=== PATIENT | male | born 1965 | race Caucasian/White ===

== ENCOUNTER 2017-03-03 16:32 | Emergency (ER) | payer BC, MEDICARE ==
[2017-03-03 17:10] VITALS: BP 155/93
--- NOTE | 2017-03-03 17:25 | EDM.PDOC ---
ED HPI GENERAL MEDICAL PROBLEM - General Chief Complaint: Upper Extremity Injury/Pain Stated Complaint: R WRIST INFECTION Time Seen by Provider: 03/03/17 17:14 Source of Information: Reports: Patient, RN Notes Reviewed - History of Present Illness INITIAL COMMENTS - FREE TEXT/NARRATIVE: 51-year-old male comes in with cellulitis dorsum of right hand. States he was working under the baeza of a vehicle about 3-4 days ago, suffered some type of puncture wound from a sharp edge of something protruding under the root of the vehicle. He states he immediately juan a his hand back. Unsure type injury. He was not concerned about retained metal or wood although everything was somewhat dirty under the baeza. He states this did not bleed much. The last 2 days this become very red swollen and more uncomfortable. No fever or chills. Right Hand Pain Score (Numeric/FACES): 7 - Related Data Allergies Allergy/AdvReac Type Severity Reaction Status Date / Time Penicillins Allergy Rash Verified 06/28/16 09:26 Sulfa (Sulfonamide Allergy Rash Verified 06/28/16 09:26 Antibiotics) Home Meds: Home Meds Insulin Glarg,Human.Rec.Analog [Lantus] 40 units INJECT BEDTIME 05/18/14 [ History] atorvaSTATin [Lipitor] 60 mg PO DAILY 05/18/14 [History] oxyCODONE HCl/Acetaminophen [Percocet 5-325 mg Tablet] 5 - 325 mg PO ASDIRECTED PRN 05/18/14 [History] Invocana 80 mg PO DAILY 12/03/15 [History] Zolpidem Tartrate [Ambien] 5 mg PO BEDTIME 12/03/15 [History] ALPRAZolam [Alprazolam] 0.5 mg PO TID PRN 06/28/16 [History] Albuterol Sulfate [Proair Hfa] 2 puff INH Q4H PRN 06/28/16 [History] Cyclobenzaprine [Flexeril] 10 mg PO Q8H PRN 06/28/16 [History] DULoxetine [Cymbalta] 60 mg PO DAILY 06/28/16 [History] Lisinopril 2.5 mg PO DAILY 06/28/16 [History] Varenicline Tartrate [Chantix] 1 mg PO BID 06/28/16 [History] Cephalexin 500 mg PO Q6HR #30 capsule 03/03/17 [Rx] Doxycycline [Vibramycin] 100 mg PO BID #20 cap 03/03/17 [Rx] Past Medical History HEENT History: Reports: Impaired Vision Other HEENT History: wears eyeglasses Cardiovascular History: Reports: High Cholesterol, Hypertension Respiratory History: Reports: Asthma, Bronchitis, Recurrent Gastrointestinal History: Reports: None Genitourinary History: Reports: Renal Calculus Musculoskeletal History: Reports: Back Pain, Chronic Other Musculoskeletal History: RBKA 1987, 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 Neurological History: Reports: Migraines Psychiatric History: Reports: Anxiety, Depression Endocrine/Metabolic History: Reports: Diabetes, Type II Oncologic (Cancer) History: Reports: None Dermatologic History: Reports: Psoriasis - Infectious Disease History Infectious Disease History: Reports: Chicken Pox - Past Surgical History GI Surgical History: Reports: Colonoscopy, EGD Social & Family History - Family History Family Medical History: Noncontributory - Tobacco Use Smoking Status *Q: Former Smoker Years of Tobacco use: 40 Packs/Tins Daily: 2 Second Hand Smoke Exposure: Yes - Caffeine Use Caffeine Use: Reports: Coffee - Alcohol Use Days Per Week of Alcohol Use: 3 Number of Drinks Per Day: 3 Total Drinks Per Week: 9 - Recreational Drug Use Recreational Drug Use: No Review of Systems - Review of Systems Review Of Systems: See Below Eyes: Reports: No Symptoms Mouth/Throat: Reports: No Symptoms Respiratory: Denies: Shortness of Breath Cardiovascular: Denies: Chest Pain GI/Abdominal: Denies: Nausea, Vomiting Musculoskeletal: Reports: Other (area of infection dorsum of right hand base of right thumb). Denies: Joint Pain Skin: Reports: Erythema (area of infection right hand) Neurological: Denies: Numbness, Tingling ED EXAM, GENERAL - Physical Exam Exam: See Below General Appearance: Alert, No Apparent Distress Throat/Mouth: Normal Inspection Head: Atraumatic. No: Facial Swelling Neck: Supple Respiratory/Chest: No Respiratory Distress Extremities: Redness (3-4 cm large area of erythema, mild swelling over dorsal base of right thumb, no open skin wound at this time, no fluctuance, no drainage mild soft tissue tenderness, good thumb range of motion, skin otherwise clear) Course - Vital Signs Last Recorded V/S: Last Vital Signs Temp 97.2 F 03/03/17 17:09 Pulse 97 03/03/17 17:09 Resp 20 03/03/17 17:09 BP 155/93 H 03/03/17 17:09 Pulse Ox 95 03/03/17 17:09 Departure - Departure Time of Disposition: 17:22 Disposition: Home, Self-Care 01 Condition: Fair Clinical Impression: Cellulitis Qualifiers: Site of cellulitis: extremity Site of cellulitis of extremity: upper extremity Laterality: right Qualified Code(s): L03.113 - Cellulitis of right upper limb - Discharge Information Prescriptions: Cephalexin 500 mg PO Q6HR #30 capsule Doxycycline [Vibramycin] 100 mg PO BID #20 cap Referrals: Natalya Wiseman NP [Primary Care Provider] - Forms: ED Department Discharge Additional Instructions: cephalexin 500 mg 4 times daily until gone, doxycycline 100 mg twice daily for 10 days or until gone, this needs to gradually start getting better day by day and should be considerably better within 3-5 days, follow-up clinic early next week if not much better, return to ED as needed
== END 2017-03-03 17:40 | disposition home or self-care (01) ==
LOC: JD.ED 16:32
DX: L03.113 Cellulitis of right upper limb (principal); E78.00 Pure hypercholesterolemia, unspecified; E11.9 Type 2 diabetes mellitus without complications; I10 Essential (primary) hypertension; Z88.0 Allergy status to penicillin; Z88.2 Allergy status to sulfonamides; Z79.4 Long term (current) use of insulin; Z79.899 Other long term (current) drug therapy; Z87.442 Personal history of urinary calculi; Z87.891 Personal history of nicotine dependence
CPT/HCPCS: 99283

== ENCOUNTER 2017-08-17 22:36 | Emergency (ER) | payer MEDICARE ==
[2017-08-17 22:55] VITALS: BP 164/84
[2017-08-17] MEDS ORDERED: Ketorolac 30 MG/ML SDV IM ONE (23:16)
[2017-08-17] MEDS ORDERED: Cyclobenzaprine 10 MG Tab PO ONE (23:16)
--- NOTE | 2017-08-17 23:21 | EDM.PDOC ---
ED HPI GENERAL MEDICAL PROBLEM - General Chief Complaint: Lower Extremity Injury/Pain Stated Complaint: CRAMPING DOWN BOTH LEGS Time Seen by Provider: 08/17/17 23:05 Source of Information: Reports: Patient - History of Present Illness INITIAL COMMENTS - FREE TEXT/NARRATIVE: Patient is here today requesting a refill on his chronic pain medications. Patient states that he has chronic lower back pain with bilateral sciatica. He has a previous amputation of his right lower extremity with a tree stump tankage grinder proximally 30 years ago and states that he's been having more phantom pain recently. Patient has had a complete workup of his lower back pain including several MRIs , consults with neurosurgeons and pain injections. Patient states there is nothing new about his pain today, it he is just here because he is out of medication. He states that he fell on the ice sometime ago and had to take more of his pain medication. Denies any loss of bowel or bladder function. Bilateral Leg Pain Score (Numeric/FACES): 9 - Related Data Allergies Allergy/AdvReac Type Severity Reaction Status Date / Time Penicillins Allergy Rash Verified 06/28/16 09:26 Sulfa (Sulfonamide Allergy Rash Verified 06/28/16 09:26 Antibiotics) Home Meds: Home Meds Insulin Glarg,Human.Rec.Analog [Lantus] 40 units INJECT BEDTIME 05/18/14 [ History] atorvaSTATin [Lipitor] 60 mg PO DAILY 05/18/14 [History] oxyCODONE HCl/Acetaminophen [Percocet 5-325 mg Tablet] 5 - 325 mg PO ASDIRECTED PRN 05/18/14 [History] Zolpidem Tartrate [Ambien] 5 mg PO BEDTIME 12/03/15 [History] ALPRAZolam [Alprazolam] 0.5 mg PO TID PRN 06/28/16 [History] Albuterol Sulfate [Proair Hfa] 2 puff INH Q4H PRN 06/28/16 [History] Cyclobenzaprine [Flexeril] 10 mg PO Q8H PRN 06/28/16 [History] Lisinopril 2.5 mg PO DAILY 06/28/16 [History] Diclofenac Sodium [Voltaren] 100 gm TP TID PRN #100 gel..gram. 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 Neurological History: Reports: Migraines Psychiatric History: Reports: Anxiety, Depression Endocrine/Metabolic History: Reports: Diabetes, Type II Oncologic (Cancer) History: Reports: None Dermatologic History: Reports: Psoriasis - Infectious Disease History Infectious Disease History: Reports: Chicken Pox - Past Surgical History GI Surgical History: Reports: Colonoscopy, EGD Social & Family History - Family History Family Medical History: Noncontributory - Tobacco Use Smoking Status *Q: Current Every Day Smoker Years of Tobacco use: 30 Packs/Tins Daily: 1 Second Hand Smoke Exposure: Yes - Caffeine Use Caffeine Use: Reports: Coffee - Alcohol Use Days Per Week of Alcohol Use: 3 Number of Drinks Per Day: 3 Total Drinks Per Week: 9 - Recreational Drug Use Recreational Drug Use: No Review of Systems - Review of Systems Review Of Systems: See Below Constitutional: Reports: No Symptoms Respiratory: Reports: No Symptoms Cardiovascular: Reports: No Symptoms Musculoskeletal: Reports: Back Pain, Muscle Pain, Muscle Stiffness, Other Skin: Reports: No Symptoms (Phantom pain of her lower extremity.) Neurological: Reports: No Symptoms Psychiatric: Reports: No Symptoms ED EXAM, GENERAL - Physical Exam Exam: See Below Exam Limited By: No Limitations General Appearance: Alert, WD/WN, No Apparent Distress Respiratory/Chest: No Respiratory Distress, Lungs Clear, Decreased Breath Sounds (Bilateral bases), Prolonged Expiration Cardiovascular: Normal Peripheral Pulses, Regular Rate, Rhythm, No Murmur Peripheral Pulses: 2+: Posterior Tibial (L) Back Exam: Normal Inspection, Decreased Range of Motion (Limited lumbar range of motion due to pain and lack of flexibility.), Muscle Spasm (Lumbar), Paraspinal Tenderness (Lumbar). No: Vertebral Tenderness Extremities: Normal Inspection, Normal Range of Motion, Other (Below-knee amputation to right lower extremity.) Neurological: Alert, Oriented Psychiatric: Normal Affect, Anxious Skin Exam: Warm, Dry, Intact Course - Vital Signs Last Recorded V/S: Last Vital Signs Temp 98.1 F 03/16/18 22:54 Pulse 84 08/17/17 22:54 Resp 20 08/17/17 22:54 BP 164/84 H 08/17/17 22:54 Pulse Ox 98 08/17/17 22:54 - Re-Assessments/Exams Free Text/Narrative Re-Assessment/Exam: Patient is here requesting refills of his alprazolam, diazepam and oxycodone. Patient has been filling these on a regular basis with his PCP, Natalya Wiseman per [facility]. On 07/24 he received diazepam 5 mg 60 quantity, oxycodone- acetaminophen 10-325 180 quantity and on 07/25/17 he received alprazolam 1 mg 90 quantity. Patient denies any new or different pain. He did discuss with patient at length that we do not refill chronic medications in the emergency room, especially controlled substances. Excellent patient the importance of taking these as prescribed so that he has enough to last through the month. Offered patient a Toradol injection and his scheduled dose of cyclobenzaprine which he accepts. Will also send Voltaren gel to pharmacy. Patient is to follow-up with his primary provider on Sunday or certainly return to the emergency room for any emergent need. 08/17/17 23:24 Departure - Departure Time of Disposition: 23:27 Disposition: Home, Self-Care 01 Condition: Good Clinical Impression: Chronic back pain Qualifiers: Back pain location: low back pain Back pain laterality: bilateral Sciatica presence: with sciatica Sciatica laterality: bilateral sciatica Qualified Code(s ): M54.42 - Lumbago with sciatica, left side; M54.41 - Lumbago with sciatica, right side; M54.41 - Lumbago with sciatica, right side; G89.29 - Other chronic pain; G89.29 - Other chronic pain - Discharge Information Prescriptions: Diclofenac Sodium [Voltaren] 100 gm TP TID PRN #100 gel..gram. PRN Reason: Pain Referrals: Natalya Wiseman, MAINTENANCE OF WAY SUPERINTENDENT [Primary Care Provider] - Additional Instructions: You were given an injection of ketorolac and your scheduled dose of cyclobenzaprine in the ER. You were prescribed a topical gel called diclofenac was also sent to pharmacy for you to supervisor opening and picking in the morning. Consider starting yoga as well. Ice or heat as needed for pain. Follow-up with your primary provider on Sunday to discuss better management of your pain or return to the emergency room as needed.
== END 2017-08-17 23:41 | disposition home or self-care (01) ==
LOC: JD.ED 22:36
DX: G89.29 Other chronic pain (principal); M54.41 Lumbago with sciatica, right side; M54.42 Lumbago with sciatica, left side; I10 Essential (primary) hypertension; E78.00 Pure hypercholesterolemia, unspecified; J45.909 Unspecified asthma, uncomplicated; F32.9 Major depressive disorder, single episode, unspecified; E11.9 Type 2 diabetes mellitus without complications; F17.210 Nicotine dependence, cigarettes, uncomplicated; Z79.899 Other long term (current) drug therapy; Z79.4 Long term (current) use of insulin; Z88.0 Allergy status to penicillin; Z88.2 Allergy status to sulfonamides
CPT/HCPCS: 96372; 99282; A9270; J1885; 99283

== ENCOUNTER 2019-08-22 06:44 | Emergency (ER) | payer MEDICARE, OTHER ==
[2019-08-22 07:01] VITALS: BP 168/122; PULSE 64
[2019-08-22] MEDS ORDERED: Sodium Chloride 0.9% 10 ML Syringe FLUSH PRN (07:09)
[2019-08-22] MEDS ORDERED: Sodium Chloride 0.9% 1,000 ML IV STA (07:09)
[2019-08-22] MEDS ORDERED: HYDROmorphone 1 MG/ML Syringe IVPUSH ONE (07:11)
--- NOTE | 2019-08-22 07:57 | EDM.PDOC ---
ED HPI GENERAL MEDICAL PROBLEM - General Chief Complaint: Abdominal Pain Stated Complaint: BACK AND ABDOMINAL PAIN Time Seen by Provider: 08/22/19 06:58 Source of Information: Reports: Patient History Limitations: Reports: No Limitations - History of Present Illness INITIAL COMMENTS - FREE TEXT/NARRATIVE: The patient presents with lower abdominal pain. This has been going on for about 2 days. He has no nausea or vomiting with it. He did have some loose stools and they were greasy. He had been diagnosed with colitis a few weeks ago and he was on some antibiotics and it got better. He has no fever or chills. He has no chest pain or shortness of breath. He has no dysuria or hematuria. He says the pain starts in his left flank and it radiated to both the left and right lower abdomen. He says he had kidney stones in the past but this feels different. Onset: Gradual Duration: Day(s): Location: Reports: Abdomen, Back Quality: Reports: Sharp Severity: Severe Improves with: Reports: None Worsens with: Reports: None Associated Symptoms: Denies: Chest Pain, Cough, Fever/Chills, Headaches, Nausea/ Vomiting, Shortness of Breath Bilateral Lower Abdomen Pain Score (Numeric/FACES): 7 - Related Data Allergies Allergy/AdvReac Type Severity Reaction Status Date / Time Penicillins Allergy Rash Verified 08/22/19 07:01 Sulfa (Sulfonamide Allergy Rash Verified 08/22/19 07:01 Antibiotics) Home Meds: Home Meds Insulin Glarg,Human.Rec.Analog [Lantus] 40 units INJECT BEDTIME 05/18/14 [ History] atorvaSTATin [Lipitor] 60 mg PO DAILY 05/18/14 [History] oxyCODONE HCl/Acetaminophen [Percocet 5-325 mg Tablet] 5 - 325 mg PO ASDIRECTED PRN 05/18/14 [History] Zolpidem Tartrate [Ambien] 5 mg PO BEDTIME 12/03/15 [History] ALPRAZolam [Alprazolam] 0.5 mg PO TID PRN 06/28/16 [History] Albuterol Sulfate [Proair Hfa] 2 puff INH Q4H PRN 06/28/16 [History] Cyclobenzaprine [Flexeril] 10 mg PO Q8H PRN 06/28/16 [History] Lisinopril 2.5 mg PO DAILY 06/28/16 [History] Diclofenac Sodium [Voltaren] 100 gm TP TID PRN #100 gel..gram. 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 Neurological History: Reports: Migraines Psychiatric History: Reports: Anxiety, Depression Endocrine/Metabolic History: Reports: Diabetes, Type II Oncologic (Cancer) History: Reports: None Dermatologic History: Reports: Psoriasis - Infectious Disease History Infectious Disease History: Reports: Chicken Pox - Past Surgical History GI Surgical History: Reports: Colonoscopy, EGD Social & Family History - Family History Family Medical History: Noncontributory - Caffeine Use Caffeine Use: Reports: Coffee ED ROS GENERAL - Review of Systems Review Of Systems: See Below Constitutional: Reports: No Symptoms HEENT: Reports: No Symptoms Respiratory: Reports: No Symptoms Cardiovascular: Reports: No Symptoms Endocrine: Reports: No Symptoms GI/Abdominal: Reports: Abdominal Pain. Denies: Diarrhea, Nausea, Vomiting : Reports: Flank Pain (Left) ED EXAM, GI/ABD - Physical Exam Exam: See Below Exam Limited By: No Limitations General Appearance: Alert, No Apparent Distress Ears: Normal External Exam Nose: Normal Inspection Head: Atraumatic, Normocephalic Neck: Normal Inspection Respiratory/Chest: No Respiratory Distress, Lungs Clear, Normal Breath Sounds Cardiovascular: Regular Rate, Rhythm, No Edema, No Murmur GI/Abdominal Exam: Soft, No Organomegaly, No Mass, Tender (Moderate tenderness to the left and right lower abdomen) Back Exam: CVA Tenderness (L) Course - Vital Signs Last Recorded V/S: Last Vital Signs Temp 96.1 F L 08/22/19 06:56 Pulse 64 08/22/19 06:56 Resp 18 08/22/19 06:56 BP 168/122 H 08/22/19 06:56 Pulse Ox 100 08/22/19 06:56 - Orders/Labs/Meds Orders: Active Orders 24 hr Category Date Time Status Peripheral IV Care [RC] . DIRECTED Care 08/22/19 07:09 Active UA W/MICROSCOPIC [URIN] Stat Lab 08/22/19 07:09 Ordered Sodium Chloride 0.9% [Saline Flush] Med 08/22/19 07:09 Active 10 ml FLUSH ASDIRECTED PRN Peripheral IV Insertion Adult [OM.PC] Stat Oth 08/22/19 07:09 Ordered Medication Orders Sodium Chloride (Saline Flush) 10 ml FLUSH ASDIRECTED PRN PRN Reason: Keep Vein Open Last Admin: 08/22/19 07:49 Dose: 10 ml Labs: Laboratory Tests 08/22/19 08/22/19 Range/Units 07:45 07:45 WBC 5.86 (4.23-9.07) K/mm3 RBC 4.97 (4.63-6.08) M/mm3 Hgb 14.9 (13.7-17.5) gm/dl Hct 42.4 (40.1-51.0) % MCV 85.3 (79.0-92.2) fl MCH 30.0 (25.7-32.2) pg MCHC 35.1 (32.2-35.5) g/dl RDW Std Deviation 40.6 (35.1-43.9) fL Plt Count 247 (163-337) K/mm3 MPV 10.8 (9.4-12.3) fl Neut % (Auto) 62.0 (34.0-67.9) % Lymph % (Auto) 26.1 (21.8-53.1) % Nolan % (Auto) 10.1 (5.3-12.2) % Eos % (Auto) 1.4 (0.8-7.0) Baso % (Auto) 0.2 (0.1-1.2) % Neut # (Auto) 3.64 (1.78-5.38) K/mm3 Lymph # (Auto) 1.53 (1.32-3.57) K/mm3 Nolan # (Auto) 0.59 (0.30-0.82) K/mm3 Eos # (Auto) 0.08 (0.04-0.54) K/mm3 Baso # (Auto) 0.01 (0.01-0.08) K/mm3 Sodium 145 D (136-145) mEq/L Potassium 3.7 (3.5-5.1) mEq/L Chloride 106 (98-107) mEq/L Carbon Dioxide 27 (21-32) mEq/L Anion Gap 15.7 H (5-15) BUN 7 (7-18) mg/dL Creatinine 0.8 (0.7-1.3) mg/dL Est Cr Clr Drug Dosing 107.73 mL/min Estimated GFR (MDRD) > 60 (>60) mL/min BUN/Creatinine Ratio 8.8 L (14-18) Glucose 237 H (74-106) mg/dL Calcium 8.9 (8.5-10.1) mg/dL Total Bilirubin 0.3 (0.2-1.0) mg/dL AST 14 L (15-37) U/L ALT 28 (16-63) U/L Alkaline Phosphatase 62 (46-116) U/L Total Protein 7.3 (6.4-8.2) g/dl Albumin 3.7 (3.4-5.0) g/dl Globulin 3.6 gm/dL Albumin/Globulin Ratio 1.0 (1-2) Lipase 123 (73-393) U/L Meds: Medications Generic Name Dose Route Start Last Admin Trade Name Anastasiia PRN Reason Stop Dose Admin Sodium Chloride 10 ml 08/22/19 07:09 08/22/19 07:49 Saline Flush FLUSH 10 ml ASDIRECTED PRN Administration Keep Vein Open Discontinued Medications Generic Name Dose Route Start Last Admin Trade Name Freq PRN Reason Stop Dose Admin Hydromorphone HCl 1 mg 08/22/19 07:11 08/22/19 07:49 Dilaudid IVPUSH 08/22/19 07:12 1 mg ONETIME ONE Administration Sodium Chloride 1,000 mls @ 1,000 mls/hr 08/22/19 07:09 08/22/19 07:47 Normal Saline IV 08/22/19 08:08 1,000 mls/hr .BOLUS STA Administration - Re-Assessments/Exams Free Text/Narrative Re-Assessment/Exam: 08/22/19 07:56 I ordered an IV NS 1L bolus, dilaudid 1mg IV, labs, UA and a CT of his abdomen and pelvis without IV or oral contrast. 08/22/19 07:57 08/22/19 09:22 His CBC looks good. His glucose was elevated at 237. His CT shows no renal calculi, ureteral dilatation or ureteral stone is seen. Mild increased stool throughout the colon. Small fat-containing left inguinal hernia. I am not sure what is causing his pain at this time. It could be some constipation. I will get him something for the pain. Departure - Departure Time of Disposition: :25 Disposition: Home, Self-Care 01 Condition: Good Clinical Impression: Abdominal pain Qualifiers: Abdominal location: lower abdomen, unspecified Qualified Code(s): R10.30 - Lower abdominal pain, unspecified - Discharge Information *PRESCRIPTION DRUG MONITORING PROGRAM REVIEWED*: Not Applicable *COPY OF PRESCRIPTION DRUG MONITORING REPORT IN PATIENT SLICK: Not Applicable Prescriptions: oxyCODONE HCl/Acetaminophen [Percocet 10-325 mg Tablet] 1 each PO Q6H PRN #20 tablet PRN Reason: Pain Referrals: Natalya Wiseman INSTRUMENTATION INSTRUCTOR [Primary Care Provider] - Forms: ED Department Discharge Additional Instructions: Drink plenty of fluids. Take a stool softener and try some magnesium citrate to help have a bowel movement. Take the percocet as needed for pain. Please return if you are worse. Sepsis Event Note - Evaluation Sepsis Screening Result: No Definite Risk - Focused Exam Vital Signs: Vital Signs Temp Pulse Resp BP Pulse Ox 08/22/19 06:56 96.1 F L 64 18 168/122 H 100 Date Exam was Performed: 08/22/19 Time Exam was Performed: 09:22 - My Orders Last 24 Hours: My Active Orders 08/22/19 07:09 Peripheral IV Care [RC] . DIRECTED UA W/MICROSCOPIC [URIN] Stat Sodium Chloride 0.9% [Saline Flush] 10 ml FLUSH ASDIRECTED PRN Peripheral IV Insertion Adult [OM.PC] Stat - Assessment/Plan Last 24 Hours: My Active Orders 08/22/19 07:09 Peripheral IV Care [RC] . DIRECTED UA W/MICROSCOPIC [URIN] Stat Sodium Chloride 0.9% [Saline Flush] 10 ml FLUSH ASDIRECTED PRN Peripheral IV Insertion Adult [OM.PC] Stat
--- NOTE | 2019-08-22 08:12 | CT ---
CT abdomen and pelvis Technique: Multiple axial sections were obtained from below the dome of the diaphragm inferiorly to the pubic symphysis. Intravenous and oral contrast not utilized. Study has been performed as a ureteral stone protocol. Comparison: No previous CT abdomen or pelvis exam is available. Findings: Kidneys show no abnormal calcifications. No ureteral dilatation or ureteral stone is seen. Visualized lung bases show nothing acute. Visualized liver and spleen shows no focal abnormality. Adrenal glands show no nodule. Pancreas is within normal limits. Gallbladder contains no calcified gallstones. Aorta shows atherosclerotic calcification without aneurysm. No retroperitoneal adenopathy or mesenteric abnormalities are seen. No pelvic mass or adenopathy is seen. Appendix is seen which appears normal in size. Fat-containing left inguinal hernia is noted. Mild increased stool is noted throughout the colon. Bone window settings were reviewed which show scattered degenerative change within the spine as well as joint space narrowing within the superior right hip. Impression: 1. No renal calculi, ureteral dilatation or ureteral stone is seen. 2. Mild increased stool throughout the colon. 3. Small fat-containing left inguinal hernia. Diagnostic code #2 Study was dictated in MDT
== END 2019-08-22 09:50 | disposition home or self-care (01) ==
LOC: JD.ED 06:44
DX: R10.31 Right lower quadrant pain (principal); R10.32 Left lower quadrant pain; I10 Essential (primary) hypertension; E11.9 Type 2 diabetes mellitus without complications; E78.00 Pure hypercholesterolemia, unspecified; J45.909 Unspecified asthma, uncomplicated; F41.9 Anxiety disorder, unspecified; F32.9 Major depressive disorder, single episode, unspecified; Z88.0 Allergy status to penicillin; Z88.2 Allergy status to sulfonamides; Z79.899 Other long term (current) drug therapy; Z79.4 Long term (current) use of insulin
CPT/HCPCS: 36415; 74176; 80053; 83690; 85025; 96361; 96374; 99284; J1170; J7030; 99283

== ENCOUNTER 2019-09-20 15:23 | Observation (INO) | payer MEDICARE, OTHER ==
[2019-09-20] MEDS ORDERED: Sodium Chloride 0.9% 10 ML Syringe FLUSH PRN (15:47)
--- NOTE | 2019-09-20 16:11 | EDM.PDOC ---
ED HPI GENERAL MEDICAL PROBLEM - General Chief Complaint: Diabetic Complaint Stated Complaint: BLOOD SUGAR OVER 400 FOR SEVERAL HOURS Time Seen by Provider: 09/20/19 15:26 Source of Information: Reports: Patient History Limitations: Reports: No Limitations - History of Present Illness INITIAL COMMENTS - FREE TEXT/NARRATIVE: Patient is a 54-year-old male who presents to the ER with complaints of elevated blood sugars over the last few days. Patient is type 2 insulin- dependent diabetic. States that he started having elevated blood sugars on . States his home blood sugars have been in the 200s to 300s. He takes Lantus 40 units at bedtime, however states he has been taking it much more frequently. Today he took 80 units of Lantus at about 8 AM and then another 40 units at 1:00. States his blood sugar at home was 3 50-400. He does not use a short acting insulin. He is also on metformin 1000 mg twice daily. Patient denies any respiratory illness, fever, chills, nausea, vomiting , or diarrhea. He has been having an increase in his restless legs and states that his vision has been "off ". Describes intermittent blurry vision and occasionally seeing off colors. States at one point his hand appeared purple but that resolved. He has had no chest pain or shortness of breath. He does complain of intermittent spasms in his bilateral shoulders. He denies any drug or alcohol abuse. 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 He has a prosthetic that he states does not fit well but denies any open wounds to the area. Patient's primary care provider is Mirna Wiseman NP. States he saw her approximately 1 month ago and that his A1c was "good ". He thinks it was less than 7 but is unsure. He has never been on a short acting insulin. States he has lost 80 pounds over the last couple years and has never had a problem with elevated blood sugars. Generalized Pain Score (Numeric/FACES): 9 - Related Data Allergies Allergy/AdvReac Type Severity Reaction Status Date / Time Penicillins Allergy Rash Verified 09/20/19 19:07 Sqmzbnv-Oeh-Mgn Reductase Allergy Other Verified 09/20/19 19:07 Inhibitor Sulfa (Sulfonamide Allergy Rash Verified 09/20/19 19:07 Antibiotics) Home Meds: Home Meds Insulin Glarg,Human.Rec.Analog [Lantus] 25 units INJECT DAILY 05/18/14 [History] RX: Cyclobenzaprine [Flexeril] 5 mg PO Q8H PRN 06/28/16 [History] HYDROmorphone [Dilaudid] 4 mg PO Q8HR PRN 09/20/19 [History] Meloxicam [Mobic] 15 mg PO DAILY 09/20/19 [History] RX: tiZANidine [Zanaflex] 4 mg PO BID PRN 09/20/19 [History] diazePAM [Valium] 5 mg PO Q6HR PRN 09/20/19 [History] metFORMIN HCl [Metformin HCl ER] 1,000 mg PO DAILY 09/20/19 [History] oxyCODONE HCl/Acetaminophen [Percocet 10-325 mg Tablet] 1 each PO Q6HR PRN 09/19 [History] Past Medical History HEENT History: Reports: Impaired Vision Other HEENT History: wears eyeglasses Cardiovascular History: Reports: High Cholesterol, Hypertension Respiratory History: Reports: Asthma, Bronchitis, Recurrent Gastrointestinal History: Reports: None Genitourinary History: Reports: Renal Calculus Musculoskeletal History: Reports: Back Pain, Chronic Other Musculoskeletal History: RBKA 1987, 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 Neurological History: Reports: Migraines Psychiatric History: Reports: Anxiety, Depression Endocrine/Metabolic History: Reports: Diabetes, Type II Oncologic (Cancer) History: Reports: None Dermatologic History: Reports: Psoriasis - Infectious Disease History Infectious Disease History: Reports: Chicken Pox - Past Surgical History GI Surgical History: Reports: Colonoscopy, EGD Social & Family History - Family History Family Medical History: Noncontributory - Tobacco Use Smoking Status *Q: Current Every Day Smoker Years of Tobacco use: 15 Packs/Tins Daily: 0.5 - Caffeine Use Caffeine Use: Reports: Coffee - Recreational Drug Use Recreational Drug Use: No ED ROS GENERAL - Review of Systems Review Of Systems: See Below Constitutional: Reports: No Symptoms. Denies: Fever, Chills, Weakness, Fatigue HEENT: Reports: Vision Change Respiratory: Reports: No Symptoms. Denies: Shortness of Breath, Wheezing, Cough Cardiovascular: Reports: No Symptoms. Denies: Chest Pain, Lightheadedness, Palpitations, Syncope Endocrine: Reports: High Glucose, Polydypsia. Denies: Polyuria GI/Abdominal: Reports: No Symptoms. Denies: Abdominal Pain, Diarrhea, Nausea, Vomiting : Reports: No Symptoms Musculoskeletal: Reports: Other (Intermittent bilateral shoulder spasms and restless legs.) Skin: Reports: No Symptoms Neurological: Reports: No Symptoms. Denies: Confusion, Dizziness, Headache Psychiatric: Reports: No Symptoms Hematologic/Lymphatic: Reports: No Symptoms Immunologic: Reports: No Symptoms ED EXAM GENERAL NO PERIP PULSE - Physical Exam Exam: See Below Exam Limited By: No Limitations General Appearance: Alert, WD/WN, Anxious Eye Exam: Bilateral Eye: Normal Inspection, PERRL Respiratory/Chest: No Respiratory Distress, Lungs Clear, Normal Breath Sounds, No Accessory Muscle Use, Chest Non-Tender Cardiovascular: Normal Peripheral Pulses, Regular Rate, Rhythm, No Edema, No Gallop, No JVD, No Murmur, No Rub GI/Abdominal: Normal Bowel Sounds, Soft, Non-Tender, No Organomegaly, No Distention, No Abnormal Bruit, No Mass Extremities: Normal Inspection, Normal Range of Motion, Non-Tender, No Pedal Edema, Normal Capillary Refill, Other (Slight scattered areas of mild redness to his below the knee amputation stump. No open areas, no swelling or drainage. No signs of infection.) Neurological: Alert, Oriented, CN II-XII Intact, Normal Cognition, Normal Reflexes, No Motor/Sensory Deficits, Other (tremor) Psychiatric: Normal Affect, Anxious Skin Exam: Warm, Dry, Intact, Normal Color, No Rash Course - Vital Signs Last Recorded V/S: Last Vital Signs Temp 97.7 F 09/20/19 18:48 Pulse 70 09/20/19 18:54 Resp 20 09/20/19 18:48 BP 140/70 09/20/19 18:54 Pulse Ox 99 09/20/19 18:48 - Orders/Labs/Meds Orders: Active Orders 24 hr Category Date Time Status Sodium Chloride 0.9% [Saline Flush] Med 09/20/19 15:47 Active 10 ml FLUSH ASDIRECTED PRN Peripheral IV Insertion Adult [OM.PC] Stat Oth 09/20/19 15:47 Ordered Medication Orders Acetaminophen (Tylenol) 650 mg PO Q4H PRN PRN Reason: Pain (Mild 1-3)/fever Albuterol/Ipratropium (Duoneb 3.0-0.5 Mg/3 Ml) 3 ml NEB Q4H PRN PRN Reason: Shortness Of Breath/wheezing Dextrose/Water (Dextrose 50% In Water) 50 ml IVPUSH ASDIRECTED PRN PRN Reason: Blood sugar <60 Docusate Sodium (Colace) 100 mg PO BID PRN PRN Reason: Constipation Enoxaparin Sodium (Lovenox) 40 mg SUBCUT DAILY [facility] Lactated Ringer's (Ringers, Lactated) 1,000 mls @ 75 mls/hr IV ASDIRECTED [facility] Last Admin: 09/20/19 20:00 Dose: 75 mls/hr Magnesium Sulfate 2 gm/ Premix 50 mls @ 25 mls/hr IV ONETIME ONE Stop: 09/20/19 21:59 Insulin Glargine (Lantus) 30 unit SUBCUT DAILY@2200 [facility] Miscellaneous Information (Remove Patch) 1 ea TRDERM DAILY [facility] Morphine Sulfate (Morphine) 1 mg IVPUSH Q4H PRN PRN Reason: Pain (severe 7-10) Last Admin: 09/20/19 20:02 Dose: 1 mg Nicotine (Habitrol) 14 mg TRDERM DAILY [facility] Last Admin: 09/20/19 19:26 Dose: Not Given Ondansetron HCl (Zofran) 4 mg IV Q4H PRN PRN Reason: Nausea/Vomiting Oxycodone/Acetaminophen (Percocet 325-5 Mg) 1 tab PO Q8H PRN PRN Reason: Pain (moderate 4-6) Sodium Chloride (Saline Flush) 10 ml FLUSH ASDIRECTED PRN PRN Reason: Keep Vein Open Last Admin: 09/20/19 15:55 Dose: 10 ml Temazepam (Restoril) 15 mg PO BEDTIME PRN PRN Reason: Sleep Labs: Laboratory Tests 09/20/19 09/20/19 09/20/19 Range/Units 15:33 15:53 15:53 WBC 5.53 (4.23-9.07) K/mm3 RBC 4.92 (4.63-6.08) M/mm3 Hgb 14.7 (13.7-17.5) gm/dl Hct 41.9 (40.1-51.0) % MCV 85.2 (79.0-92.2) fl MCH 29.9 (25.7-32.2) pg MCHC 35.1 (32.2-35.5) g/dl RDW Std Deviation 39.7 (35.1-43.9) fL Plt Count 233 (163-337) K/mm3 MPV 10.6 (9.4-12.3) fl Neut % (Auto) 50.8 (34.0-67.9) % Lymph % (Auto) 34.7 (21.8-53.1) % Pi[place] % (Auto) 12.3 H (5.3-12.2) % Eos % (Auto) 1.6 (0.8-7.0) Baso % (Auto) 0.4 (0.1-1.2) % Neut # (Auto) 2.81 (1.78-5.38) K/mm3 Lymph # (Auto) 1.92 (1.32-3.57) K/mm3 [place] # (Auto) 0.68 (0.30-0.82) K/mm3 Eos # (Auto) 0.09 (0.04-0.54) K/mm3 Baso # (Auto) 0.02 (0.01-0.08) K/mm3 Puncture Site ABG pH (7.35-7.45) ABG pCO2 (35.0-45.0) mmHg ABG pO2 (80.0-100.0) mmHg ABG HCO3 (22.0-26.0) meq/L ABG O2 Saturation (96.0-97.0) % ABG Base Excess (-2-2.0) Raymond Test A-a Gradient mmHg O2 Delivery Device FiO2 (21.00-100.00) % Sodium 133 L D (136-145) mEq/L Potassium 3.5 (3.5-5.1) mEq/L Chloride 98 (98-107) mEq/L Carbon Dioxide 25 (21-32) mEq/L Anion Gap 13.5 (5-15) BUN 9 (7-18) mg/dL Creatinine 0.9 (0.7-1.3) mg/dL Est Cr Clr Drug Dosing 95.76 mL/min Estimated GFR (MDRD) > 60 (>60) mL/min BUN/Creatinine Ratio 10.0 L (14-18) Glucose 413 H (74-106) mg/dL POC Glucose 376 H (70-105) mg/dL Hemoglobin A1c (4.50-6.20) % Lactic Acid (0.4-2.0) mmol/L Calcium 8.5 (8.5-10.1) mg/dL Magnesium 1.5 L (1.8-2.4) mg/dl Total Bilirubin 0.3 (0.2-1.0) mg/dL AST 18 (15-37) U/L ALT 39 (16-63) U/L Alkaline Phosphatase 68 (46-116) U/L Creatine Kinase (39-308) U/L Troponin I (0.00-0.056) ng/mL Total Protein 6.8 (6.4-8.2) g/dl Albumin 3.3 L (3.4-5.0) g/dl Globulin 3.5 gm/dL Albumin/Globulin Ratio 0.9 L (1-2) Urine Color (Yellow) Urine Appearance (Clear) Urine pH (5.0-8.0) Ur Specific Beulah (1.005-1.030) Urine Protein (Negative) Urine Glucose (UA) (Negative) Urine Ketones (Negative) Urine Occult Blood (Negative) Urine Nitrite (Negative) Urine Bilirubin (Negative) Urine Urobilinogen (0.2-1.0) Ur Leukocyte Esterase (Negative) Urine RBC (0-5) /hpf Urine WBC (0-5) /hpf Ur Squamous Epith Cells (0-5) /hpf Urine Bacteria (FEW) /hpf Urine Mucus (FEW) /hpf Urine Opiates Screen (TBYJQZ=238) Ur Buprenorphine Scrn (CUTOFF=10) Ur Oxycodone Screen (MDJ9LY=735) Urine Methadone Screen (BRU2RY=458) Ur Propoxyphene Screen (CSWCNJ=761) Ur Barbiturates Screen (CYJEXK=960) Ur Tricyclics Screen (OFFBRK=198) Ur Phencyclidine Scrn (CUTOFF=25) Ur Amphetamine Screen (VADSIP=286) U Methamphetamines Scrn (YSWGGU=080) U Benzodiazepines Scrn (TIHHKA=655) U Cocaine Metab Screen (TBLVBP=187) U Marijuana (THC) Screen (CUTOFF=50) Ketones (0.0-0.3) mM 09/20/19 09/20/19 09/20/19 Range/Units 15:53 15:53 15:53 WBC (4.23-9.07) K/mm3 RBC (4.63-6.08) M/mm3 Hgb (13.7-17.5) gm/dl Hct (40.1-51.0) % MCV (79.0-92.2) fl MCH (25.7-32.2) pg MCHC (32.2-35.5) g/dl RDW Std Deviation (35.1-43.9) fL Plt Count (163-337) K/mm3 MPV (9.4-12.3) fl Neut % (Auto) (34.0-67.9) % Lymph % (Auto) (21.8-53.1) % Piute % (Auto) (5.3-12.2) % Eos % (Auto) (0.8-7.0) Baso % (Auto) (0.1-1.2) % Neut # (Auto) (1.78-5.38) K/mm3 Lymph # (Auto) (1.32-3.57) K/mm3 [place] # (Auto) (0.30-0.82) K/mm3 Eos # (Auto) (0.04-0.54) K/mm3 Baso # (Auto) (0.01-0.08) K/mm3 Puncture Site ABG pH (7.35-7.45) ABG pCO2 (35.0-45.0) mmHg ABG pO2 (80.0-100.0) mmHg ABG HCO3 (22.0-26.0) meq/L ABG O2 Saturation (96.0-97.0) % ABG Base Excess (-2-2.0) Raymond Test A-a Gradient mmHg O2 Delivery Device FiO2 (21.00-100.00) % Sodium (136-145) mEq/L Potassium (3.5-5.1) mEq/L Chloride (98-107) mEq/L Carbon Dioxide (21-32) mEq/L Anion Gap (5-15) BUN (7-18) mg/dL Creatinine (0.7-1.3) mg/dL Est Cr Clr Drug Dosing mL/min Estimated GFR (MDRD) (>60) mL/min BUN/Creatinine Ratio (14-18) Glucose (74-106) mg/dL POC Glucose (70-105) mg/dL Hemoglobin A1c 8.40 H (4.50-6.20) % Lactic Acid (0.4-2.0) mmol/L Calcium (8.5-10.1) mg/dL Magnesium (1.8-2.4) mg/dl Total Bilirubin (0.2-1.0) mg/dL AST (15-37) U/L ALT (16-63) U/L Alkaline Phosphatase (46-116) U/L Creatine Kinase (39-308) U/L Troponin I < 0.017 (0.00-0.056) ng/mL Total Protein (6.4-8.2) g/dl Albumin (3.4-5.0) g/dl Globulin gm/dL Albumin/Globulin Ratio (1-2) Urine Color (Yellow) Urine Appearance (Clear) Urine pH (5.0-8.0) Ur Specific [place] (1.005-1.030) Urine Protein (Negative) Urine Glucose (UA) (Negative) Urine Ketones (Negative) Urine Occult Blood (Negative) Urine Nitrite (Negative) Urine Bilirubin (Negative) Urine Urobilinogen (0.2-1.0) Ur Leukocyte Esterase (Negative) Urine RBC (0-5) /hpf Urine WBC (0-5) /hpf Ur Squamous Epith Cells (0-5) /hpf Urine Bacteria (FEW) /hpf Urine Mucus (FEW) /hpf Urine Opiates Screen (RWREHM=766) Ur Buprenorphine Scrn (CUTOFF=10) Ur Oxycodone Screen (ZXE7RX=269) Urine Methadone Screen (LGM7VZ=280) Ur Propoxyphene Screen (WBWPXE=488) Ur Barbiturates Screen (TIMRLV=732) Ur Tricyclics Screen (JQJCHI=001) Ur Phencyclidine Scrn (CUTOFF=25) Ur Amphetamine Screen (QITPKD=666) U Methamphetamines Scrn (LEWJOP=526) U Benzodiazepines Scrn (CZNLUM=422) U Cocaine Metab Screen (ZFMEXS=614) U Marijuana (THC) Screen (CUTOFF=50) Ketones 0.14 (0.0-0.3) mM 09/20/19 09/20/19 09/20/19 Range/Units 15:53 16:03 16:29 WBC (4.23-9.07) K/mm3 RBC (4.63-6.08) M/mm3 Hgb (13.7-17.5) gm/dl Hct (40.1-51.0) % MCV (79.0-92.2) fl MCH (25.7-32.2) pg MCHC (32.2-35.5) g/dl RDW Std Deviation (35.1-43.9) fL Plt Count (163-337) K/mm3 MPV (9.4-12.3) fl Neut % (Auto) (34.0-67.9) % Lymph % (Auto) (21.8-53.1) % Pi[place] % (Auto) (5.3-12.2) % Eos % (Auto) (0.8-7.0) Baso % (Auto) (0.1-1.2) % Neut # (Auto) (1.78-5.38) K/mm3 Lymph # (Auto) (1.32-3.57) K/mm3 [place] # (Auto) (0.30-0.82) K/mm3 Eos # (Auto) (0.04-0.54) K/mm3 Baso # (Auto) (0.01-0.08) K/mm3 Puncture Site ABG pH (7.35-7.45) ABG pCO2 (35.0-45.0) mmHg ABG pO2 (80.0-100.0) mmHg ABG HCO3 (22.0-26.0) meq/L ABG O2 Saturation (96.0-97.0) % ABG Base Excess (-2-2.0) Raymond Test A-a Gradient mmHg O2 Delivery Device FiO2 (21.00-100.00) % Sodium (136-145) mEq/L Potassium (3.5-5.1) mEq/L Chloride (98-107) mEq/L Carbon Dioxide (21-32) mEq/L Anion Gap (5-15) BUN (7-18) mg/dL Creatinine (0.7-1.3) mg/dL Est Cr Clr Drug Dosing mL/min Estimated GFR (MDRD) (>60) mL/min BUN/Creatinine Ratio (14-18) Glucose (74-106) mg/dL POC Glucose (70-105) mg/dL Hemoglobin A1c (4.50-6.20) % Lactic Acid 3.5 H* (0.4-2.0) mmol/L Calcium (8.5-10.1) mg/dL Magnesium (1.8-2.4) mg/dl Total Bilirubin (0.2-1.0) mg/dL AST (15-37) U/L ALT (16-63) U/L Alkaline Phosphatase (46-116) U/L Creatine Kinase 54 (39-308) U/L Troponin I (0.00-0.056) ng/mL Total Protein (6.4-8.2) g/dl Albumin (3.4-5.0) g/dl Globulin gm/dL Albumin/Globulin Ratio (1-2) Urine Color Yellow (Yellow) Urine Appearance Clear (Clear) Urine pH 6.5 (5.0-8.0) Ur Specific [place] 1.015 (1.005-1.030) Urine Protein Negative (Negative) Urine Glucose (UA) 2+ H (Negative) Urine Ketones Negative (Negative) Urine Occult Blood Negative (Negative) Urine Nitrite Negative (Negative) Urine Bilirubin Negative (Negative) Urine Urobilinogen 0.2 (0.2-1.0) Ur Leukocyte Esterase Negative (Negative) Urine RBC 0-5 (0-5) /hpf Urine WBC 0-5 (0-5) /hpf Ur Squamous Epith Cells 0-5 (0-5) /hpf Urine Bacteria Occasional (FEW) /hpf Urine Mucus Not seen (FEW) /hpf Urine Opiates Screen (ACQMUD=405) Ur Buprenorphine Scrn (CUTOFF=10) Ur Oxycodone Screen (GXY0PR=927) Urine Methadone Screen (WYX4IS=382) Ur Propoxyphene Screen (OEDNWM=116) Ur Barbiturates Screen (DXWKKN=213) Ur Tricyclics Screen (IVQHXD=675) Ur Phencyclidine Scrn (CUTOFF=25) Ur Amphetamine Screen (DECFUL=413) U Methamphetamines Scrn (XFENOG=073) U Benzodiazepines Scrn (KXNYQL=608) U Cocaine Metab Screen (JHMQUU=711) U Marijuana (THC) Screen (CUTOFF=50) Ketones (0.0-0.3) mM 09/20/19 09/20/19 Range/Units 16:45 17:52 WBC (4.23-9.07) K/mm3 RBC (4.63-6.08) M/mm3 Hgb (13.7-17.5) gm/dl Hct (40.1-51.0) % MCV (79.0-92.2) fl MCH (25.7-32.2) pg MCHC (32.2-35.5) g/dl RDW Std Deviation (35.1-43.9) fL Plt Count (163-337) K/mm3 MPV (9.4-12.3) fl Neut % (Auto) (34.0-67.9) % Lymph % (Auto) (21.8-53.1) % [place] % (Auto) (5.3-12.2) % Eos % (Auto) (0.8-7.0) Baso % (Auto) (0.1-1.2) % Neut # (Auto) (1.78-5.38) K/mm3 Lymph # (Auto) (1.32-3.57) K/mm3 [place] # (Auto) (0.30-0.82) K/mm3 Eos # (Auto) (0.04-0.54) K/mm3 Baso # (Auto) (0.01-0.08) K/mm3 Puncture Site Lt radial ABG pH 7.36 (7.35-7.45) ABG pCO2 40.0 (35.0-45.0) mmHg ABG pO2 82.0 (80.0-100.0) mmHg ABG HCO3 22.0 (22.0-26.0) meq/L ABG O2 Saturation 97.0 (96.0-97.0) % ABG Base Excess -2.6 L (-2-2.0) Raymond Test Positive A-a Gradient 18 mmHg O2 Delivery Device Room air FiO2 21.00 (21.00-100.00) % Sodium (136-145) mEq/L Potassium (3.5-5.1) mEq/L Chloride (98-107) mEq/L Carbon Dioxide (21-32) mEq/L Anion Gap (5-15) BUN (7-18) mg/dL Creatinine (0.7-1.3) mg/dL Est Cr Clr Drug Dosing mL/min Estimated GFR (MDRD) (>60) mL/min BUN/Creatinine Ratio (14-18) Glucose (74-106) mg/dL POC Glucose (70-105) mg/dL Hemoglobin A1c (4.50-6.20) % Lactic Acid (0.4-2.0) mmol/L Calcium (8.5-10.1) mg/dL Magnesium (1.8-2.4) mg/dl Total Bilirubin (0.2-1.0) mg/dL AST (15-37) U/L ALT (16-63) U/L Alkaline Phosphatase (46-116) U/L Creatine Kinase (39-308) U/L Troponin I (0.00-0.056) ng/mL Total Protein (6.4-8.2) g/dl Albumin (3.4-5.0) g/dl Globulin gm/dL Albumin/Globulin Ratio (1-2) Urine Color (Yellow) Urine Appearance (Clear) Urine pH (5.0-8.0) Ur Specific [place] (1.005-1.030) Urine Protein (Negative) Urine Glucose (UA) (Negative) Urine Ketones (Negative) Urine Occult Blood (Negative) Urine Nitrite (Negative) Urine Bilirubin (Negative) Urine Urobilinogen (0.2-1.0) Ur Leukocyte Esterase (Negative) Urine RBC (0-5) /hpf Urine WBC (0-5) /hpf Ur Squamous Epith Cells (0-5) /hpf Urine Bacteria (FEW) /hpf Urine Mucus (FEW) /hpf Urine Opiates Screen Negative (BXOWFO=573) Ur Buprenorphine Scrn Negative (CUTOFF=10) Ur Oxycodone Screen Presumptive positive H (PLC6WH=641) Urine Methadone Screen Negative (WUY9NC=965) Ur Propoxyphene Screen Negative (MGMYGB=437) Ur Barbiturates Screen Negative (SRVERF=579) Ur Tricyclics Screen Negative (ILPQUD=687) Ur Phencyclidine Scrn Negative (CUTOFF=25) Ur Amphetamine Screen Negative (UNGXAX=558) U Methamphetamines Scrn Negative (PEIAJS=449) U Benzodiazepines Scrn Presumptive positive H (IEUWBV=201) U Cocaine Metab Screen Negative (VQWVFN=928) U Marijuana (THC) Screen Negative (CUTOFF=50) Ketones (0.0-0.3) mM Meds: Medications Generic Name Dose Route Start Last Admin Trade Name Freq PRN Reason Stop Dose Admin Acetaminophen 650 mg 09/20/19 18:34 Tylenol PO Q4H PRN Pain (Mild 1-3)/fever Albuterol/Ipratropium 3 ml 09/20/19 18:34 Duoneb 3.0-0.5 Mg/3 Ml NEB Q4H PRN Shortness Of Breath/wheezing Dextrose/Water 50 ml 09/20/19 18:34 Dextrose 50% In Water IVPUSH ASDIRECTED PRN Blood sugar <60 Docusate Sodium 100 mg 09/20/19 18:34 Colace PO BID PRN Constipation Enoxaparin Sodium 40 mg 09/21/19 09:00 Lovenox SUBCUT DAILY [facility] Lactated Ringer's 1,000 mls @ 75 mls/hr 09/20/19 19:45 09/20/19 20:00 Ringers, Lactated IV 75 mls/hr ASDIRECTED [facility] Administration Magnesium Sulfate 2 gm/ Premix 50 mls @ 25 mls/hr 09/20/19 20:00 IV 09/20/19 21:59 ONETIME ONE Insulin Glargine 30 unit 09/20/19 22:00 Lantus SUBCUT DAILY@2200 [facility] Miscellaneous Information 1 ea 09/21/19 09:00 Remove Patch TRDERM DAILY [facility] Morphine Sulfate 1 mg 09/20/19 19:35 09/20/19 20:02 Morphine IVPUSH 1 mg Q4H PRN Administration Pain (severe 7-10) Nicotine 14 mg 09/20/19 18:45 09/20/19 19:26 Habitrol TRDERM Not Given DAILY [facility] Ondansetron HCl 4 mg 09/20/19 18:34 Zofran IV Q4H PRN Nausea/Vomiting Oxycodone/Acetaminophen 1 tab 09/20/19 19:34 Percocet 325-5 Mg PO Q8H PRN Pain (moderate 4-6) Sodium Chloride 10 ml 09/20/19 15:47 09/20/19 15:55 Saline Flush FLUSH 10 ml ASDIRECTED PRN Administration Keep Vein Open Temazepam 15 mg 09/20/19 18:34 Restoril PO BEDTIME PRN Sleep Discontinued Medications Generic Name Dose Route Start Last Admin Trade Name Freq PRN Reason Stop Dose Admin Cyclobenzaprine HCl 10 mg 09/20/19 17:08 09/20/19 17:32 Flexeril PO 09/20/19 17:09 10 mg ONETIME ONE Administration Diazepam 2 mg 09/20/19 16:57 09/20/19 19:11 Valium IVPUSH 09/20/19 16:58 Not Given ONETIME ONE Hydromorphone HCl 0.5 mg 09/20/19 16:43 09/20/19 16:50 Dilaudid IVPUSH 09/20/19 16:44 0.5 mg ONETIME ONE Administration Sodium Chloride 1,000 mls @ 999 mls/hr 09/20/19 16:15 09/20/19 16:26 Normal Saline IV 999 mls/hr ASDIRECTED [facility] Administration Potassium Chloride/Sodium Chloride 1,000 mls @ 75 mls/hr 09/20/19 18:45 09/19 19:24 1/2 Ns With 20 Meq Kcl IV 75 mls/hr ASDIRECTED [facility] Administration Insulin Glargine 24 unit 09/21/19 09:00 Lantus SUBCUT DAILY [facility] Insulin Human Lispro 0 unit 09/20/19 22:00 Humalog SUBCUT QIDACANDBED [facility] Protocol Morphine Sulfate 1 mg 09/20/19 18:34 Morphine IVPUSH 09/21/19 18:41 Q2H PRN Pain (severe 7-10) Oxycodone/Acetaminophen 1 tab 09/20/19 18:34 Percocet 325-5 Mg PO Q4H PRN Pain (moderate 4-6) Potassium Chloride 40 meq 09/20/19 19:41 09/20/19 20:03 Klor-Con M20 PO 09/20/19 19:42 40 meq ONETIME ONE Administration - Re-Assessments/Exams Free Text/Narrative Re-Assessment/Exam: I have ordered a CBC, CMP, Mg, UA, urine drug screen, serum ketones, ekg and a 1L bolus of NS. Will assess further treatment need once lab results are available. 09/20/19 17:20 Patient was heard moaning loudly in the room. I went to visit with the patient again. He states that he is having muscle spasms throughout his body and pain throughout his back. Medical records work obtained from [place]. Patient has a quite extensive medication list of controlled substances including Valium, Xanax, Percocet, Dilaudid, Zanaflex, and Flexeril. Discussed this with the patient. He states he has chronic back pain in addition to muscle spasms which he did not mention on previous exam. When asked about the numerous medications he is prescribed for muscle spasms, he does state that he has frequent muscle spasms as well. Patient states he has not taken any of these medications because he ran out of Percocet on . He states that he gets 200 tablets a month and he ran out on and is not due for a refill until this coming week. He denies using any of his benzodiazepines to treat his muscle spasms. He states he does not take his Lyrica because it "does not help ". Of his medications that he is currently prescribed he states the only thing that he is taking is his metformin 1000 mg twice daily as well as his Lantus. Based on his demeanor and restlessness in the bed, my suspicion is that he may be going through opiate withdrawal which is contributing to his hyperglycemia. I have ordered Dilaudid 0.5 mg for pain as well as Flexeril 10 mg for muscle spasms. Spoke with Dr. Jimenez and she requested that we have an ABG and a CPK completed as patient's lactic acid is elevated at 3.5. I am going to hold off on insulin at this time since he is currently taken a total of 120 units of Lantus thus far today. 09/20/191814 Patient's muscle spasms, restless leg, tremor and overall restlessness improved significantly after the Dilaudid was given which further supports my suspicion of opioid withdrawal. Patient was calm in the bed. Discussed with him my suspicions. He states he does have a prescription of Percocet to be picked up at [facility] on Sunday. With the large amount of Lantus he took, continued hyperglycemia, as well as his elevated lactic acid, I do feel that it would be beneficial for him to be observed overnight. SCOTT Thomas was here to see the patient. He will be admitted for observation. Patient is in agreement with this plan. Departure - Departure Time of Disposition: 18:15 Disposition: Refer to Observation Condition: Fair Clinical Impression: Hyperglycemia Opioid dependence Qualifiers: Substance use status: in withdrawal Qualified Code(s): F11.23 - Opioid dependence with withdrawal - Discharge Information Sepsis Event Note - Evaluation Sepsis Screening Result: No Definite Risk - Focused Exam Vital Signs: Vital Signs Temp Pulse Resp BP Pulse Ox 09/20/19 15:34 98.4 F 81 13 150/99 H 96 Date Exam was Performed: 09/20/19 Time Exam was Performed: 20:30 - My Orders Last 24 Hours: My Active Orders 09/20/19 15:47 Sodium Chloride 0.9% [Saline Flush] 10 ml FLUSH ASDIRECTED PRN Peripheral IV Insertion Adult [OM.PC] Stat - Assessment/Plan Last 24 Hours: My Active Orders 09/20/19 15:47 Sodium Chloride 0.9% [Saline Flush] 10 ml FLUSH ASDIRECTED PRN Peripheral IV Insertion Adult [OM.PC] Stat
[2019-09-20] MEDS ORDERED: Sodium Chloride 0.9% 1,000 ML IV SCH (16:15)
[2019-09-20 16:24] LABS: HEMOGLOBIN A1C 8.4 % (4.50-6.20)
[2019-09-20] MEDS ORDERED: HYDROmorphone 0.5 MG/0.5 ML Syringe IVPUSH ONE (16:43)
[2019-09-20] MEDS ORDERED: Cyclobenzaprine 10 MG Tab PO ONE (17:08)
[2019-09-20] MEDS ORDERED: Morphine 2 MG/ML SYRINGE IVPUSH PRN (18:34)
[2019-09-20] MEDS ORDERED: Albuterol/Ipratropium 3.0-0.5 MG/3 ML Neb Soln NEB PRN (18:34)
[2019-09-20] MEDS ORDERED: Acetaminophen/oxyCODONE 325-5 MG Tab PO PRN (18:34)
[2019-09-20] MEDS ORDERED: Docusate Sodium 100 MG Cap PO PRN (18:34)
[2019-09-20] MEDS ORDERED: Ondansetron 4 MG/2 ML SDV IV PRN (18:34)
[2019-09-20] MEDS ORDERED: Temazepam 15 MG Cap PO PRN (18:34)
[2019-09-20] MEDS ORDERED: 50% Dextrose in Water 50 ML Syringe IVPUSH PRN (18:34)
[2019-09-20] MEDS ORDERED: Acetaminophen 325 MG Tab PO PRN (18:34)
[2019-09-20] MEDS ORDERED: Sodium Chloride 0.45% with KCl 1,000 ML IV SCH (18:45)
--- NOTE | 2019-09-20 19:01 | PCM.HP.2 ---
H&P History of Present Illness - General Date of Service: 09/20/19 Admit Problem/Dx: Admission Diagnosis/Problem Admission Diagnosis/Problem Hyperglycemia, opioid withdrawal Source of Information: Patient History Limitations: Reports: No Limitations - History of Present Illness Initial Comments - Free Text/Narative: The patient is a 54 year old male, PCP Natalya Wiseman APRN, with a past medical history of diabetes mellitus type II, chronic back pain with chronic opioid use , peripheral neuropathy, and PTSD. The patient presented to the emergency room after experiencing body shakes, muscle spasms, and head pounding for past 2 days. Since , the patient states body shaking has been constant. He has fine tremors of hands but just at rest, whole arm with start shaking. He does not lose consciousness. He has not fallen. His blood sugars have been in the 300s for past 2 days as well and this morning, his blood sugar was 400 so he took 80 units of Lantus. Blood sugar was still elevated at noon so he took another 40 units of Lantus. He usually takes Lantus 24 units daily and blood sugars are 120-200. The patient states he takes Percocet 10mg every 4 hours but has been out of medications since Sunday night. His PCP and he have been reportedly working to decrease opioid use and patient has prescription written for Percocet 5mg to be filled on Sunday. 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 The patient denies changes in vision, shortness of breath, chest pain, palpitations. He denies nausea. He does have dizziness on and off. In the ED, patient given cyclobenzaprine 10mg po x1, diazepam 2mg IV x1, and hydromorphone 0.5mg IV x1. On examination, after medication administration, patient does continue to have tremors of upper extremities though per nursing muscle spasms and body shakes have lessened. The patient is admitted on observation under the care of the hospitalist team for further workup and management of hyperglycemia , uncontrolled diabetes mellitus type II and opioid withdrawal. Generalized Pain Score (Numeric/FACES): 9 - Related Data Allergies/Adverse Reactions: Allergies Allergy/AdvReac Type Severity Reaction Status Date / Time Penicillins Allergy Rash Verified 09/20/19 19:07 Idijvaz-Qvv-[id number] Reductase Allergy Other Verified 09/20/19 19:07 Inhibitor Sulfa (Sulfonamide Allergy Rash Verified 09/20/19 19:07 Antibiotics) Home Medications: Home Meds Insulin Glarg,Human.Rec.Analog [Lantus] 1 units INJECT ASDIRECTED 05/18/14 [ History] ALPRAZolam [Alprazolam] 1 mg PO TID PRN 06/28/16 [History] Albuterol Sulfate [Proair Hfa] 2 puff INH Q4H PRN 06/28/16 [History] Cyclobenzaprine [Flexeril] 5 mg PO Q8H PRN 06/28/16 [History] HYDROmorphone [Dilaudid] 4 mg PO Q8HR PRN 09/20/19 [History] Meloxicam [Mobic] 15 mg PO DAILY 09/20/19 [History] diazePAM [Valium] 5 mg PO Q6HR PRN 09/20/19 [History] metFORMIN HCl [Metformin HCl ER] 1,000 mg PO DAILY 09/20/19 [History] oxyCODONE HCl/Acetaminophen [Percocet 10-325 mg Tablet] 1 each PO Q4HR PRN 09/19 [History] tiZANidine [Zanaflex] 4 mg PO BID 09/20/19 [History] Past Medical History HEENT History: Reports: Impaired Vision Other HEENT History: wears eyeglasses Cardiovascular History: Reports: High Cholesterol Respiratory History: Reports: COPD Gastrointestinal History: Reports: None Genitourinary History: Reports: Renal Calculus Musculoskeletal History: Reports: Amputation (R BKA), Back Pain, Chronic Other Musculoskeletal History: RBKA 1987, 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 Neurological History: Reports: Migraines Psychiatric History: Reports: Anxiety, Depression Endocrine/Metabolic History: Reports: Diabetes, Type II Oncologic (Cancer) History: Reports: None Dermatologic History: Reports: Psoriasis - Infectious Disease History Infectious Disease History: Reports: Chicken Pox - Past Surgical History GI Surgical History: Reports: Colonoscopy, EGD Social & Family History - Family History Family Medical History: Noncontributory Neurological: Reports: Alzheimers Disease (Father), CVA (Father) - Tobacco Use Smoking Status *Q: Current Every Day Smoker Years of Tobacco use: 15 Packs/Tins Daily: 0.5 - Caffeine Use Caffeine Use: Reports: Coffee - Recreational Drug Use Recreational Drug Use: No H&P Review of Systems - Review of Systems: Review Of Systems: See Below General: Reports: Weakness. Denies: Fever, Chills HEENT: Denies: Eye Pain, Sore Throat Pulmonary: Denies: Shortness of Breath Cardiovascular: Denies: Chest Pain, Palpitations Gastrointestinal: Denies: Abdominal Pain, Nausea, Vomiting Musculoskeletal: Reports: Back Pain, Joint Pain Psychiatric: Reports: Anxiety, Other (PTSD) Neurological: Reports: Dizziness, Headache (throbbing frontal), Other ( peripheral neuropathy, shaking of hands, arms, muscle spasms/convulsions) Exam - Exam Exam: See Below - Vital Signs Vital Signs: Last Vital Signs Temp 98.4 F 09/20/19 15:34 Pulse 81 09/20/19 15:34 Resp 13 09/20/19 15:34 BP 150/99 H 09/20/19 15:34 Pulse Ox 96 09/20/19 15:34 Weight: 198 lb - Exam General: Alert, Oriented, Other (Anxious appearing, does make eye contact) HEENT: EOMI, Pupils Equal, Pupils Reactive Lungs: Clear to Auscultation. No: Crackles, Rales, Wheezing Cardiovascular: Regular Rate, Regular Rhythm, Normal S1, Normal S2, Other ( distant heart sounds) GI/Abdominal Exam: Soft, Non-Tender, No Distention Extremities: No Pedal Edema, Normal Capillary Refill, Other (hands with tremors) Peripheral Pulses: 2+: Posterior Tibial (L), Posterior Tibial (R) Skin: Warm, Dry, Intact Neurological: Strength Equal Bilateral, Normal Speech. No: Focal Deficit Neuro Extensive - Mental Status: Alert, Oriented x3, Normal Mood/Affect Psychiatric: Alert, Normal Affect, Anxious - Patient Data Lab Results Last 24 hrs: Laboratory Results - last 24 hr 09/20/19 09/20/19 09/20/19 Range/Units 15:33 15:53 15:53 WBC 5.53 (4.23-9.07) K/mm3 RBC 4.92 (4.63-6.08) M/mm3 Hgb 14.7 (13.7-17.5) gm/dl Hct 41.9 (40.1-51.0) % MCV 85.2 (79.0-92.2) fl MCH 29.9 (25.7-32.2) pg MCHC 35.1 (32.2-35.5) g/dl RDW Std Deviation 39.7 (35.1-43.9) fL Plt Count 233 (163-337) K/mm3 MPV 10.6 (9.4-12.3) fl Neut % (Auto) 50.8 (34.0-67.9) % Lymph % (Auto) 34.7 (21.8-53.1) % [place] % (Auto) 12.3 H (5.3-12.2) % Eos % (Auto) 1.6 (0.8-7.0) Baso % (Auto) 0.4 (0.1-1.2) % Neut # (Auto) 2.81 (1.78-5.38) K/mm3 Lymph # (Auto) 1.92 (1.32-3.57) K/mm3 [place] # (Auto) 0.68 (0.30-0.82) K/mm3 Eos # (Auto) 0.09 (0.04-0.54) K/mm3 Baso # (Auto) 0.02 (0.01-0.08) K/mm3 Puncture Site ABG pH (7.35-7.45) ABG pCO2 (35.0-45.0) mmHg ABG pO2 (80.0-100.0) mmHg ABG HCO3 (22.0-26.0) meq/L ABG O2 Saturation (96.0-97.0) % ABG Base Excess (-2-2.0) Raymond Test A-a Gradient mmHg O2 Delivery Device FiO2 (21.00-100.00) % Sodium 133 L D (136-145) mEq/L Potassium 3.5 (3.5-5.1) mEq/L Chloride 98 (98-107) mEq/L Carbon Dioxide 25 (21-32) mEq/L Anion Gap 13.5 (5-15) BUN 9 (7-18) mg/dL Creatinine 0.9 (0.7-1.3) mg/dL Est Cr Clr Drug Dosing 95.76 mL/min Estimated GFR (MDRD) > 60 (>60) mL/min BUN/Creatinine Ratio 10.0 L (14-18) Glucose 413 H (74-106) mg/dL POC Glucose 376 H (70-105) mg/dL Hemoglobin A1c (4.50-6.20) % Lactic Acid (0.4-2.0) mmol/L Calcium 8.5 (8.5-10.1) mg/dL Magnesium 1.5 L (1.8-2.4) mg/dl Total Bilirubin 0.3 (0.2-1.0) mg/dL AST 18 (15-37) U/L ALT 39 (16-63) U/L Alkaline Phosphatase 68 (46-116) U/L Creatine Kinase (39-308) U/L Troponin I (0.00-0.056) ng/mL Total Protein 6.8 (6.4-8.2) g/dl Albumin 3.3 L (3.4-5.0) g/dl Globulin 3.5 gm/dL Albumin/Globulin Ratio 0.9 L (1-2) Urine Color (Yellow) Urine Appearance (Clear) Urine pH (5.0-8.0) Ur Specific [place] (1.005-1.030) Urine Protein (Negative) Urine Glucose (UA) (Negative) Urine Ketones (Negative) Urine Occult Blood (Negative) Urine Nitrite (Negative) Urine Bilirubin (Negative) Urine Urobilinogen (0.2-1.0) Ur Leukocyte Esterase (Negative) Urine RBC (0-5) /hpf Urine WBC (0-5) /hpf Ur Squamous Epith Cells (0-5) /hpf Urine Bacteria (FEW) /hpf Urine Mucus (FEW) /hpf Urine Opiates Screen (MZEPQF=409) Ur Buprenorphine Scrn (CUTOFF=10) Ur Oxycodone Screen (QML0OX=136) Urine Methadone Screen (PQR3RJ=334) Ur Propoxyphene Screen (GVBBUB=619) Ur Barbiturates Screen (ABAFZF=848) Ur Tricyclics Screen (CABMVF=438) Ur Phencyclidine Scrn (CUTOFF=25) Ur Amphetamine Screen (ADNQNS=847) U Methamphetamines Scrn (JDHRDG=616) U Benzodiazepines Scrn (SPVGFC=294) U Cocaine Metab Screen (QQFLYA=160) U Marijuana (THC) Screen (CUTOFF=50) Ketones (0.0-0.3) mM 09/20/19 09/20/19 09/20/19 Range/Units 15:53 15:53 15:53 WBC (4.23-9.07) K/mm3 RBC (4.63-6.08) M/mm3 Hgb (13.7-17.5) gm/dl Hct (40.1-51.0) % MCV (79.0-92.2) fl MCH (25.7-32.2) pg MCHC (32.2-35.5) g/dl RDW Std Deviation (35.1-43.9) fL Plt Count (163-337) K/mm3 MPV (9.4-12.3) fl Neut % (Auto) (34.0-67.9) % Lymph % (Auto) (21.8-53.1) % [place] % (Auto) (5.3-12.2) % Eos % (Auto) (0.8-7.0) Baso % (Auto) (0.1-1.2) % Neut # (Auto) (1.78-5.38) K/mm3 Lymph # (Auto) (1.32-3.57) K/mm3 [place] # (Auto) (0.30-0.82) K/mm3 Eos # (Auto) (0.04-0.54) K/mm3 Baso # (Auto) (0.01-0.08) K/mm3 Puncture Site ABG pH (7.35-7.45) ABG pCO2 (35.0-45.0) mmHg ABG pO2 (80.0-100.0) mmHg ABG HCO3 (22.0-26.0) meq/L ABG O2 Saturation (96.0-97.0) % ABG Base Excess (-2-2.0) Raymond Test A-a Gradient mmHg O2 Delivery Device FiO2 (21.00-100.00) % Sodium (136-145) mEq/L Potassium (3.5-5.1) mEq/L Chloride (98-107) mEq/L Carbon Dioxide (21-32) mEq/L Anion Gap (5-15) BUN (7-18) mg/dL Creatinine (0.7-1.3) mg/dL Est Cr Clr Drug Dosing mL/min Estimated GFR (MDRD) (>60) mL/min BUN/Creatinine Ratio (14-18) Glucose (74-106) mg/dL POC Glucose (70-105) mg/dL Hemoglobin A1c 8.40 H (4.50-6.20) % Lactic Acid (0.4-2.0) mmol/L Calcium (8.5-10.1) mg/dL Magnesium (1.8-2.4) mg/dl Total Bilirubin (0.2-1.0) mg/dL AST (15-37) U/L ALT (16-63) U/L Alkaline Phosphatase (46-116) U/L Creatine Kinase (39-308) U/L Troponin I < 0.017 (0.00-0.056) ng/mL Total Protein (6.4-8.2) g/dl Albumin (3.4-5.0) g/dl Globulin gm/dL Albumin/Globulin Ratio (1-2) Urine Color (Yellow) Urine Appearance (Clear) Urine pH (5.0-8.0) Ur Specific [place] (1.005-1.030) Urine Protein (Negative) Urine Glucose (UA) (Negative) Urine Ketones (Negative) Urine Occult Blood (Negative) Urine Nitrite (Negative) Urine Bilirubin (Negative) Urine Urobilinogen (0.2-1.0) Ur Leukocyte Esterase (Negative) Urine RBC (0-5) /hpf Urine WBC (0-5) /hpf Ur Squamous Epith Cells (0-5) /hpf Urine Bacteria (FEW) /hpf Urine Mucus (FEW) /hpf Urine Opiates Screen (TQPOOM=853) Ur Buprenorphine Scrn (CUTOFF=10) Ur Oxycodone Screen (TVQ2SD=022) Urine Methadone Screen (MTS1EW=202) Ur Propoxyphene Screen (RSFOCX=764) Ur Barbiturates Screen (FJCWOY=108) Ur Tricyclics Screen (JOQTCK=084) Ur Phencyclidine Scrn (CUTOFF=25) Ur Amphetamine Screen (TWRBBT=577) U Methamphetamines Scrn (DEQBSD=907) U Benzodiazepines Scrn (XGOLTG=144) U Cocaine Metab Screen (HWDXDI=047) U Marijuana (THC) Screen (CUTOFF=50) Ketones 0.14 (0.0-0.3) mM 09/20/19 09/20/19 09/20/19 Range/Units 15:53 16:03 16:29 WBC (4.23-9.07) K/mm3 RBC (4.63-6.08) M/mm3 Hgb (13.7-17.5) gm/dl Hct (40.1-51.0) % MCV (79.0-92.2) fl MCH (25.7-32.2) pg MCHC (32.2-35.5) g/dl RDW Std Deviation (35.1-43.9) fL Plt Count (163-337) K/mm3 MPV (9.4-12.3) fl Neut % (Auto) (34.0-67.9) % Lymph % (Auto) (21.8-53.1) % [place] % (Auto) (5.3-12.2) % Eos % (Auto) (0.8-7.0) Baso % (Auto) (0.1-1.2) % Neut # (Auto) (1.78-5.38) K/mm3 Lymph # (Auto) (1.32-3.57) K/mm3 [place] # (Auto) (0.30-0.82) K/mm3 Eos # (Auto) (0.04-0.54) K/mm3 Baso # (Auto) (0.01-0.08) K/mm3 Puncture Site ABG pH (7.35-7.45) ABG pCO2 (35.0-45.0) mmHg ABG pO2 (80.0-100.0) mmHg ABG HCO3 (22.0-26.0) meq/L ABG O2 Saturation (96.0-97.0) % ABG Base Excess (-2-2.0) Raymond Test A-a Gradient mmHg O2 Delivery Device FiO2 (21.00-100.00) % Sodium (136-145) mEq/L Potassium (3.5-5.1) mEq/L Chloride (98-107) mEq/L Carbon Dioxide (21-32) mEq/L Anion Gap (5-15) BUN (7-18) mg/dL Creatinine (0.7-1.3) mg/dL Est Cr Clr Drug Dosing mL/min Estimated GFR (MDRD) (>60) mL/min BUN/Creatinine Ratio (14-18) Glucose (74-106) mg/dL POC Glucose (70-105) mg/dL Hemoglobin A1c (4.50-6.20) % Lactic Acid 3.5 H* (0.4-2.0) mmol/L Calcium (8.5-10.1) mg/dL Magnesium (1.8-2.4) mg/dl Total Bilirubin (0.2-1.0) mg/dL AST (15-37) U/L ALT (16-63) U/L Alkaline Phosphatase (46-116) U/L Creatine Kinase 54 (39-308) U/L Troponin I (0.00-0.056) ng/mL Total Protein (6.4-8.2) g/dl Albumin (3.4-5.0) g/dl Globulin gm/dL Albumin/Globulin Ratio (1-2) Urine Color Yellow (Yellow) Urine Appearance Clear (Clear) Urine pH 6.5 (5.0-8.0) Ur Specific [place] 1.015 (1.005-1.030) Urine Protein Negative (Negative) Urine Glucose (UA) 2+ H (Negative) Urine Ketones Negative (Negative) Urine Occult Blood Negative (Negative) Urine Nitrite Negative (Negative) Urine Bilirubin Negative (Negative) Urine Urobilinogen 0.2 (0.2-1.0) Ur Leukocyte Esterase Negative (Negative) Urine RBC 0-5 (0-5) /hpf Urine WBC 0-5 (0-5) /hpf Ur Squamous Epith Cells 0-5 (0-5) /hpf Urine Bacteria Occasional (FEW) /hpf Urine Mucus Not seen (FEW) /hpf Urine Opiates Screen (BOSLAR=592) Ur Buprenorphine Scrn (CUTOFF=10) Ur Oxycodone Screen (EMA0QH=791) Urine Methadone Screen (IUC3LO=987) Ur Propoxyphene Screen (TFPBRL=961) Ur Barbiturates Screen (HLVHSK=041) Ur Tricyclics Screen (OBKEST=319) Ur Phencyclidine Scrn (CUTOFF=25) Ur Amphetamine Screen (PGGZWN=124) U Methamphetamines Scrn (XVCZYZ=850) U Benzodiazepines Scrn (LNXAJE=677) U Cocaine Metab Screen (SMKEPC=068) U Marijuana (THC) Screen (CUTOFF=50) Ketones (0.0-0.3) mM 09/20/19 09/20/19 Range/Units 16:45 17:52 WBC (4.23-9.07) K/mm3 RBC (4.63-6.08) M/mm3 Hgb (13.7-17.5) gm/dl Hct (40.1-51.0) % MCV (79.0-92.2) fl MCH (25.7-32.2) pg MCHC (32.2-35.5) g/dl RDW Std Deviation (35.1-43.9) fL Plt Count (163-337) K/mm3 MPV (9.4-12.3) fl Neut % (Auto) (34.0-67.9) % Lymph % (Auto) (21.8-53.1) % [place] % (Auto) (5.3-12.2) % Eos % (Auto) (0.8-7.0) Baso % (Auto) (0.1-1.2) % Neut # (Auto) (1.78-5.38) K/mm3 Lymph # (Auto) (1.32-3.57) K/mm3 [place] # (Auto) (0.30-0.82) K/mm3 Eos # (Auto) (0.04-0.54) K/mm3 Baso # (Auto) (0.01-0.08) K/mm3 Puncture Site Lt radial ABG pH 7.36 (7.35-7.45) ABG pCO2 40.0 (35.0-45.0) mmHg ABG pO2 82.0 (80.0-100.0) mmHg ABG HCO3 22.0 (22.0-26.0) meq/L ABG O2 Saturation 97.0 (96.0-97.0) % ABG Base Excess -2.6 L (-2-2.0) Raymond Test Positive A-a Gradient 18 mmHg O2 Delivery Device Room air FiO2 21.00 (21.00-100.00) % Sodium (136-145) mEq/L Potassium (3.5-5.1) mEq/L Chloride (98-107) mEq/L Carbon Dioxide (21-32) mEq/L Anion Gap (5-15) BUN (7-18) mg/dL Creatinine (0.7-1.3) mg/dL Est Cr Clr Drug Dosing mL/min Estimated GFR (MDRD) (>60) mL/min BUN/Creatinine Ratio (14-18) Glucose (74-106) mg/dL POC Glucose (70-105) mg/dL Hemoglobin A1c (4.50-6.20) % Lactic Acid (0.4-2.0) mmol/L Calcium (8.5-10.1) mg/dL Magnesium (1.8-2.4) mg/dl Total Bilirubin (0.2-1.0) mg/dL AST (15-37) U/L ALT (16-63) U/L Alkaline Phosphatase (46-116) U/L Creatine Kinase (39-308) U/L Troponin I (0.00-0.056) ng/mL Total Protein (6.4-8.2) g/dl Albumin (3.4-5.0) g/dl Globulin gm/dL Albumin/Globulin Ratio (1-2) Urine Color (Yellow) Urine Appearance (Clear) Urine pH (5.0-8.0) Ur Specific [place] (1.005-1.030) Urine Protein (Negative) Urine Glucose (UA) (Negative) Urine Ketones (Negative) Urine Occult Blood (Negative) Urine Nitrite (Negative) Urine Bilirubin (Negative) Urine Urobilinogen (0.2-1.0) Ur Leukocyte Esterase (Negative) Urine RBC (0-5) /hpf Urine WBC (0-5) /hpf Ur Squamous Epith Cells (0-5) /hpf Urine Bacteria (FEW) /hpf Urine Mucus (FEW) /hpf Urine Opiates Screen Negative (JOKTHP=216) Ur Buprenorphine Scrn Negative (CUTOFF=10) Ur Oxycodone Screen Presumptive positive H (JGN2NG=940) Urine Methadone Screen Negative (QMB2YA=752) Ur Propoxyphene Screen Negative (AFZAPW=600) Ur Barbiturates Screen Negative (VYKLUG=072) Ur Tricyclics Screen Negative (ZWAPAQ=325) Ur Phencyclidine Scrn Negative (CUTOFF=25) Ur Amphetamine Screen Negative (XOKIZI=397) U Methamphetamines Scrn Negative (EHGCAG=198) U Benzodiazepines Scrn Presumptive positive H (QNPZID=676) U Cocaine Metab Screen Negative (KTZRAS=558) U Marijuana (THC) Screen Negative (CUTOFF=50) Ketones (0.0-0.3) mM Result Diagrams: 09/20/19 15:53 09/20/19 15:53 Sepsis Event Note - Evaluation Sepsis Screening Result: No Definite Risk - Focused Exam Vital Signs: Vital Signs Temp Pulse Resp BP Pulse Ox 09/20/19 15:34 98.4 F 81 13 150/99 H 96 Capillary Refill, Detail: Less than/Equal to (</=) 2 Seconds Pulse Description: 2+ Normal Skin Exam (Focused Sepsis): Normal Turgor, [place] Date Exam was Performed: 09/20/19 Time Exam was Performed: 20:00 *Q Meaningful Use (ADM) - VTE Risk Assess *Q Each Risk Factor Represents 1 Point: Age 41 - 59 years, Abnormal Pulmonary Function (COPD), Other Risk Factor (Right BKA) Total Score 1 Point Risk Factors: 3 - Problem List (1) Insomnia SNOMED Code(s): 752218308 ICD Code: G47.00 - INSOMNIA, UNSPECIFIED Status: Acute Current Visit: Yes (2) Diabetes mellitus type 2, insulin dependent SNOMED Code(s): 559517092 ICD Code: E11.9 - TYPE 2 DIABETES MELLITUS WITHOUT COMPLICATIONS; Z79.4 - MANAGER CODE (CURRENT) USE OF INSULIN Status: Chronic Current Visit: Yes (3) Hypomagnesemia SNOMED Code(s): 607863656 ICD Code: E83.42 - HYPOMAGNESEMIA Status: Acute Current Visit: Yes (4) Nicotine dependence SNOMED Code(s): 54630628 ICD Code: F17.200 - NICOTINE DEPENDENCE, UNSPECIFIED, UNCOMPLICATED Status : Chronic Current Visit: Yes (5) Hyperglycemia SNOMED Code(s): 69363185 ICD Code: R73.9 - HYPERGLYCEMIA, UNSPECIFIED Status: Acute Priority: High Current Visit: Yes (6) Opioid dependence SNOMED Code(s): 65624890 ICD Code: F11.20 - OPIOID DEPENDENCE, UNCOMPLICATED Status: Acute Priority: High Current Visit: Yes Qualifiers: Substance use status: in withdrawal Qualified Code(s): F11.23 - Opioid dependence with withdrawal (7) Chronic back pain SNOMED Code(s): 877487030 ICD Code: M54.9 - DORSALGIA, UNSPECIFIED; G89.29 - OTHER CHRONIC PAIN Status: Chronic Priority: Medium Current Visit: No Qualifiers: Back pain location: low back pain Back pain laterality: bilateral Sciatica presence: with sciatica Sciatica laterality: bilateral sciatica Qualified Code(s): M54.42 - Lumbago with sciatica, left side; M54.41 - Lumbago with sciatica, right side; G89.29 - Other chronic pain (8) Polypharmacy SNOMED Code(s): 888993422 ICD Code: Z79.899 - OTHER MANAGER CODE (CURRENT) DRUG THERAPY Status: Chronic Priority: Medium Current Visit: Yes Problem List Initiated/Reviewed/Updated: Yes Orders Last 24hrs: Active Orders 24 hr Category Date Time Status Patient Status [ADT] Routine ADT 09/20/19 18:10 Active Blood Glucose Check, Bedside [RC] QIDACANDBED Care 09/20/19 18:34 Active EKG Documentation Completion [RC] STAT Care 09/20/19 16:06 Active Oxygen Therapy [RC] PRN Care 09/20/19 18:34 Active Peripheral IV Care [RC] Q2H Care 09/20/19 15:47 Active Pulse Oximetry [RC] CONTINUOUS Care 09/20/19 18:35 Active RT Aerosol Therapy [RC] ASDIRECTED Care 09/20/19 18:45 Active Up With Assistance [RC] BID Care 09/20/19 18:34 Active VTE/DVT Education [RC] BID Care 09/20/19 18:34 Active Vital Signs [RC] Q4H Care 09/20/19 18:34 Active [employer] Diet [DIET] Diet 09/21/19 Breakfast Active BASIC METABOLIC PANEL,BMP [CHEM] AM Lab 09/21/19 05:11 Ordered MAGNESIUM [CHEM] AM Lab 09/21/19 05:11 Ordered PHOSPHORUS [CHEM] AM Lab 09/21/19 05:11 Ordered Acetaminophen [Tylenol] Med 09/20/19 18:34 Active 650 mg PO Q4H PRN Acetaminophen/oxyCODONE [Percocet 325-5 MG] Med 09/20/19 18:34 Active 1 tab PO Q4H PRN Albuterol/Ipratropium [DuoNeb 3.0-0.5 MG/3 ML] Med 09/20/19 18:34 Active 3 ml NEB Q4H PRN Dextrose 50% in Water Med 09/20/19 18:34 Active 50 ml IVPUSH ASDIRECTED PRN Docusate Sodium [Colace] Med 09/20/19 18:34 Active 100 mg PO BID PRN Enoxaparin [Lovenox] Med 09/21/19 09:00 Active 40 mg SUBCUT DAILY Insulin Glarg,Human.Rec.Analog [LantUS] Med 09/21/19 09:00 Active 24 unit SUBCUT DAILY Insulin Lispro [HumaLOG] Med 09/20/19 22:00 Ordered See Protocol SUBCUT QIDACANDBED Morphine Med 09/20/19 18:34 Active 1 mg IVPUSH Q2H PRN Nicotine [Habitrol] Med 09/20/19 18:45 Active 14 mg TRDERM DAILY Ondansetron [Zofran] Med 09/20/19 18:34 Active 4 mg IV Q4H PRN Sodium Chloride 0.45% with KCl [1/2 NS with 20 mEq KCl] Med 09/20/19 18:45 Active 1,000 ml IV ASDIRECTED Sodium Chloride 0.9% [Normal Saline] 1,000 ml Med 09/20/19 16:15 Active IV ASDIRECTED Sodium Chloride 0.9% [Saline Flush] Med 09/20/19 15:47 Active 10 ml FLUSH ASDIRECTED PRN Temazepam [Restoril] Med 09/20/19 18:34 Active 15 mg PO BEDTIME PRN Peripheral IV Insertion Adult [OM.PC] Stat Oth 09/20/19 15:47 Ordered Resuscitation Status Routine Resus Stat 09/20/19 18:34 Ordered Medication Orders Acetaminophen (Tylenol) 650 mg PO Q4H PRN PRN Reason: Pain (Mild 1-3)/fever Albuterol/Ipratropium (Duoneb 3.0-0.5 Mg/3 Ml) 3 ml NEB Q4H PRN PRN Reason: Shortness Of Breath/wheezing Dextrose/Water (Dextrose 50% In Water) 50 ml IVPUSH ASDIRECTED PRN PRN Reason: Blood sugar <60 Docusate Sodium (Colace) 100 mg PO BID PRN PRN Reason: Constipation Enoxaparin Sodium (Lovenox) 40 mg SUBCUT DAILY [facility] Sodium Chloride (Normal Saline) 1,000 mls @ 999 mls/hr IV ASDIRECTED [facility] Last Admin: 09/20/19 16:26 Dose: 999 mls/hr Potassium Chloride/Sodium Chloride (1/2 Ns With 20 Meq Kcl) 1,000 mls @ 75 mls/ hr IV ASDIRECTED [facility] Insulin Glargine (Lantus) 24 unit SUBCUT DAILY [facility] Insulin Human Lispro (Humalog) 0 unit SUBCUT QIDACANDBED [facility]; Protocol Morphine Sulfate (Morphine) 1 mg IVPUSH Q2H PRN PRN Reason: Pain (severe 7-10) Stop: 09/21/19 18:41 Nicotine (Habitrol) 14 mg TRDERM DAILY [facility] Ondansetron HCl (Zofran) 4 mg IV Q4H PRN PRN Reason: Nausea/Vomiting Oxycodone/Acetaminophen (Percocet 325-5 Mg) 1 tab PO Q4H PRN PRN Reason: Pain (moderate 4-6) Sodium Chloride (Saline Flush) 10 ml FLUSH ASDIRECTED PRN PRN Reason: Keep Vein Open Last Admin: 09/20/19 15:55 Dose: 10 ml Temazepam (Restoril) 15 mg PO BEDTIME PRN PRN Reason: Sleep Assessment/Plan Comment:: Hyperglycemia, uncontrolled DM type II. Blood sugar is 413. CO2 normal. No ketones in urine. IV fluid resuscitation with LR running at 75ml/hr. Started on glargine 30 units subcu qhs. FSBG at meals and at night. ADA diet while in house. Reason for hyperglycemia is unknown but could be due to opioid withdrawal. Patient is without signs of infection. BMP w/ potassium and phosphorous repeated in AM. Opioid withdrawal. Pt does continue to have tremors of hands, arms. For now alert, oriented to person, place, time. No focal neural deficits. Pt will remain on continuous respiratory monitoring until sure patient O2 saturation stable. Fall precautions , seizure precautions. Acetaminophen 650mg po q6h as needed mild pain, Percocet 5/325mg po q8h as needed pain 4-6, morphine 1mg IV q4h as needed for pain 7-10/ 10. Patient has prescription for Percocet 5/325mg q4h to be filled on Sunday prescribed by PCP. This is step down from current Percocet 10/325mg. COPD. Patient is without acute exacerbation. Will receive duoneb nebulizer treatments 3mL q6h as needed for wheezing. Smoking cessation education. Hypomagnesemia. Mg level is 1.5. Will give Mag sulfate 2g IV x1. Will recheck in AM. Chronic back pain. Percocet 5/325mg po q8h as needed pain 4-6, morphine 1mg IV q4h as needed for pain 7-10/10. Patient has prescription for Percocet 5/325mg q4h to be filled on Sunday prescribed by PCP. This is step down from current Percocet 10/325mg. See note below on polypharmacy. Insomnia. Patient is on multiple benzodiazepines at home. We will give patient temazepam 15mg oral qhs as needed for insomnia but otherwise no benzos. Polypharmacy. Home medications include flexeril 5mg q8h as needed, dilaudid 4mg po q8hr as needed, Percocet 10-325mg po q4h as needed, Zanaflex 4mg po BID, diazepam 5mg po q6h as needed for anxiety, and alprazolam 1mg po TID as needed for anxiety. We will overhaul home medications. For now, patient will remain on pain control as stated above and temazepam 15mg oral qhs for insomnia, No other narcotic or benzos. Nicotine dependence. Smokes a half pack a day. Nicotine cessation discussed. Nicotine patch 14mg transdermal daily. Prophylaxis. GI prophylaxis not indicated. DVT prophylaxis with lovenox 40mg subcu q24h. COVID assessment. Patient has not traveled out of state. No fevers, chills or shortness of breath. No cough. No loss of taste. He has not been near anyone with diagnosed covid. No need for further COVID testing or precautions. Code status: Full Code Disposition: Blood sugars controlled, fluid resuscitation, monitoring opioid withdrawal. Probable discharge in 24 hours if no acute events overnight. - Mortality Measure Prognosis:: Good
[2019-09-20] MEDS: Nicotine 14 MG/24 Hr Patch TRDERM SCH (19:26)
[2019-09-20] MEDS ORDERED: Potassium Chloride 20 MEQ Tab.ER PO ONE (19:41)
[2019-09-20] MEDS ORDERED: Magnesium Sulfate/Water 2 GM in Premix Bag 1 BAG IV ONE (20:00)
[2019-09-20] MEDS: Lactated Ringers 1,000 ML IV SCH (20:00)
[2019-09-20] MEDS: Morphine 2 MG/ML SYRINGE IVPUSH PRN (20:02)
[2019-09-20] MEDS: Insulin Glarg,Human.Rec.Analog 100 Unit/ML SUBCUT SCH (21:20)
[2019-09-20] MEDS ORDERED: Insulin Lispro 100 Units/ML 3 ML Vial SUBCUT SCH (22:00)
[2019-09-21] MEDS: Morphine 2 MG/ML SYRINGE IVPUSH PRN ×3 (01:06→22:59)
[2019-09-21] MEDS: Acetaminophen/oxyCODONE 325-5 MG Tab PO PRN ×2 (04:15→16:07)
[2019-09-21] MEDS ORDERED: Insulin Glarg,Human.Rec.Analog 100 Unit/ML SUBCUT SCH (09:00)
[2019-09-21] MEDS: Enoxaparin 40 MG/0.4 ML Syringe SUBCUT SCH (09:01)
[2019-09-21] MEDS: Lactated Ringers 1,000 ML IV SCH (09:05)
[2019-09-21] MEDS: Nicotine 14 MG/24 Hr Patch TRDERM SCH (09:34)
--- NOTE | 2019-09-21 11:26 | PCM.PN ---
- General Info Date of Service: 09/21/19 Admission Dx/Problem (Free Text): Admission Diagnosis/Problem Admission Diagnosis/Problem Hyperglycemia, opioid withdrawal Subjective Update: The patient was seen by me, case discussed with Dr. Jimenez. The patient has less shaking of extremities this morning, though tremors are still present and has not had "convulsions" of muscles. He no longer has muscle spasms. He does continue to have some tingling in hands and foot which are chronic. He is now without headache. No chest pain, nausea, or diarrhea. He denies fevers, chills. He is able to eat and drink well. On discussion with nurses and evaluation with patient, it is made apparent, diabetes is not being managed well at home. When discussing w/ nurses, patient notes he will eat ice cream and then give himself 100 units of insulin. Patient watched educational video and does not have questions but continues to say his body works differently so he takes medications differently than prescribed. He also states he will take 3 valium in the morning and then none during the day even though valium is prescribed for 4x a day as needed. Functional Status: Reports: Pain Controlled, Tolerating Diet - Review of Systems General: Reports: No Symptoms Pulmonary: Denies: Shortness of Breath, Pleuritic Chest Pain, Cough, Wheezing Cardiovascular: Denies: Chest Pain, Palpitations, Lightheadedness Gastrointestinal: Denies: Abdominal Pain, Constipation, Diarrhea, Nausea Neurological: Reports: Tingling (of fingers and left foot, states it's chronic) . Denies: Dizziness, Headache Psychiatric: Reports: Anxiety. Denies: Confusion, Depression, Mood Lability - Patient Data Vitals - Most Recent: Last Vital Signs Temp 98.1 F 09/21/19 08:23 Pulse 72 09/21/19 08:23 Resp 15 09/21/19 08:23 BP 152/82 H 09/21/19 08:23 Pulse Ox 96 09/21/19 08:23 Weight - Most Recent: 209 lb 12.8 oz I&O - Last 24 Hours: Intake & Output 09/20/19 09/21/19 09/21/19 22:59 06:59 14:59 Intake Total 1130 Output Total 975 Balance 155 Lab Results Last 24 Hours: Laboratory Results - last 24 hr 09/20/19 09/20/19 09/20/19 Range/Units 15:33 15:53 15:53 WBC 5.53 (4.23-9.07) K/mm3 RBC 4.92 (4.63-6.08) M/mm3 Hgb 14.7 (13.7-17.5) gm/dl Hct 41.9 (40.1-51.0) % MCV 85.2 (79.0-92.2) fl MCH 29.9 (25.7-32.2) pg MCHC 35.1 (32.2-35.5) g/dl RDW Std Deviation 39.7 (35.1-43.9) fL Plt Count 233 (163-337) K/mm3 MPV 10.6 (9.4-12.3) fl Neut % (Auto) 50.8 (34.0-67.9) % Lymph % (Auto) 34.7 (21.8-53.1) % Rankin % (Auto) 12.3 H (5.3-12.2) % Eos % (Auto) 1.6 (0.8-7.0) Baso % (Auto) 0.4 (0.1-1.2) % Neut # (Auto) 2.81 (1.78-5.38) K/mm3 Lymph # (Auto) 1.92 (1.32-3.57) K/mm3 Rankin # (Auto) 0.68 (0.30-0.82) K/mm3 Eos # (Auto) 0.09 (0.04-0.54) K/mm3 Baso # (Auto) 0.02 (0.01-0.08) K/mm3 Puncture Site ABG pH (7.35-7.45) ABG pCO2 (35.0-45.0) mmHg ABG pO2 (80.0-100.0) mmHg ABG HCO3 (22.0-26.0) meq/L ABG O2 Saturation (96.0-97.0) % ABG Base Excess (-2-2.0) Raymond Test A-a Gradient mmHg O2 Delivery Device FiO2 (21.00-100.00) % Sodium 133 L D (136-145) mEq/L Potassium 3.5 (3.5-5.1) mEq/L Chloride 98 (98-107) mEq/L Carbon Dioxide 25 (21-32) mEq/L Anion Gap 13.5 (5-15) BUN 9 (7-18) mg/dL Creatinine 0.9 (0.7-1.3) mg/dL Est Cr Clr Drug Dosing 95.76 mL/min Estimated GFR (MDRD) > 60 (>60) mL/min BUN/Creatinine Ratio 10.0 L (14-18) Glucose 413 H (74-106) mg/dL POC Glucose 376 H (70-105) mg/dL Hemoglobin A1c (4.50-6.20) % Lactic Acid (0.4-2.0) mmol/L Calcium 8.5 (8.5-10.1) mg/dL Phosphorus (2.6-4.7) mg/dL Magnesium 1.5 L (1.8-2.4) mg/dl Total Bilirubin 0.3 (0.2-1.0) mg/dL AST 18 (15-37) U/L ALT 39 (16-63) U/L Alkaline Phosphatase 68 (46-116) U/L Creatine Kinase (39-308) U/L Troponin I (0.00-0.056) ng/mL Total Protein 6.8 (6.4-8.2) g/dl Albumin 3.3 L (3.4-5.0) g/dl Globulin 3.5 gm/dL Albumin/Globulin Ratio 0.9 L (1-2) Urine Color (Yellow) Urine Appearance (Clear) Urine pH (5.0-8.0) Ur Specific [place] (1.005-1.030) Urine Protein (Negative) Urine Glucose (UA) (Negative) Urine Ketones (Negative) Urine Occult Blood (Negative) Urine Nitrite (Negative) Urine Bilirubin (Negative) Urine Urobilinogen (0.2-1.0) Ur Leukocyte Esterase (Negative) Urine RBC (0-5) /hpf Urine WBC (0-5) /hpf Ur Squamous Epith Cells (0-5) /hpf Urine Bacteria (FEW) /hpf Urine Mucus (FEW) /hpf Urine Opiates Screen (REWFSD=801) Ur Buprenorphine Scrn (CUTOFF=10) Ur Oxycodone Screen (ZCX8RU=479) Urine Methadone Screen (JJT7IO=448) Ur Propoxyphene Screen (JRXUDD=220) Ur Barbiturates Screen (IXRBYN=341) Ur Tricyclics Screen (RTQGTB=026) Ur Phencyclidine Scrn (CUTOFF=25) Ur Amphetamine Screen (DYTWZF=757) U Methamphetamines Scrn (WZVSUA=850) U Benzodiazepines Scrn (WEYHFT=934) U Cocaine Metab Screen (UJRHVY=747) U Marijuana (THC) Screen (CUTOFF=50) Ketones (0.0-0.3) mM 09/20/19 09/20/19 09/20/19 Range/Units 15:53 15:53 15:53 WBC (4.23-9.07) K/mm3 RBC (4.63-6.08) M/mm3 Hgb (13.7-17.5) gm/dl Hct (40.1-51.0) % MCV (79.0-92.2) fl MCH (25.7-32.2) pg MCHC (32.2-35.5) g/dl RDW Std Deviation (35.1-43.9) fL Plt Count (163-337) K/mm3 MPV (9.4-12.3) fl Neut % (Auto) (34.0-67.9) % Lymph % (Auto) (21.8-53.1) % Rankin % (Auto) (5.3-12.2) % Eos % (Auto) (0.8-7.0) Baso % (Auto) (0.1-1.2) % Neut # (Auto) (1.78-5.38) K/mm3 Lymph # (Auto) (1.32-3.57) K/mm3 Rankin # (Auto) (0.30-0.82) K/mm3 Eos # (Auto) (0.04-0.54) K/mm3 Baso # (Auto) (0.01-0.08) K/mm3 Puncture Site ABG pH (7.35-7.45) ABG pCO2 (35.0-45.0) mmHg ABG pO2 (80.0-100.0) mmHg ABG HCO3 (22.0-26.0) meq/L ABG O2 Saturation (96.0-97.0) % ABG Base Excess (-2-2.0) Raymond Test A-a Gradient mmHg O2 Delivery Device FiO2 (21.00-100.00) % Sodium (136-145) mEq/L Potassium (3.5-5.1) mEq/L Chloride (98-107) mEq/L Carbon Dioxide (21-32) mEq/L Anion Gap (5-15) BUN (7-18) mg/dL Creatinine (0.7-1.3) mg/dL Est Cr Clr Drug Dosing mL/min Estimated GFR (MDRD) (>60) mL/min BUN/Creatinine Ratio (14-18) Glucose (74-106) mg/dL POC Glucose (70-105) mg/dL Hemoglobin A1c 8.40 H (4.50-6.20) % Lactic Acid (0.4-2.0) mmol/L Calcium (8.5-10.1) mg/dL Phosphorus (2.6-4.7) mg/dL Magnesium (1.8-2.4) mg/dl Total Bilirubin (0.2-1.0) mg/dL AST (15-37) U/L ALT (16-63) U/L Alkaline Phosphatase (46-116) U/L Creatine Kinase (39-308) U/L Troponin I < 0.017 (0.00-0.056) ng/mL Total Protein (6.4-8.2) g/dl Albumin (3.4-5.0) g/dl Globulin gm/dL Albumin/Globulin Ratio (1-2) Urine Color (Yellow) Urine Appearance (Clear) Urine pH (5.0-8.0) Ur Specific [place] (1.005-1.030) Urine Protein (Negative) Urine Glucose (UA) (Negative) Urine Ketones (Negative) Urine Occult Blood (Negative) Urine Nitrite (Negative) Urine Bilirubin (Negative) Urine Urobilinogen (0.2-1.0) Ur Leukocyte Esterase (Negative) Urine RBC (0-5) /hpf Urine WBC (0-5) /hpf Ur Squamous Epith Cells (0-5) /hpf Urine Bacteria (FEW) /hpf Urine Mucus (FEW) /hpf Urine Opiates Screen (NZWSHZ=679) Ur Buprenorphine Scrn (CUTOFF=10) Ur Oxycodone Screen (RAI5DT=420) Urine Methadone Screen (HLH7NU=294) Ur Propoxyphene Screen (EUJTMZ=394) Ur Barbiturates Screen (FKAOLJ=529) Ur Tricyclics Screen (GEEGZQ=156) Ur Phencyclidine Scrn (CUTOFF=25) Ur Amphetamine Screen (UOPTDU=435) U Methamphetamines Scrn (UGDWEN=381) U Benzodiazepines Scrn (CDXJHR=750) U Cocaine Metab Screen (OZCJTG=850) U Marijuana (THC) Screen (CUTOFF=50) Ketones 0.14 (0.0-0.3) mM 09/20/19 09/20/19 09/20/19 Range/Units 15:53 16:03 16:29 WBC (4.23-9.07) K/mm3 RBC (4.63-6.08) M/mm3 Hgb (13.7-17.5) gm/dl Hct (40.1-51.0) % MCV (79.0-92.2) fl MCH (25.7-32.2) pg MCHC (32.2-35.5) g/dl RDW Std Deviation (35.1-43.9) fL Plt Count (163-337) K/mm3 MPV (9.4-12.3) fl Neut % (Auto) (34.0-67.9) % Lymph % (Auto) (21.8-53.1) % Rankin % (Auto) (5.3-12.2) % Eos % (Auto) (0.8-7.0) Baso % (Auto) (0.1-1.2) % Neut # (Auto) (1.78-5.38) K/mm3 Lymph # (Auto) (1.32-3.57) K/mm3 Rankin # (Auto) (0.30-0.82) K/mm3 Eos # (Auto) (0.04-0.54) K/mm3 Baso # (Auto) (0.01-0.08) K/mm3 Puncture Site ABG pH (7.35-7.45) ABG pCO2 (35.0-45.0) mmHg ABG pO2 (80.0-100.0) mmHg ABG HCO3 (22.0-26.0) meq/L ABG O2 Saturation (96.0-97.0) % ABG Base Excess (-2-2.0) Raymond Test A-a Gradient mmHg O2 Delivery Device FiO2 (21.00-100.00) % Sodium (136-145) mEq/L Potassium (3.5-5.1) mEq/L Chloride (98-107) mEq/L Carbon Dioxide (21-32) mEq/L Anion Gap (5-15) BUN (7-18) mg/dL Creatinine (0.7-1.3) mg/dL Est Cr Clr Drug Dosing mL/min Estimated GFR (MDRD) (>60) mL/min BUN/Creatinine Ratio (14-18) Glucose (74-106) mg/dL POC Glucose (70-105) mg/dL Hemoglobin A1c (4.50-6.20) % Lactic Acid 3.5 H* (0.4-2.0) mmol/L Calcium (8.5-10.1) mg/dL Phosphorus (2.6-4.7) mg/dL Magnesium (1.8-2.4) mg/dl Total Bilirubin (0.2-1.0) mg/dL AST (15-37) U/L ALT (16-63) U/L Alkaline Phosphatase (46-116) U/L Creatine Kinase 54 (39-308) U/L Troponin I (0.00-0.056) ng/mL Total Protein (6.4-8.2) g/dl Albumin (3.4-5.0) g/dl Globulin gm/dL Albumin/Globulin Ratio (1-2) Urine Color Yellow (Yellow) Urine Appearance Clear (Clear) Urine pH 6.5 (5.0-8.0) Ur Specific [place] 1.015 (1.005-1.030) Urine Protein Negative (Negative) Urine Glucose (UA) 2+ H (Negative) Urine Ketones Negative (Negative) Urine Occult Blood Negative (Negative) Urine Nitrite Negative (Negative) Urine Bilirubin Negative (Negative) Urine Urobilinogen 0.2 (0.2-1.0) Ur Leukocyte Esterase Negative (Negative) Urine RBC 0-5 (0-5) /hpf Urine WBC 0-5 (0-5) /hpf Ur Squamous Epith Cells 0-5 (0-5) /hpf Urine Bacteria Occasional (FEW) /hpf Urine Mucus Not seen (FEW) /hpf Urine Opiates Screen (QCUAFP=275) Ur Buprenorphine Scrn (CUTOFF=10) Ur Oxycodone Screen (BLI4MP=263) Urine Methadone Screen (RPS1YH=926) Ur Propoxyphene Screen (BJZTKW=218) Ur Barbiturates Screen (TTUOCN=601) Ur Tricyclics Screen (DVBDCH=211) Ur Phencyclidine Scrn (CUTOFF=25) Ur Amphetamine Screen (RPPKXL=299) U Methamphetamines Scrn (NZMKQK=946) U Benzodiazepines Scrn (SDKKLH=905) U Cocaine Metab Screen (GMVNAN=627) U Marijuana (THC) Screen (CUTOFF=50) Ketones (0.0-0.3) mM 09/20/19 09/20/19 09/20/19 Range/Units 16:45 17:52 19:45 WBC (4.23-9.07) K/mm3 RBC (4.63-6.08) M/mm3 Hgb (13.7-17.5) gm/dl Hct (40.1-51.0) % MCV (79.0-92.2) fl MCH (25.7-32.2) pg MCHC (32.2-35.5) g/dl RDW Std Deviation (35.1-43.9) fL Plt Count (163-337) K/mm3 MPV (9.4-12.3) fl Neut % (Auto) (34.0-67.9) % Lymph % (Auto) (21.8-53.1) % [place] % (Auto) (5.3-12.2) % Eos % (Auto) (0.8-7.0) Baso % (Auto) (0.1-1.2) % Neut # (Auto) (1.78-5.38) K/mm3 Lymph # (Auto) (1.32-3.57) K/mm3 [place] # (Auto) (0.30-0.82) K/mm3 Eos # (Auto) (0.04-0.54) K/mm3 Baso # (Auto) (0.01-0.08) K/mm3 Puncture Site Lt radial ABG pH 7.36 (7.35-7.45) ABG pCO2 40.0 (35.0-45.0) mmHg ABG pO2 82.0 (80.0-100.0) mmHg ABG HCO3 22.0 (22.0-26.0) meq/L ABG O2 Saturation 97.0 (96.0-97.0) % ABG Base Excess -2.6 L (-2-2.0) Raymond Test Positive A-a Gradient 18 mmHg O2 Delivery Device Room air FiO2 21.00 (21.00-100.00) % Sodium (136-145) mEq/L Potassium (3.5-5.1) mEq/L Chloride (98-107) mEq/L Carbon Dioxide (21-32) mEq/L Anion Gap (5-15) BUN (7-18) mg/dL Creatinine (0.7-1.3) mg/dL Est Cr Clr Drug Dosing mL/min Estimated GFR (MDRD) (>60) mL/min BUN/Creatinine Ratio (14-18) Glucose (74-106) mg/dL POC Glucose 172 H (70-105) mg/dL Hemoglobin A1c (4.50-6.20) % Lactic Acid (0.4-2.0) mmol/L Calcium (8.5-10.1) mg/dL Phosphorus (2.6-4.7) mg/dL Magnesium (1.8-2.4) mg/dl Total Bilirubin (0.2-1.0) mg/dL AST (15-37) U/L ALT (16-63) U/L Alkaline Phosphatase (46-116) U/L Creatine Kinase (39-308) U/L Troponin I (0.00-0.056) ng/mL Total Protein (6.4-8.2) g/dl Albumin (3.4-5.0) g/dl Globulin gm/dL Albumin/Globulin Ratio (1-2) Urine Color (Yellow) Urine Appearance (Clear) Urine pH (5.0-8.0) Ur Specific [place] (1.005-1.030) Urine Protein (Negative) Urine Glucose (UA) (Negative) Urine Ketones (Negative) Urine Occult Blood (Negative) Urine Nitrite (Negative) Urine Bilirubin (Negative) Urine Urobilinogen (0.2-1.0) Ur Leukocyte Esterase (Negative) Urine RBC (0-5) /hpf Urine WBC (0-5) /hpf Ur Squamous Epith Cells (0-5) /hpf Urine Bacteria (FEW) /hpf Urine Mucus (FEW) /hpf Urine Opiates Screen Negative (YZUDAP=678) Ur Buprenorphine Scrn Negative (CUTOFF=10) Ur Oxycodone Screen Presumptive positive H (DTL0FZ=911) Urine Methadone Screen Negative (TYC9RT=106) Ur Propoxyphene Screen Negative (WRGOKP=596) Ur Barbiturates Screen Negative (YLUYCB=108) Ur Tricyclics Screen Negative (FNFDVC=922) Ur Phencyclidine Scrn Negative (CUTOFF=25) Ur Amphetamine Screen Negative (DIXAWK=275) U Methamphetamines Scrn Negative (YVUNAK=720) U Benzodiazepines Scrn Presumptive positive H (GLAHSJ=370) U Cocaine Metab Screen Negative (WZDNDX=905) U Marijuana (THC) Screen Negative (CUTOFF=50) Ketones (0.0-0.3) mM 09/21/19 09/21/19 09/21/19 Range/Units 01:05 03:37 03:37 WBC (4.23-9.07) K/mm3 RBC (4.63-6.08) M/mm3 Hgb (13.7-17.5) gm/dl Hct (40.1-51.0) % MCV (79.0-92.2) fl MCH (25.7-32.2) pg MCHC (32.2-35.5) g/dl RDW Std Deviation (35.1-43.9) fL Plt Count (163-337) K/mm3 MPV (9.4-12.3) fl Neut % (Auto) (34.0-67.9) % Lymph % (Auto) (21.8-53.1) % [place] % (Auto) (5.3-12.2) % Eos % (Auto) (0.8-7.0) Baso % (Auto) (0.1-1.2) % Neut # (Auto) (1.78-5.38) K/mm3 Lymph # (Auto) (1.32-3.57) K/mm3 [place] # (Auto) (0.30-0.82) K/mm3 Eos # (Auto) (0.04-0.54) K/mm3 Baso # (Auto) (0.01-0.08) K/mm3 Puncture Site ABG pH (7.35-7.45) ABG pCO2 (35.0-45.0) mmHg ABG pO2 (80.0-100.0) mmHg ABG HCO3 (22.0-26.0) meq/L ABG O2 Saturation (96.0-97.0) % ABG Base Excess (-2-2.0) Raymond Test A-a Gradient mmHg O2 Delivery Device FiO2 (21.00-100.00) % Sodium 140 (136-145) mEq/L Potassium 4.1 (3.5-5.1) mEq/L Chloride 107 (98-107) mEq/L Carbon Dioxide 25 (21-32) mEq/L Anion Gap 12.1 (5-15) BUN 8 (7-18) mg/dL Creatinine 0.8 (0.7-1.3) mg/dL Est Cr Clr Drug Dosing 107.73 mL/min Estimated GFR (MDRD) > 60 (>60) mL/min BUN/Creatinine Ratio 10.0 L (14-18) Glucose 125 H (74-106) mg/dL POC Glucose 148 H (70-105) mg/dL Hemoglobin A1c (4.50-6.20) % Lactic Acid 1.3 (0.4-2.0) mmol/L Calcium 8.6 (8.5-10.1) mg/dL Phosphorus 3.2 (2.6-4.7) mg/dL Magnesium 2.3 (1.8-2.4) mg/dl Total Bilirubin (0.2-1.0) mg/dL AST (15-37) U/L ALT (16-63) U/L Alkaline Phosphatase (46-116) U/L Creatine Kinase (39-308) U/L Troponin I (0.00-0.056) ng/mL Total Protein (6.4-8.2) g/dl Albumin (3.4-5.0) g/dl Globulin gm/dL Albumin/Globulin Ratio (1-2) Urine Color (Yellow) Urine Appearance (Clear) Urine pH (5.0-8.0) Ur Specific [place] (1.005-1.030) Urine Protein (Negative) Urine Glucose (UA) (Negative) Urine Ketones (Negative) Urine Occult Blood (Negative) Urine Nitrite (Negative) Urine Bilirubin (Negative) Urine Urobilinogen (0.2-1.0) Ur Leukocyte Esterase (Negative) Urine RBC (0-5) /hpf Urine WBC (0-5) /hpf Ur Squamous Epith Cells (0-5) /hpf Urine Bacteria (FEW) /hpf Urine Mucus (FEW) /hpf Urine Opiates Screen (BQQCTT=063) Ur Buprenorphine Scrn (CUTOFF=10) Ur Oxycodone Screen (HBR2MM=767) Urine Methadone Screen (ABL7DZ=409) Ur Propoxyphene Screen (HOLBIV=786) Ur Barbiturates Screen (CTAXQF=712) Ur Tricyclics Screen (IKVVDH=897) Ur Phencyclidine Scrn (CUTOFF=25) Ur Amphetamine Screen (XMCTJU=660) U Methamphetamines Scrn (RJRMCR=355) U Benzodiazepines Scrn (LFHGAD=982) U Cocaine Metab Screen (MNDNFG=371) U Marijuana (THC) Screen (CUTOFF=50) Ketones (0.0-0.3) mM 09/21/19 Range/Units 06:58 WBC (4.23-9.07) K/mm3 RBC (4.63-6.08) M/mm3 Hgb (13.7-17.5) gm/dl Hct (40.1-51.0) % MCV (79.0-92.2) fl MCH (25.7-32.2) pg MCHC (32.2-35.5) g/dl RDW Std Deviation (35.1-43.9) fL Plt Count (163-337) K/mm3 MPV (9.4-12.3) fl Neut % (Auto) (34.0-67.9) % Lymph % (Auto) (21.8-53.1) % [place] % (Auto) (5.3-12.2) % Eos % (Auto) (0.8-7.0) Baso % (Auto) (0.1-1.2) % Neut # (Auto) (1.78-5.38) K/mm3 Lymph # (Auto) (1.32-3.57) K/mm3 [place] # (Auto) (0.30-0.82) K/mm3 Eos # (Auto) (0.04-0.54) K/mm3 Baso # (Auto) (0.01-0.08) K/mm3 Puncture Site ABG pH (7.35-7.45) ABG pCO2 (35.0-45.0) mmHg ABG pO2 (80.0-100.0) mmHg ABG HCO3 (22.0-26.0) meq/L ABG O2 Saturation (96.0-97.0) % ABG Base Excess (-2-2.0) Raymond Test A-a Gradient mmHg O2 Delivery Device FiO2 (21.00-100.00) % Sodium (136-145) mEq/L Potassium (3.5-5.1) mEq/L Chloride (98-107) mEq/L Carbon Dioxide (21-32) mEq/L Anion Gap (5-15) BUN (7-18) mg/dL Creatinine (0.7-1.3) mg/dL Est Cr Clr Drug Dosing mL/min Estimated GFR (MDRD) (>60) mL/min BUN/Creatinine Ratio (14-18) Glucose (74-106) mg/dL POC Glucose 92 (70-105) mg/dL Hemoglobin A1c (4.50-6.20) % Lactic Acid (0.4-2.0) mmol/L Calcium (8.5-10.1) mg/dL Phosphorus (2.6-4.7) mg/dL Magnesium (1.8-2.4) mg/dl Total Bilirubin (0.2-1.0) mg/dL AST (15-37) U/L ALT (16-63) U/L Alkaline Phosphatase (46-116) U/L Creatine Kinase (39-308) U/L Troponin I (0.00-0.056) ng/mL Total Protein (6.4-8.2) g/dl Albumin (3.4-5.0) g/dl Globulin gm/dL Albumin/Globulin Ratio (1-2) Urine Color (Yellow) Urine Appearance (Clear) Urine pH (5.0-8.0) Ur Specific [place] (1.005-1.030) Urine Protein (Negative) Urine Glucose (UA) (Negative) Urine Ketones (Negative) Urine Occult Blood (Negative) Urine Nitrite (Negative) Urine Bilirubin (Negative) Urine Urobilinogen (0.2-1.0) Ur Leukocyte Esterase (Negative) Urine RBC (0-5) /hpf Urine WBC (0-5) /hpf Ur Squamous Epith Cells (0-5) /hpf Urine Bacteria (FEW) /hpf Urine Mucus (FEW) /hpf Urine Opiates Screen (KXCNPM=486) Ur Buprenorphine Scrn (CUTOFF=10) Ur Oxycodone Screen (FVW6LQ=386) Urine Methadone Screen (WTQ2AG=778) Ur Propoxyphene Screen (AYYNTS=483) Ur Barbiturates Screen (RNDAKM=043) Ur Tricyclics Screen (YZCANW=939) Ur Phencyclidine Scrn (CUTOFF=25) Ur Amphetamine Screen (GMDOOT=761) U Methamphetamines Scrn (XZZFDZ=781) U Benzodiazepines Scrn (QQOTOV=886) U Cocaine Metab Screen (BBIHKN=575) U Marijuana (THC) Screen (CUTOFF=50) Ketones (0.0-0.3) mM Med Orders - Current: Current Medications Acetaminophen (Tylenol) 650 mg PO Q4H PRN PRN Reason: Pain (Mild 1-3)/fever Albuterol/Ipratropium (Duoneb 3.0-0.5 Mg/3 Ml) 3 ml NEB Q4H PRN PRN Reason: Shortness Of Breath/wheezing Dextrose/Water (Dextrose 50% In Water) 50 ml IVPUSH ASDIRECTED PRN PRN Reason: Blood sugar <60 Docusate Sodium (Colace) 100 mg PO BID PRN PRN Reason: Constipation Enoxaparin Sodium (Lovenox) 40 mg SUBCUT DAILY [facility] Last Admin: 09/21/19 09:01 Dose: 40 mg Insulin Glargine (Lantus) 30 unit SUBCUT DAILY@2200 [facility] Last Admin: 09/20/19 21:20 Dose: 30 units Miscellaneous Information (Remove Patch) 1 ea TRDERM DAILY [facility] Last Admin: 09/21/19 09:33 Dose: Not Given Morphine Sulfate (Morphine) 1 mg IVPUSH Q4H PRN PRN Reason: Pain (severe 7-10) Last Admin: 09/21/19 01:06 Dose: 1 mg Nicotine (Habitrol) 14 mg TRDERM DAILY [facility] Last Admin: 09/21/19 09:34 Dose: Not Given Ondansetron HCl (Zofran) 4 mg IV Q4H PRN PRN Reason: Nausea/Vomiting Last Admin: 09/21/19 01:06 Dose: 4 mg Oxycodone/Acetaminophen (Percocet 325-5 Mg) 1 tab PO Q8H PRN PRN Reason: Pain (moderate 4-6) Last Admin: 09/21/19 04:15 Dose: 1 tab Sodium Chloride (Saline Flush) 10 ml FLUSH ASDIRECTED PRN PRN Reason: Keep Vein Open Last Admin: 09/20/19 15:55 Dose: 10 ml Temazepam (Restoril) 15 mg PO BEDTIME PRN PRN Reason: Sleep Last Admin: 09/20/19 21:22 Dose: 15 mg Discontinued Medications Cyclobenzaprine HCl (Flexeril) 10 mg PO ONETIME ONE Stop: 09/20/19 17:09 Last Admin: 09/20/19 17:32 Dose: 10 mg Diazepam (Valium) 2 mg IVPUSH ONETIME ONE Stop: 09/20/19 16:58 Last Admin: 09/20/19 19:11 Dose: Not Given Hydromorphone HCl (Dilaudid) 0.5 mg IVPUSH ONETIME ONE Stop: 09/20/19 16:44 Last Admin: 09/20/19 16:50 Dose: 0.5 mg Sodium Chloride (Normal Saline) 1,000 mls @ 999 mls/hr IV ASDIRECTED [facility] Last Admin: 09/20/19 16:26 Dose: 999 mls/hr Potassium Chloride/Sodium Chloride (1/2 Ns With 20 Meq Kcl) 1,000 mls @ 75 mls/ hr IV ASDIRECTED [facility] Last Admin: 09/20/19 19:24 Dose: 75 mls/hr Magnesium Sulfate 2 gm/ Premix 50 mls @ 25 mls/hr IV ONETIME ONE Stop: 09/20/19 21:59 Last Admin: 09/20/19 21:18 Dose: 25 mls/hr Insulin Glargine (Lantus) 24 unit SUBCUT DAILY [facility] Insulin Human Lispro (Humalog) 0 unit SUBCUT QIDACANDBED [facility]; Protocol Morphine Sulfate (Morphine) 1 mg IVPUSH Q2H PRN PRN Reason: Pain (severe 7-10) Stop: 09/21/19 18:41 Oxycodone/Acetaminophen (Percocet 325-5 Mg) 1 tab PO Q4H PRN PRN Reason: Pain (moderate 4-6) Potassium Chloride (Klor-Con M20) 40 meq PO ONETIME ONE Stop: 09/20/19 19:42 Last Admin: 09/20/19 20:03 Dose: 40 meq - Exam General: Alert, Oriented, Cooperative, No Acute Distress, Other (makes eye contact) HEENT: Pupils Equal, Pupils Reactive Lungs: Clear to Auscultation, Normal Respiratory Effort. No: Crackles, Rales Cardiovascular: Regular Rate, Regular Rhythm, No Murmurs Extremities: Normal Inspection, No Pedal Edema, Normal Capillary Refill, Other ( fine tremors of fingers/hands at rest) Peripheral Pulses: 2+: Posterior Tibial (L) Psy/Mental Status: Alert, Normal Affect, Normal Mood, Other (less anxious than yesterday) Sepsis Event Note - Evaluation Sepsis Screening Result: No Definite Risk - Focused Exam Vital Signs: Vital Signs Temp Pulse Resp BP Pulse Ox 09/21/19 08:23 98.1 F 72 15 152/82 H 96 09/21/19 04:06 98.2 F 72 12 98 09/21/19 01:15 98.2 F 74 14 153/89 H 99 Date Exam was Performed: 09/21/19 Time Exam was Performed: 11:16 - Problem List & Annotations (1) Insomnia SNOMED Code(s): 236384383 Code(s): G47.00 - INSOMNIA, UNSPECIFIED Status: Acute Current Visit: Yes (2) Diabetes mellitus type 2, insulin dependent SNOMED Code(s): 368832509 Code(s): E11.9 - TYPE 2 DIABETES MELLITUS WITHOUT COMPLICATIONS; Z79.4 - PRISON (CURRENT) USE OF INSULIN Status: Chronic Current Visit: Yes (3) Hypomagnesemia SNOMED Code(s): 894982450 Code(s): E83.42 - HYPOMAGNESEMIA Status: Acute Current Visit: Yes (4) Nicotine dependence SNOMED Code(s): 65023627 Code(s): F17.200 - NICOTINE DEPENDENCE, UNSPECIFIED, UNCOMPLICATED Status: Chronic Current Visit: Yes (5) Hyperglycemia SNOMED Code(s): 24465064 Code(s): R73.9 - HYPERGLYCEMIA, UNSPECIFIED Status: Acute Priority: High Current Visit: Yes (6) Opioid dependence SNOMED Code(s): 12854202 Code(s): F11.20 - OPIOID DEPENDENCE, UNCOMPLICATED Status: Acute Priority : High Current Visit: Yes Qualifiers: Substance use status: in withdrawal Qualified Code(s): F11.23 - Opioid dependence with withdrawal (7) Chronic back pain SNOMED Code(s): 393769014 Code(s): M54.9 - DORSALGIA, UNSPECIFIED; G89.29 - OTHER CHRONIC PAIN Status : Chronic Priority: Medium Current Visit: No Qualifiers: Back pain location: low back pain Back pain laterality: bilateral Sciatica presence: with sciatica Sciatica laterality: bilateral sciatica Qualified Code(s): M54.42 - Lumbago with sciatica, left side; M54.41 - Lumbago with sciatica, right side; G89.29 - Other chronic pain (8) Polypharmacy SNOMED Code(s): 170133370 Code(s): Z79.899 - OTHER PRISON (CURRENT) DRUG THERAPY Status: Chronic Priority: Medium Current Visit: Yes (9) Hypertension SNOMED Code(s): 13405810 Code(s): I10 - ESSENTIAL (PRIMARY) HYPERTENSION Status: Acute Current Visit: Yes Qualifiers: Hypertension type: essential hypertension Qualified Code(s): I10 - Essential (primary) hypertension - Problem List Review Problem List Initiated/Reviewed/Updated: Yes - My Orders Last 24 Hours: My Active Orders 09/20/19 18:34 Blood Glucose Check, Bedside [RC] QIDACANDBED Oxygen Therapy [RC] PRN Up With Assistance [RC] BID VTE/DVT Education [RC] DAILY Vital Signs [RC] Q4HR Acetaminophen [Tylenol] 650 mg PO Q4H PRN Albuterol/Ipratropium [DuoNeb 3.0-0.5 MG/3 ML] 3 ml NEB Q4H PRN Dextrose 50% in Water 50 ml IVPUSH ASDIRECTED PRN Docusate Sodium [Colace] 100 mg PO BID PRN Ondansetron [Zofran] 4 mg IV Q4H PRN Temazepam [Restoril] 15 mg PO BEDTIME PRN Resuscitation Status Routine 09/20/19 18:35 Pulse Oximetry [RC] CONTINUOUS 09/20/19 18:45 RT Aerosol Therapy [RC] ASDIRECTED Nicotine [Habitrol] 14 mg TRDERM DAILY 09/20/19 19:34 Acetaminophen/oxyCODONE [Percocet 325-5 MG] 1 tab PO Q8H PRN 09/20/19 19:35 Morphine 1 mg IVPUSH Q4H PRN 09/20/19 19:45 Lactated Ringers [Ringers, Lactated] 1,000 ml IV ASDIRECTED 09/20/19 22:00 Insulin Glarg,Human.Rec.Analog [LantUS] 30 unit SUBCUT DAILY@2200 09/21/19 08:02 Diabetes Education [RC] DAILY Consult to Diabetic Nurse Specialist [CONS] Routine 09/21/19 09:00 Enoxaparin [Lovenox] 40 mg SUBCUT DAILY Remove Patch 1 ea TRDERM DAILY 09/21/19 21:00 Losartan [Cozaar] 50 mg PO BEDTIME 09/21/19 Breakfast [employer] Diet [DIET] - Plan Plan:: Hyperglycemia, uncontrolled DM type II. Patient has been noncompliant with diabetic diet and insulin management at home. Blood sugar this morning between 91-128. CO2 normal. Electrolytes normal. Continue glargine 30 units subcu qhs. FSBG at meals and at night. ADA diet. Daily diabetes education. Consult placed for diabetic nurse to see patient in the AM. Opioid withdrawal. Pt received morphine 1mg IV at 1AM and Percocet 5/325mg at 4AM for back pain. Pain is controlled and tremors of hands/body are less. Pt alert, oriented to person, place, time. No focal neural deficits. Fall precautions, seizure precautions. Acetaminophen 650mg po q6h as needed mild pain, Percocet 5/325mg po q8h as needed pain 4-6, morphine 1mg IV q4h as needed for pain 7-10/10. Patient has prescription for Percocet 5/325mg q4h to be filled on Sunday prescribed by PCP. This is step down from current Percocet 10/325mg. Medication noncompliance. Patient not safe for discharge as he admits to not taking medications as prescribed and needs consult with diabetic nurse. Consult placed for diabetic nurse to see patient tomorrow. Will continue to discuss changes in medication, correct way to take medications , polypharmacy, side effects. We will also be discontinuing some home medications on discharge which will make medication schedule easier to follow. COPD. Patient is without acute exacerbation. Will receive duoneb nebulizer treatments 3mL q6h as needed for wheezing. Smoking cessation education. Hypomagnesemia- resolved Mg level is 2.1 this morning, up from 1.5 after supplementation. Chronic back pain. Percocet 5/325mg po q8h as needed pain 4-6, morphine 1mg IV q4h as needed for pain 7-10/10. Patient has prescription for Percocet 5/325mg q4h to be filled on Sunday prescribed by PCP. This is step down from current Percocet 10/325mg. See note below on polypharmacy. Insomnia. Patient is on multiple benzodiazepines at home. We will give patient temazepam 15mg oral qhs as needed for insomnia but otherwise no benzos. Hypertension. BP max 153/89, minimum 96/75. Pt not on antihypertensives at home. Will continue to monitor. Polypharmacy. Home medications include Flexeril 5mg q8h as needed, dilaudid 4mg po q8hr as needed, Percocet 10-325mg po q4h as needed, Zanaflex 4mg po BID, diazepam 5mg po q6h as needed for anxiety, and alprazolam 1mg po TID as needed for anxiety. We will overhaul home medications. For now, patient will remain on pain control as stated above and temazepam 15mg oral qhs for insomnia, No other narcotic or benzos. Nicotine dependence. Smokes a half pack a day. Nicotine cessation discussed. Nicotine patch 14mg transdermal daily. Prophylaxis. GI prophylaxis not indicated. DVT prophylaxis with lovenox 40mg subcu q24h. COVID assessment. Patient has not traveled out of state. No fevers, chills or shortness of breath. No cough. No loss of taste. He has not been near anyone with diagnosed covid. No need for further COVID testing or precautions. Code status: Full Code Disposition: Blood sugars controlled, monitoring opioid withdrawal. Long discussion today about medication noncompliance. Patient to be discharged tomorrow after discussion again about medication compliance and after consultation with diabetic nurse. Not safe to discharge prior to diabetes education and consult.
[2019-09-21] MEDS ORDERED: Losartan 25 MG Tab PO SCH (21:00)
[2019-09-21] MEDS: Insulin Glarg,Human.Rec.Analog 100 Unit/ML SUBCUT SCH (22:56)
[2019-09-22] MEDS: Acetaminophen/oxyCODONE 325-5 MG Tab PO PRN ×2 (00:46→09:30)
[2019-09-22] MEDS: Morphine 2 MG/ML SYRINGE IVPUSH PRN ×2 (06:23→12:01)
[2019-09-22] MEDS: Enoxaparin 40 MG/0.4 ML Syringe SUBCUT SCH (08:41)
[2019-09-22] MEDS: Nicotine 14 MG/24 Hr Patch TRDERM SCH (08:41)
[2019-09-22 10:40] VITALS: PULSE 71
[2019-09-22 10:41] VITALS: BP 138/92
--- NOTE | 2019-09-22 15:08 | PCM.DCSUM1 ---
Discharge Summary - Hospital Course HPI Initial Comments: The patient is a 54 year old male, PCP Natalya Wiseman APRN, with a past medical history of diabetes mellitus type II, chronic back pain with chronic opioid use , peripheral neuropathy, and PTSD. The patient presented to the emergency room after experiencing body shakes, muscle spasms, and head pounding for past 2 days. Since , the patient states body shaking has been constant. He has fine tremors of hands but just at rest, whole arm with start shaking. He does not lose consciousness. He has not fallen. His blood sugars have been in the 300s for past 2 days as well and this morning, his blood sugar was 400 so he took 80 units of Lantus. Blood sugar was still elevated at noon so he took another 40 units of Lantus. He usually takes Lantus 24 units daily and blood sugars are 120-200. The patient states he takes Percocet 10mg every 4 hours but has been out of medications since Sunday night. His PCP and he have been reportedly working to decrease opioid use and patient has prescription written for Percocet 5mg to be filled on Sunday. 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 The patient denies changes in vision, shortness of breath, chest pain, palpitations. He denies nausea. He does have dizziness on and off. In the ED, patient given cyclobenzaprine 10mg po x1, diazepam 2mg IV x1, and hydromorphone 0.5mg IV x1. On examination, after medication administration, patient does continue to have tremors of upper extremities though per nursing muscle spasms and body shakes have lessened. The patient is admitted on observation under the care of the hospitalist team for further workup and management of hyperglycemia , uncontrolled diabetes mellitus type II and opioid withdrawal. Diagnosis: Stroke: No - Discharge Data Discharge Date: 09/22/19 (Admit date: 09/20/19) Discharge Disposition: Home, Self-Care 01 Condition: Good - Referral to Home Health Primary Care Physician: Natalya Wiseman, OPTICAL COATING TECHNICIAN - Discharge Diagnosis/Problem(s) (1) Hyperglycemia SNOMED Code(s): 08478953 ICD Code: R73.9 - HYPERGLYCEMIA, UNSPECIFIED Status: Acute Priority: High Current Visit: Yes (2) Hypertension SNOMED Code(s): 20592304 ICD Code: I10 - ESSENTIAL (PRIMARY) HYPERTENSION Status: Chronic Priority : Low Current Visit: Yes Qualifiers: Hypertension type: essential hypertension Qualified Code(s): I10 - Essential (primary) hypertension (3) Hypomagnesemia SNOMED Code(s): 111650635 ICD Code: E83.42 - HYPOMAGNESEMIA Status: Resolved Priority: High Current Visit: Yes (4) Insomnia SNOMED Code(s): 690484834 ICD Code: G47.00 - INSOMNIA, UNSPECIFIED Status: Resolved Priority: Medium Current Visit: No Qualifiers: Insomnia type: unspecified Qualified Code(s): G47.00 - Insomnia, unspecified (5) Opioid dependence SNOMED Code(s): 59879286 ICD Code: F11.20 - OPIOID DEPENDENCE, UNCOMPLICATED Status: Chronic Priority: High Current Visit: Yes Qualifiers: Substance use status: in withdrawal Qualified Code(s): F11.23 - Opioid dependence with withdrawal (6) Diabetes mellitus type 2, insulin dependent SNOMED Code(s): 716758914 ICD Code: E11.9 - TYPE 2 DIABETES MELLITUS WITHOUT COMPLICATIONS; Z79.4 - SOLID FIBER PASTER OPERATOR (CURRENT) USE OF INSULIN Status: Chronic Priority: High Current Visit: Yes (7) Nicotine dependence SNOMED Code(s): 94426038 ICD Code: F17.200 - NICOTINE DEPENDENCE, UNSPECIFIED, UNCOMPLICATED Status : Chronic Priority: High Current Visit: Yes Qualifiers: Nicotine product type: cigarettes Substance use status: unspecified nicotine-induced disorder Qualified Code(s): F17.219 - Nicotine dependence, cigarettes, with unspecified nicotine-induced disorders (8) Polypharmacy SNOMED Code(s): 186890291 ICD Code: Z79.899 - OTHER NURSING HOME (CURRENT) DRUG THERAPY Status: Chronic Priority: Medium Current Visit: Yes (9) Chronic back pain SNOMED Code(s): 980643836 ICD Code: M54.9 - DORSALGIA, UNSPECIFIED; G89.29 - OTHER CHRONIC PAIN Status: Chronic Priority: Medium Current Visit: No Qualifiers: Back pain location: low back pain Back pain laterality: bilateral Sciatica presence: with sciatica Sciatica laterality: bilateral sciatica Qualified Code(s): M54.42 - Lumbago with sciatica, left side; M54.41 - Lumbago with sciatica, right side; G89.29 - Other chronic pain - Patient Summary/Data Consults: Consultations 09/21/19 08:02 Consult to Diabetic Nurse Specialist [CONS] Routine Labs Pending at D/C: None Recommended Follow-up Testing/Procedures: Follow-up with PCP within 5-7 days of discharge Follow-up with chain link fence installer as directed. Hospital Course: Perry was admitted to the medical floor observation status after coming to the emergency room with hyperglycemia. He reports blood sugars were very high at home and in the ED they were noted to be in the 400s. A1c was obtained and was 8.4. Patient is on metformin as well as 25 units of does a daily. This was increased to 30 units daily with good response. Patient did see our dietitian and oxide furnace tender. He was given contact information and instructions to follow-up with diabetic education after discharge. He was instructed to check his blood sugars 4 times a day, at meals and bedtime and record them in a journal. He reportedly was not storing his insulin properly and was instructed to be sure to keep it in of refrigerator. He is a smoker although he refused a nicotine patch while here. We discussed smoking status and he reported that he would like to try Chantix. This was prescribed at discharge he was instructed to follow-up with his primary care provider regarding this. He was also in contact information such as [place] quits and the [facility] community tobacco cessation program. Vital signs and labs otherwise remained stable. Electrolytes were supplemented. Patient does have a significant list of narcotic and nonnarcotic home medications. He reports his primary care provider was trying to wean down his Percocet dosing and he does not feel this is going to work. We discussed follow-up with a pain management clinic and he states that he has had multiple friends who were in those programs . We discussed his need to talk with his primary care provider about his opioid addiction and significant list of home pain and sedation medications. Patient did admit that he will frequently use methamphetamine when the pain gets too severe. Although he does state that he takes a "small dose" so he does not stay up for several days on and but "just makes the pain go away." Discussed with the patient how dangerous this is and how this likely will affect his sugars in a negative way. Strongly advise patient's primary care provider review patient's home medication list. Urine drug screen was obtained here and was positive for benzos and oxycodone. Directed patient to follow-up with his primary care provider within 5 to 7 days of discharge, sooner if needed. Blood sugars have been stable while here. Discussed discharge medications with Dr. Jimenez who advises to continue 30 units of Lantus and resume home metformin. Patient would like to be discharged. He was discharged home today. Throughout his stay there were no symptoms or concerns for COVID-19 infection. - Patient Instructions Diet: Diabetic Diet Activity: As Tolerated Showering/Bathing: May Shower Notify Provider of: Fever, Increased Pain, Nausea and/or Vomiting Other/Special Instructions: Follow-up with primary care provider within 5-7 days of discharge, sooner if needed. Recommend you continue to see oxide furnace tender outpatient. You were provided contact information for many of the local providers. Your primary care provider can assist you in this. Be sure to store your insuin in the refrigerator. This keeps the potency of it. Resume home medications as directed. We discussed your smoking status and you indicated you would be willing to try Chantix to stop. You were provided a prescription for this. Be aware you will need to step down dosing of this as you get closer to quitting. Your primary care provider can assist you with this. You were also given a list of contact information for local resources for cessation aids. Take your blood glucose readings four times a day - before each meal and at bedtime. Record these results in a journal and bring them with to all medical appointments. This includes meetings with your oxide furnace tender. Your insulin dosing was increased. Be sure to follow your new dosing guidelines. It is STRONGLY recommended you discuss your pain medications with your primary care provider to ensure you are recieving optium treatment. Should symptoms return or worsen contact your primary care provider or return to the Emergency Department. - Discharge Plan *PRESCRIPTION DRUG MONITORING PROGRAM REVIEWED*: No *COPY OF PRESCRIPTION DRUG MONITORING REPORT IN PATIENT SLICK: No Prescriptions/Med Rec: Insulin Glarg,Human.Rec.Analog [Lantus] 30 unit SUBCUT DAILY@2200 #1 ml Varenicline Tartrate [Chantix] 1 each PO ASDIRECTED #1 tab.ds.pk Home Medications: Home Meds Cyclobenzaprine [Flexeril] 5 mg PO Q8H PRN 06/28/16 [History] HYDROmorphone [Dilaudid] 4 mg PO Q8HR PRN 09/20/19 [History] Meloxicam [Mobic] 15 mg PO DAILY 09/20/19 [History] diazePAM [Valium] 5 mg PO Q6HR PRN 09/20/19 [History] metFORMIN HCl [Metformin HCl ER] 1,000 mg PO DAILY 09/20/19 [History] oxyCODONE HCl/Acetaminophen [Percocet 10-325 mg Tablet] 1 each PO Q6HR PRN 09/19 [History] tiZANidine [Zanaflex] 4 mg PO BID PRN 09/20/19 [History] Insulin Glarg,Human.Rec.Analog [Lantus] 30 unit SUBCUT DAILY@2200 #1 ml [Rx] Varenicline Tartrate [Chantix] 1 each PO ASDIRECTED #1 tab.ds.pk 09/22/19 [Rx] Oxygen Therapy Mode: Room Air Patient Handouts: Hyperglycemia, [id number], Steps to Quit Smoking Referrals: Natalya Wiseman NP [Primary Care Provider] - 09/26/19 9:15 am (Please follow up with Natalya Wiseman NP on September 25 at 9:15.) - Discharge Summary/Plan Comment DC Time >30 min.: Yes (45 mins ) - General Info Date of Service: 09/22/19 Admission Dx/Problem (Free Text: Admission Diagnosis/Problem Admission Diagnosis/Problem Hyperglycemia, opioid withdrawal Functional Status: Reports: Tolerating Diet, Ambulating, Urinating. Denies: New Symptoms - Review of Systems General: Reports: No Symptoms. Denies: Fever, Weakness, Fatigue, Malaise, Chills HEENT: Reports: No Symptoms. Denies: Headaches, Sore Throat Pulmonary: Reports: No Symptoms. Denies: Shortness of Breath, Cough, Sputum Cardiovascular: Reports: No Symptoms. Denies: Chest Pain, Palpitations Gastrointestinal: Reports: No Symptoms. Denies: Abdominal Pain, Constipation, Diarrhea, Nausea, Vomiting Genitourinary: Reports: No Symptoms. Denies: Pain Musculoskeletal: Reports: Back Pain (chronic ) Skin: Reports: No Symptoms. Denies: Cyanosis Neurological: Reports: Numbness (chronic ), Tingling (chronic ), Tremors. Denies: Confusion, Dizziness, Headache, Trouble Speaking, Difficulty Walking, Weakness, Gait Disturbance Psychiatric: Reports: Anxiety - Patient Data Vitals - Most Recent: Last Vital Signs Temp 97.5 F 09/22/19 08:35 Pulse 71 09/22/19 08:35 Resp 18 09/22/19 08:35 BP 138/92 H 09/22/19 10:00 Pulse Ox 96 09/22/19 08:35 Weight - Most Recent: 202 lb 11.2 oz I&O - Last 24 hours: Intake & Output 09/22/19 09/22/19 09/22/19 06:59 14:59 22:59 Intake Total 800 240 Balance 800 240 Lab Results - Last 24 hrs: Laboratory Results - last 24 hr 09/21/19 09/21/19 09/22/19 Range/Units 17:08 20:35 06:31 Sodium (136-145) mEq/L Potassium (3.5-5.1) mEq/L Chloride (98-107) mEq/L Carbon Dioxide (21-32) mEq/L Anion Gap (5-15) BUN (7-18) mg/dL Creatinine (0.7-1.3) mg/dL Est Cr Clr Drug Dosing mL/min Estimated GFR (MDRD) (>60) mL/min BUN/Creatinine Ratio (14-18) Glucose (74-106) mg/dL POC Glucose 181 H 197 H 99 (70-105) mg/dL Calcium (8.5-10.1) mg/dL Phosphorus (2.6-4.7) mg/dL Magnesium (1.8-2.4) mg/dl 09/22/19 09/22/19 Range/Units 11:12 11:53 Sodium 141 (136-145) mEq/L Potassium 3.8 (3.5-5.1) mEq/L Chloride 103 (98-107) mEq/L Carbon Dioxide 25 (21-32) mEq/L Anion Gap 16.8 H (5-15) BUN 14 (7-18) mg/dL Creatinine 0.9 (0.7-1.3) mg/dL Est Cr Clr Drug Dosing 95.76 mL/min Estimated GFR (MDRD) > 60 (>60) mL/min BUN/Creatinine Ratio 15.6 (14-18) Glucose 168 H (74-106) mg/dL POC Glucose 154 H (70-105) mg/dL Calcium 9.2 (8.5-10.1) mg/dL Phosphorus 3.5 (2.6-4.7) mg/dL Magnesium 2.1 (1.8-2.4) mg/dl Med Orders - Current: Current Medications Acetaminophen (Tylenol) 650 mg PO Q4H PRN PRN Reason: Pain (Mild 1-3)/fever Albuterol/Ipratropium (Duoneb 3.0-0.5 Mg/3 Ml) 3 ml NEB Q4H PRN PRN Reason: Shortness Of Breath/wheezing Dextrose/Water (Dextrose 50% In Water) 50 ml IVPUSH ASDIRECTED PRN PRN Reason: Blood sugar <60 Docusate Sodium (Colace) 100 mg PO BID PRN PRN Reason: Constipation Enoxaparin Sodium (Lovenox) 40 mg SUBCUT DAILY [facility] Last Admin: 09/22/19 08:41 Dose: 40 mg Insulin Glargine (Lantus) 30 unit SUBCUT DAILY@2200 [facility] Last Admin: 09/21/19 22:56 Dose: 30 units Miscellaneous Information (Remove Patch) 1 ea TRDERM DAILY [facility] Last Admin: 09/22/19 08:41 Dose: Not Given Morphine Sulfate (Morphine) 1 mg IVPUSH Q4H PRN PRN Reason: Pain (severe 7-10) Last Admin: 09/22/19 12:01 Dose: 1 mg Nicotine (Habitrol) 14 mg TRDERM DAILY [facility] Last Admin: 09/22/19 08:41 Dose: Not Given Ondansetron HCl (Zofran) 4 mg IV Q4H PRN PRN Reason: Nausea/Vomiting Last Admin: 09/21/19 01:06 Dose: 4 mg Oxycodone/Acetaminophen (Percocet 325-5 Mg) 1 tab PO Q8H PRN PRN Reason: Pain (moderate 4-6) Last Admin: 09/22/19 09:30 Dose: 1 tab Sodium Chloride (Saline Flush) 10 ml FLUSH ASDIRECTED PRN PRN Reason: Keep Vein Open Last Admin: 09/20/19 15:55 Dose: 10 ml Temazepam (Restoril) 15 mg PO BEDTIME PRN PRN Reason: Sleep Last Admin: 09/20/19 21:22 Dose: 15 mg Discontinued Medications Cyclobenzaprine HCl (Flexeril) 10 mg PO ONETIME ONE Stop: 09/20/19 17:09 Last Admin: 09/20/19 17:32 Dose: 10 mg Diazepam (Valium) 2 mg IVPUSH ONETIME ONE Stop: 09/20/19 16:58 Last Admin: 09/20/19 19:11 Dose: Not Given Hydromorphone HCl (Dilaudid) 0.5 mg IVPUSH ONETIME ONE Stop: 09/20/19 16:44 Last Admin: 09/20/19 16:50 Dose: 0.5 mg Sodium Chloride (Normal Saline) 1,000 mls @ 999 mls/hr IV ASDIRECTED [facility] Last Admin: 09/20/19 16:26 Dose: 999 mls/hr Potassium Chloride/Sodium Chloride (1/2 Ns With 20 Meq Kcl) 1,000 mls @ 75 mls/ hr IV ASDIRECTED [facility] Last Admin: 09/20/19 19:24 Dose: 75 mls/hr Lactated Ringer's (Ringers, Lactated) 1,000 mls @ 75 mls/hr IV ASDIRECTED [facility] Last Admin: 09/21/19 09:05 Dose: 75 mls/hr Magnesium Sulfate 2 gm/ Premix 50 mls @ 25 mls/hr IV ONETIME ONE Stop: 09/20/19 21:59 Last Admin: 09/20/19 21:18 Dose: 25 mls/hr Insulin Glargine (Lantus) 24 unit SUBCUT DAILY [facility] Insulin Human Lispro (Humalog) 0 unit SUBCUT QIDACANDBED [facility]; Protocol Losartan Potassium (Cozaar) 50 mg PO BEDTIME [facility] Morphine Sulfate (Morphine) 1 mg IVPUSH Q2H PRN PRN Reason: Pain (severe 7-10) Stop: 09/21/19 18:41 Oxycodone/Acetaminophen (Percocet 325-5 Mg) 1 tab PO Q4H PRN PRN Reason: Pain (moderate 4-6) Potassium Chloride (Klor-Con M20) 40 meq PO ONETIME ONE Stop: 09/20/19 19:42 Last Admin: 09/20/19 20:03 Dose: 40 meq - Exam Quality Assessment: Reports: DVT Prophylaxis General: Reports: Alert, Oriented, Cooperative, No Acute Distress HEENT: Reports: Pupils Equal, Pupils Reactive, Mucous Membr. Moist/[place] Neck: Reports: Supple, Trachea Midline Lungs: Reports: Clear to Auscultation, Normal Respiratory Effort Cardiovascular: Reports: Regular Rate, Regular Rhythm GI/Abdominal Exam: Normal Bowel Sounds, Soft, Non-Tender, No Organomegaly, No Distention (Male) Exam: Deferred Rectal (Males) Exam: Deferred Back Exam: Reports: Normal Inspection Extremities: Normal Range of Motion, Non-Tender, No Pedal Edema, Normal Capillary Refill, Other (Right leg prothesis with below the knee amputation) Skin: Reports: Warm, Dry, Intact Neurological: Reports: No New Focal Deficit Psy/Mental Status: Reports: Alert, Anxious
== END 2019-09-22 16:06 | disposition home or self-care (01) ==
LOC: JD.ED 15:23 → JD.MS 18:10
PROVIDERS: ADMIT Internal Medicine; ATTEND Internal Medicine
DX: E11.65 Type 2 diabetes mellitus with hyperglycemia (principal); E78.00 Pure hypercholesterolemia, unspecified; I10 Essential (primary) hypertension; F41.9 Anxiety disorder, unspecified; F32.9 Major depressive disorder, single episode, unspecified; J45.909 Unspecified asthma, uncomplicated; F11.23 Opioid dependence with withdrawal; E11.42 Type 2 diabetes mellitus with diabetic polyneuropathy; G47.00 Insomnia, unspecified; E83.42 Hypomagnesemia; G89.29 Other chronic pain; F17.219 Nicotine dependence, cigarettes, with unspecified nicotine-induced disorders; M54.42 Lumbago with sciatica, left side; M54.41 Lumbago with sciatica, right side; Z11.59 Encounter for screening for other viral diseases; Z79.899 Other long term (current) drug therapy; Z88.0 Allergy status to penicillin; Z79.4 Long term (current) use of insulin; Z91.14 Patient's other noncompliance with medication regimen
CPT/HCPCS: 36415; 36600; 80048; 80053; 80306; 81001; 82009; 82550; 82803; 82962; 83036; 83605; 83735; 84100; 84484; 85025; 93005; 94762; 96361; 96365; 96366; 96372; 96375; 96376; 99285; A9270; G0378; J1170; J1650; J1815; J2270; J2405; J3475; J3480; J7030; J7120; 93010; 96374; 99217; 99220; 99225

== ENCOUNTER 2020-08-15 14:50 | Emergency (ER) | payer MEDICARE, OTHER ==
[2020-08-15] MEDS ORDERED: LORazepam 2 MG/ML SDV IVPUSH ONE (14:56)
[2020-08-15 14:57] VITALS: BP 163/114; PULSE 106
--- NOTE | 2020-08-15 15:05 | EDM.PDOC ---
ED HPI GENERAL MEDICAL PROBLEM - General Chief Complaint: Neurological Problem Stated Complaint: [facility] Time Seen by Provider: 08/15/20 14:50 - History of Present Illness INITIAL COMMENTS - FREE TEXT/NARRATIVE: 55-year-old male brought in by [facility] after having an apparent seizure at home. This was witnessed. Patient has no history of seizure disorders he has poorly controlled diabetes chronic pain from several accidents. And he used some meth yesterday. Patient states he was spending a lot of time on the computer and wonders if this contributed to this. The patient does not recall what happened he awoke he lost control of his bladder. He bit his tongue. He has no family history of seizures he has no seizure history of seizures himself. He has not had a recent illness however he has not used his medications for his diabetes for several days. - Related Data Allergies Allergy/AdvReac Type Severity Reaction Status Date / Time Penicillins Allergy Severe Rash Verified 08/15/20 14:57 Sulfa (Sulfonamide Allergy Severe Rash Verified 08/15/20 14:57 Antibiotics) [id number] Reductase AdvReac Severe Other Verified 08/15/20 14:57 Inhibitor Home Meds: Home Meds Cyclobenzaprine [Flexeril] 5 mg PO Q8H PRN 06/28/16 [History] HYDROmorphone [Dilaudid] 4 mg PO Q8HR PRN 09/20/19 [History] Meloxicam [Mobic] 15 mg PO DAILY PRN 09/20/19 [History] diazePAM [Valium.] 5 mg PO Q6HR PRN 09/20/19 [History] metFORMIN HCl [Metformin HCl ER] 1,000 mg PO DAILY 09/20/19 [History] oxyCODONE HCl/Acetaminophen [Percocet 10-325 mg Tablet] 1 each PO Q6HR PRN 09/20/19 [History] tiZANidine [Zanaflex] 4 mg PO BID PRN 09/20/19 [History] Insulin Glarg,Human.Rec.Analog [Lantus] 30 - 40 unit SUBCUT BEDTIME 08/15/20 [Hi story] Past Medical History HEENT History: Reports: Impaired Vision Other HEENT History: wears eyeglasses Cardiovascular History: Reports: High Cholesterol, Hypertension Respiratory History: Reports: Asthma, Bronchitis, Recurrent Gastrointestinal History: Reports: None Genitourinary History: Reports: Renal Calculus Musculoskeletal History: Reports: Back Pain, Chronic Other Musculoskeletal History: RBKA 1987, 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 Neurological History: Reports: Migraines Psychiatric History: Reports: Anxiety, Depression Endocrine/Metabolic History: Reports: Diabetes, Type II Oncologic (Cancer) History: Reports: None Dermatologic History: Reports: Psoriasis Other Dermatologic History: Bilat elbows and knees - Infectious Disease History Infectious Disease History: Reports: Chicken Pox - Past Surgical History GI Surgical History: Reports: Colonoscopy, EGD Social & Family History - Family History Family Medical History: No Pertinent Family History Neurological: Reports: Alzheimers Disease, CVA - Caffeine Use Caffeine Use: Reports: Coffee ED ROS GENERAL - Review of Systems Review Of Systems: See Below Constitutional: Reports: No Symptoms HEENT: Reports: Other (He is got up uncomfortable tongue from where he bit it) Respiratory: Reports: No Symptoms Cardiovascular: Reports: No Symptoms Endocrine: Reports: No Symptoms GI/Abdominal: Reports: No Symptoms : Reports: No Symptoms Musculoskeletal: Reports: Other (He has chronic back pain. 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.) Skin: Reports: No Symptoms Neurological: Reports: Seizure Psychiatric: Reports: No Symptoms ED EXAM, NEURO - Physical Exam Exam: See Below Exam Limited By: No Limitations General Appearance: Alert, No Apparent Distress, Other (The patient is at or near baseline at the time of my initial examination apparently he was quite somnolent after the seizure) Eye Exam: Bilateral Eye: Normal Inspection, PERRL Ears: Normal External Exam, Normal Canal, Hearing Grossly Normal, Normal TMs Nose: Normal Inspection, Normal Mucosa, No Blood Throat/Mouth: Normal Inspection, Normal Lips, Normal Gums, Normal Oropharynx, Normal Voice, No Airway Compromise, Other (Has some bruising on the side of his tongue and a superficial abrasion or laceration over the top of his tongue) Head Exam: Atraumatic, Normocephalic Neck: Normal Inspection. No: Supple, Non-Tender, Full Range of Motion, Lymphadenopathy (L), Lymphadenopathy (R), Tender Lateral, Tender Midline Respiratory/Chest: No Respiratory Distress, Lungs Clear, Normal Breath Sounds Cardiovascular: Regular Rate, Rhythm, No Edema, No Murmur GI/Abdominal: Normal Bowel Sounds, Soft, Non-Tender, Pelvis Stable Neurological: Alert, Normal Mood/Affect Back Exam: Normal Inspection. No: CVA Tenderness (L), CVA Tenderness (R) Extremities: Other (Lower leg prosthesis other extremities no apparent problems) Psychiatric: Normal Affect, Normal Mood Course - Vital Signs Last Recorded V/S: Last Vital Signs Temp 36.2 C 08/15/20 14:54 Pulse 106 H 08/15/20 14:54 Resp 20 08/15/20 14:54 BP 163/114 H 08/15/20 14:54 Pulse Ox 97 08/15/20 14:54 - Orders/Labs/Meds Orders: Active Orders 24 hr Category Date Time Status Head wo Cont [CT] Stat Exams 08/15/20 14:57 Taken Labs: Laboratory Tests 08/15/20 08/15/20 08/15/20 Range/Units 15:05 15:05 17:40 WBC 9.46 H (4.23-9.07) K/mm3 RBC 5.62 (4.63-6.08) M/mm3 Hgb 16.8 D (13.7-17.5) gm/dl Hct 48.0 (40.1-51.0) % MCV 85.4 (79.0-92.2) fl MCH 29.9 (25.7-32.2) pg MCHC 35.0 (32.2-35.5) g/dl RDW Std Deviation 40.6 (35.1-43.9) fL Plt Count 240 (163-337) K/mm3 MPV 10.2 (9.4-12.3) fl Neut % (Auto) 80.0 H (34.0-67.9) % Lymph % (Auto) 11.8 L (21.8-53.1) % Dickens % (Auto) 7.4 (5.3-12.2) % Eos % (Auto) 0.4 L (0.8-7.0) Baso % (Auto) 0.1 (0.1-1.2) % Neut # (Auto) 7.56 H (1.78-5.38) K/mm3 Lymph # (Auto) 1.12 L (1.32-3.57) K/mm3 Dickens # (Auto) 0.70 (0.30-0.82) K/mm3 Eos # (Auto) 0.04 (0.04-0.54) K/mm3 Baso # (Auto) 0.01 (0.01-0.08) K/mm3 Sodium 139 (136-145) mEq/L Potassium 3.6 (3.5-5.1) mEq/L Chloride 100 (98-107) mEq/L Carbon Dioxide 22 (21-32) mEq/L Anion Gap 20.6 H (5-15) BUN 20 H (7-18) mg/dL Creatinine 1.1 (0.7-1.3) mg/dL Est Cr Clr Drug Dosing 77.42 mL/min Estimated GFR (MDRD) > 60 (>60) mL/min BUN/Creatinine Ratio 18.2 H (14-18) Glucose 341 H (74-106) mg/dL Calcium 9.2 (8.5-10.1) mg/dL Total Bilirubin 0.8 (0.2-1.0) mg/dL AST 17 (15-37) U/L ALT 38 (16-63) U/L Alkaline Phosphatase 62 (46-116) U/L Total Protein 8.1 (6.4-8.2) g/dl Albumin 4.3 (3.4-5.0) g/dl Globulin 3.8 gm/dL Albumin/Globulin Ratio 1.1 (1-2) Urine Color Yellow (Yellow) Urine Appearance Clear (Clear) Urine pH 5.5 (5.0-8.0) Ur Specific [place] 1.025 (1.005-1.030) Urine Protein 2+ H (Negative) Urine Glucose (UA) 2+ H (Negative) Urine Ketones 3+ H (Negative) Urine Occult Blood Trace-intact H (Negative) Urine Nitrite Negative (Negative) Urine Bilirubin Negative (Negative) Urine Urobilinogen 0.2 (0.2-1.0) Ur Leukocyte Esterase Negative (Negative) Urine RBC 0-5 (0-5) /hpf Urine WBC 0-5 (0-5) /hpf Ur Squamous Epith Cells 0-5 (0-5) /hpf Urine Bacteria Few (FEW) /hpf Urine Mucus Few (FEW) /hpf Urine Opiates Screen (ZSPVPF=454) Ur Buprenorphine Scrn (CUTOFF=10) Ur Oxycodone Screen (YYI8LJ=631) Urine Methadone Screen (HEY7TT=453) Ur Propoxyphene Screen (WDATVC=262) Ur Barbiturates Screen (WQXFRM=281) Ur Tricyclics Screen (KBDRRG=066) Ur Phencyclidine Scrn (CUTOFF=25) Ur Amphetamine Screen (ISAXHA=950) U Methamphetamines Scrn (DDDEAR=603) U Benzodiazepines Scrn (ZQQAED=467) U Cocaine Metab Screen (PYXEDE=171) U Marijuana (THC) Screen (CUTOFF=50) Ethyl Alcohol 0.00 (0.00) gm% 08/15/20 Range/Units 17:40 WBC (4.23-9.07) K/mm3 RBC (4.63-6.08) M/mm3 Hgb (13.7-17.5) gm/dl Hct (40.1-51.0) % MCV (79.0-92.2) fl MCH (25.7-32.2) pg MCHC (32.2-35.5) g/dl RDW Std Deviation (35.1-43.9) fL Plt Count (163-337) K/mm3 MPV (9.4-12.3) fl Neut % (Auto) (34.0-67.9) % Lymph % (Auto) (21.8-53.1) % Dickens % (Auto) (5.3-12.2) % Eos % (Auto) (0.8-7.0) Baso % (Auto) (0.1-1.2) % Neut # (Auto) (1.78-5.38) K/mm3 Lymph # (Auto) (1.32-3.57) K/mm3 Dickens # (Auto) (0.30-0.82) K/mm3 Eos # (Auto) (0.04-0.54) K/mm3 Baso # (Auto) (0.01-0.08) K/mm3 Sodium (136-145) mEq/L Potassium (3.5-5.1) mEq/L Chloride (98-107) mEq/L Carbon Dioxide (21-32) mEq/L Anion Gap (5-15) BUN (7-18) mg/dL Creatinine (0.7-1.3) mg/dL Est Cr Clr Drug Dosing mL/min Estimated GFR (MDRD) (>60) mL/min BUN/Creatinine Ratio (14-18) Glucose (74-106) mg/dL Calcium (8.5-10.1) mg/dL Total Bilirubin (0.2-1.0) mg/dL AST (15-37) U/L ALT (16-63) U/L Alkaline Phosphatase (46-116) U/L Total Protein (6.4-8.2) g/dl Albumin (3.4-5.0) g/dl Globulin gm/dL Albumin/Globulin Ratio (1-2) Urine Color (Yellow) Urine Appearance (Clear) Urine pH (5.0-8.0) Ur Specific [place] (1.005-1.030) Urine Protein (Negative) Urine Glucose (UA) (Negative) Urine Ketones (Negative) Urine Occult Blood (Negative) Urine Nitrite (Negative) Urine Bilirubin (Negative) Urine Urobilinogen (0.2-1.0) Ur Leukocyte Esterase (Negative) Urine RBC (0-5) /hpf Urine WBC (0-5) /hpf Ur Squamous Epith Cells (0-5) /hpf Urine Bacteria (FEW) /hpf Urine Mucus (FEW) /hpf Urine Opiates Screen Negative (WIDXUO=443) Ur Buprenorphine Scrn Negative (CUTOFF=10) Ur Oxycodone Screen Negative (EAP8KI=139) Urine Methadone Screen Negative (ODC4TC=706) Ur Propoxyphene Screen Negative (OIWLTH=040) Ur Barbiturates Screen Negative (JGDRPI=645) Ur Tricyclics Screen Negative (SQGXPS=749) Ur Phencyclidine Scrn Negative (CUTOFF=25) Ur Amphetamine Screen Presumptive positive H (LPXSKA=083) U Methamphetamines Scrn Presumptive positive H (TCRJKW=859) U Benzodiazepines Scrn Presumptive positive H (FGORDB=805) U Cocaine Metab Screen Negative (TTDEMF=805) U Marijuana (THC) Screen Negative (CUTOFF=50) Ethyl Alcohol (0.00) gm% Meds: Medications Discontinued Medications Generic Name Dose Route Start Last Admin Trade Name Freq PRN Reason Stop Dose Admin Lorazepam 1 mg 08/15/20 14:56 08/15/20 15:28 Lorazepam 2 Mg/Ml Sdv IVPUSH 08/15/20 14:57 1 mg ONETIME ONE Administration - Re-Assessments/Exams Free Text/Narrative Re-Assessment/Exam: 08/15/20 18:[address] Sparks on-call neurologist at [facility] in [place] who recommends that the patient get a brain MRI with contrast as an outpatient to be certain nothing else is causing these seizures but he recommends that the patient avoids illicit drug use like the meth use yesterday. I will again recommend to the patient not to use meth or any other illicit drugs. Also here in the emergency room the patient is remained seizure-free he did receive 1 mg of Ativan shortly after arriving in the department. His labs reveals blood sugar is quite elevated I did discuss his diabetes with him and as it turns out he does not always take his medication he has not used his insulin for several days. He uses Lantus 30 to 40 units nightly if he feels like it. But he has not used it for several days we will advised him to start using it. Departure - Departure Time of Disposition: 18:49 Disposition: Home, Self-Care 01 Clinical Impression: Seizure - Discharge Information Referrals: Natalya Wiseman NP [Primary Care Provider] - Forms: ED Department Discharge Additional Instructions: Return to the emergency room with any questions problems or worsening symptoms. Do not drive or operate hazardous equipment until cleared to do so by a physician or healthcare provider. For now you should not be placed on antiepileptic or antiseizure medication unless you have another seizure. To complete your seizure evaluation you need to have your regular healthcare provider schedule you for a brain MRI with contrast. Avoid meth or any other recreational drugs some of these can indeed precipitate seizure activity. Tighten up control of your diabetes and use your insulin and Metformin as directed. Sepsis Event Note (ED) - Focused Exam Vital Signs: Vital Signs Temp Pulse Resp BP Pulse Ox 08/15/20 14:54 36.2 C 106 H 20 163/114 H 97 - My Orders Last 24 Hours: My Active Orders 08/15/20 14:57 Head wo Cont [CT] Stat - Assessment/Plan Last 24 Hours: My Active Orders 08/15/20 14:57 Head wo Cont [CT] Stat
--- NOTE | 2020-08-16 11:17 | CT ---
Head CT Technique: Multiple axial sections through the brain were obtained. Comparison: Prior brain MRI of 06/28/[address] study of 06/28/16. Findings: Ventricles along with basal cisterns and sulci over the convexities are within normal limits for the patient's age. No abnormal parenchymal densities are seen. No evidence of intracranial hemorrhage. No midline shift or mass-effect is appreciated. Bone window settings were reviewed which show minimal mucosal thickening within the inferior left mastoid sinus which is most likely chronic. No acute mastoid sinus findings are seen. Visualized paranasal sinuses show nothing acute. No acute calvarial finding is appreciated. Impression: 1. Minimal left mastoid sinus findings believed to be incidental. 2. Nothing acute is appreciated on noncontrast head CT study. Diagnostic code #2 I agree with preliminary report from [facility], finalized on 08/15/20, 5:23 PM CDT
== END 2020-08-15 19:30 | disposition home or self-care (01) ==
LOC: JD.ED 14:50
DX: R56.9 Unspecified convulsions (principal); S00.532A Contusion of oral cavity, initial encounter; G89.29 Other chronic pain; M54.9 Dorsalgia, unspecified; I10 Essential (primary) hypertension; J45.909 Unspecified asthma, uncomplicated; E11.9 Type 2 diabetes mellitus without complications; Z89.512 Acquired absence of left leg below knee; Z88.0 Allergy status to penicillin; Z88.2 Allergy status to sulfonamides; Z88.8 Allergy status to other drugs, medicaments and biological substances; Z79.4 Long term (current) use of insulin; Z79.899 Other long term (current) drug therapy; X58.XXXA Exposure to other specified factors, initial encounter
CPT/HCPCS: 36415; 70450; 80053; 80306; 80307; 81001; 82962; 85025; 96374; 99284; J2060

== ENCOUNTER 2021-02-14 01:43 | Emergency (ER) | payer MEDICARE, OTHER ==
--- NOTE | 2021-02-14 02:19 | EDM.PDOC ---
ED HPI GENERAL MEDICAL PROBLEM - General Chief Complaint: Drug or Alcohol Abuse Stated Complaint: [facility] Time Seen by Provider: 02/14/21 02:19 - History of Present Illness INITIAL COMMENTS - FREE TEXT/NARRATIVE: Patient was brought in by EMS a little uncertain what happened. Now he thinks he was in his garage to get his phone and as long as he was out there he was going to put some screws and nails away he slipped and fell landing on the screws and nails has a few abrasions and scratches on his hands associated with this. Has a large goose egg on the right side of his scalp and a shallow laceration over the bridge of his nose. The patient has a prosthetic leg twisted this pretty hard and is not having any pain associated with this. Patient denies any other injury associated with this most unfortunate event. Patient denies any drugs or alcohol. He believes his last tetanus shot was about a year. - Related Data Allergies Allergy/AdvReac Type Severity Reaction Status Date / Time Penicillins Allergy Severe Rash Verified 02/14/21 01:52 Sulfa (Sulfonamide Allergy Severe Rash Verified 02/14/21 01:52 Antibiotics) [id number]-Ljg-[id number] Reductase AdvReac Severe Other Verified 02/14/21 01:52 Inhibitor Home Meds: Home Meds Cyclobenzaprine [Flexeril] 5 mg PO Q8H PRN 06/28/16 [History] Meloxicam [Mobic] 15 mg PO DAILY PRN 09/20/19 [History] metFORMIN HCl [Metformin HCl ER] 1,000 mg PO DAILY 09/20/19 [History] oxyCODONE HCl/Acetaminophen [Percocet 10-325 mg Tablet] 1 each PO Q6HR PRN 09/20/19 [History] Insulin Glarg,Human.Rec.Analog [Lantus] 30 - 40 unit SUBCUT BEDTIME 08/15/20 [History] Past Medical History HEENT History: Reports: Impaired Vision Other HEENT History: wears eyeglasses Cardiovascular History: Reports: High Cholesterol, Hypertension Respiratory History: Reports: Asthma, Bronchitis, Recurrent Gastrointestinal History: Reports: None Genitourinary History: Reports: Renal Calculus Musculoskeletal History: Reports: Back Pain, Chronic Other Musculoskeletal History: RBKA 1987, 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 Neurological History: Reports: Migraines Psychiatric History: Reports: Anxiety, Depression Endocrine/Metabolic History: Reports: Diabetes, Type II Oncologic (Cancer) History: Reports: None Dermatologic History: Reports: Psoriasis Other Dermatologic History: Bilat elbows and knees - Infectious Disease History Infectious Disease History: Reports: Chicken Pox - Past Surgical History HEENT Surgical History: Reports: None Cardiovascular Surgical History: Reports: None GI Surgical History: Reports: Colonoscopy, EGD Other GI Surgeries/Procedures: 2015 Male Surgical History: Reports: None Endocrine Surgical History: Reports: None Neurological Surgical History: Reports: None Musculoskeletal Surgical History: Reports: Amputation, Other (See Below) Other Musculoskeletal Surgeries/Procedures:: RBKA, Left wrist surgery R/T fx. Right hand surgery as had screwdriver through hand. Dermatological Surgical History: Reports: None Social & Family History - Family History Family Medical History: No Pertinent Family History Neurological: Reports: Alzheimers Disease, CVA - Tobacco Use Tobacco Use Status *Q: Current Every Day Tobacco User Years of Tobacco use: 25 Packs/Tins Daily: 1 - Caffeine Use Caffeine Use: Reports: Coffee - Recreational Drug Use Recreational Drug Use: Yes ED ROS GENERAL - Review of Systems Review Of Systems: See Below Constitutional: Reports: No Symptoms HEENT: Reports: No Symptoms Respiratory: Reports: No Symptoms Cardiovascular: Reports: No Symptoms Endocrine: Reports: No Symptoms GI/Abdominal: Reports: No Symptoms : Reports: No Symptoms Musculoskeletal: Reports: No Symptoms Skin: Reports: No Symptoms Neurological: Reports: Headache (Mild) Psychiatric: Reports: Other (He does ask however he acts like he might be under the influence of a stimulant). Denies: Agitation, Anxiety ED EXAM, GENERAL - Physical Exam Exam: See Below Exam Limited By: No Limitations General Appearance: Alert, No Apparent Distress Eye Exam: Bilateral Eye: Normal Inspection Ears: Normal External Exam, Normal Canal, Hearing Grossly Normal, Normal TMs Nose: Normal Inspection, Normal Mucosa, No Blood Throat/Mouth: Normal Inspection, Normal Lips, Normal Teeth, Normal Gums, Normal Oropharynx, Normal Voice, No Airway Compromise Head: Atraumatic, Normocephalic Neck: Normal Inspection, Supple, Tender Midline (Mild). No: Lymphadenopathy (L), Lymphadenopathy (R) Respiratory/Chest: No Respiratory Distress, Lungs Clear, Normal Breath Sounds Cardiovascular: Regular Rate, Rhythm, No Edema, No Murmur GI/Abdominal: Normal Bowel Sounds, Soft, Non-Tender Back Exam: Normal Inspection. No: CVA Tenderness (L), CVA Tenderness (R), Muscle Spasm, Paraspinal Tenderness, Vertebral Tenderness Course - Orders/Labs/Meds Orders: Active Orders 24 hr Category Date Time Status Cervical Spine wo Cont [CT] Stat Exams 02/14/21 02:27 Taken Head wo Cont [CT] Stat Exams 02/14/21 02:27 Taken - Re-Assessments/Exams Free Text/Narrative Re-Assessment/Exam: 02/14/21 02:29 Patient declines blood work at this time he does consent to a head CT however 02/14/21 04:05 Head and C-spine CT scans are both negative for acute fracture dislocation. No acute intracranial abnormalities identified. Discussed these with the patient the patient really wants to be discharged so he can go home. Departure - Departure Time of Disposition: 04:06 Disposition: Home, Self-Care 01 Clinical Impression: Head injury, Neck injury Fall Qualifiers: Encounter type: initial encounter Qualified Code(s): W19.XXXA - Unspecified fall, initial encounter - Discharge Information Referrals: Tonya Harvey NP [Primary Care Provider] - Forms: ED Department Discharge Additional Instructions: Return to the emergency room with any questions problems or worsening symptoms Follow-up with your regular healthcare provider later this week for recheck.. Sepsis Event Note (ED) - Evaluation Sepsis Screening Result: No Definite Risk - My Orders Last 24 Hours: My Active Orders 02/14/21 02:27 Cervical Spine wo Cont [CT] Stat Head wo Cont [CT] Stat - Assessment/Plan Last 24 Hours: My Active Orders 02/14/21 02:27 Cervical Spine wo Cont [CT] Stat Head wo Cont [CT] Stat
--- NOTE | 2021-02-14 07:58 | CT ---
CT cervical spine Technique: Multiple axial sections were obtained from above C1 inferiorly to the bottom of T2. Reconstructed coronal and sagittal images were obtained. Comparison: No prior cervical spine imaging is available. Findings: Slight degenerative change is seen between the dens and anterior arch of C1. Minimal disc space narrowing is noted at C6-7. Slight anterior osteophytes are noted at C5-6 and C6-7. Vertebral body heights are maintained. No bony central or bony neural foraminal stenosis is seen. Ligamentum nuchal calcification is noted. Very minimal scattered degenerative change is noted within the apophyseal joints. No fracture or subluxation is appreciated. Impression: 1. Mild degenerative change as noted above. 2. Nothing acute is appreciated on CT study of the cervical spine. Diagnostic code #2 I agree with preliminary report from [facility], finalized on 02/14/21, 4:50 AM CDT
--- NOTE | 2021-02-14 07:59 | CT ---
Head CT Technique: Multiple axial sections through the brain were obtained. Intravenous contrast was not utilized. Reconstructed coronal and sagittal images were obtained. Comparison: Prior MRI brain of 08/23/[address] study of 08/22/19. Findings: Ventricles along with basal cisterns and sulci over the convexities appear slightly prominent. 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 Minimal areas of diminished density are noted within the periventricular white matter. These findings are most likely due to small vessel ischemic demyelination change. No other abnormal parenchymal densities are seen. No evidence of intracranial hemorrhage is seen. No midline shift or mass-effect is seen. Bone window settings were reviewed. Visualized paranasal sinuses and mastoid sinuses are clear. No acute calvarial abnormality is appreciated. Impression: 1. Mild senescent change as described above. 2. No acute intracranial abnormality is appreciated. Diagnostic code #2 I agree with preliminary report from [facility], finalized on 02/14/21, 4:49 AM CDT, code Diagnostic code #1
== END 2021-02-14 04:43 | disposition home or self-care (01) ==
LOC: JD.ED 01:43
DX: S01.21XA Laceration without foreign body of nose, initial encounter (principal); S19.9XXA Unspecified injury of neck, initial encounter; E11.9 Type 2 diabetes mellitus without complications; I10 Essential (primary) hypertension; Z79.4 Long term (current) use of insulin; Z88.0 Allergy status to penicillin; Z88.2 Allergy status to sulfonamides; Z88.8 Allergy status to other drugs, medicaments and biological substances; Z89.511 Acquired absence of right leg below knee; Z72.0 Tobacco use; W01.198A Fall on same level from slipping, tripping and stumbling with subsequent striking against other object, initial encounter
CPT/HCPCS: 70450; 70450-26; 72125; 72125-26; 99284; 99284-25

== ENCOUNTER 2021-05-10 02:37 | Emergency (ER) | payer MEDICARE, OTHER ==
[2021-05-10 02:49] VITALS: BP 128/83; PULSE 89
--- NOTE | 2021-05-10 02:49 | EDM.PDOC ---
ED HPI GENERAL MEDICAL PROBLEM - General Chief Complaint: Neurological Problem Stated Complaint: [facility] Time Seen by Provider: 05/10/21 02:47 Source of Information: Reports: Patient, EMS, RN Notes Reviewed History Limitations: Reports: Intoxication, Uncooperative - History of Present Illness INITIAL COMMENTS - FREE TEXT/NARRATIVE: Patient is a 55-year-old male presents after being found unresponsive. He was given Narcan on scene with improvement of alertness. He denies any drug or alcohol use tonight. He reports feeling an air bubble in his stomach but otherw ise denies fevers, chills, nausea, vomiting. Patient does have a history of polysubstance abuse noted in medical records. No reported history of traumatic injury. - Related Data Allergies Allergy/AdvReac Type Severity Reaction Status Date / Time Penicillins Allergy Severe Rash Verified 05/10/21 02:44 Sulfa (Sulfonamide Allergy Severe Rash Verified 05/10/21 02:44 Antibiotics) [id number] Reductase AdvReac Severe Other Verified 05/10/21 02:44 Inhibitor [Jlzttth-Rvh-Viy Reductase Inhibitor] Home Meds: Home Meds Cyclobenzaprine [Flexeril] 5 mg PO Q8H PRN 06/28/16 [History] Meloxicam [Mobic] 15 mg PO DAILY PRN 09/20/19 [History] metFORMIN HCl [Metformin HCl ER] 1,000 mg PO DAILY 09/20/19 [History] oxyCODONE HCl/Acetaminophen [Percocet 10-325 mg Tablet] 1 each PO Q6HR PRN 09/20/19 [History] Insulin Glarg,Human.Rec.Analog [Lantus] 30 - 40 unit SUBCUT BEDTIME 08/15/20 [History] Past Medical History HEENT History: Reports: Impaired Vision Other HEENT History: wears eyeglasses Cardiovascular History: Reports: High Cholesterol, Hypertension Respiratory History: Reports: Asthma, Bronchitis, Recurrent Gastrointestinal History: Reports: None Genitourinary History: Reports: Renal Calculus Musculoskeletal History: Reports: Back Pain, Chronic Other Musculoskeletal History: RBKA 1987, 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 Neurological History: Reports: Migraines Psychiatric History: Reports: Anxiety, Depression Endocrine/Metabolic History: Reports: Diabetes, Type II Oncologic (Cancer) History: Reports: None Dermatologic History: Reports: Psoriasis Other Dermatologic History: Bilat elbows and knees - Infectious Disease History Infectious Disease History: Reports: Chicken Pox - Past Surgical History HEENT Surgical History: Reports: None Cardiovascular Surgical History: Reports: None GI Surgical History: Reports: Colonoscopy, EGD Other GI Surgeries/Procedures: 2015 Male Surgical History: Reports: None Endocrine Surgical History: Reports: None Neurological Surgical History: Reports: None Musculoskeletal Surgical History: Reports: Amputation, Other (See Below) Other Musculoskeletal Surgeries/Procedures:: RBKA, Left wrist surgery R/T fx. Right hand surgery as had screwdriver through hand. Dermatological Surgical History: Reports: None Social & Family History - Family History Family Medical History: No Pertinent Family History Neurological: Reports: Alzheimers Disease, CVA - Caffeine Use Caffeine Use: Reports: Coffee ED ROS GENERAL - Review of Systems Review Of Systems: Unable To Obtain Reason Not Obtained: Intoxication ED EXAM, GENERAL - Physical Exam Exam: See Below Free Text/Narrative:: I have reviewed the triage vital signs Const: Poorly nourished with eyes closed and groaning in bed. No obvious distress., appears older than stated age Eyes: Pupils Equal and reactive to light bilaterally, no conjunctival injection HENT: No signs of trauma or swelling, Neck supple without meningismus CV: Regular Rate Rhythm, Warm, well-perfused extremities RESP: Unlabored respiratory effort GI: soft, non-tender, non-distended, no masses MSK: Amputation of right lower extremity noted. Prosthetic is in place. No gross deformities appreciated Skin: Warm, dry. 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 Sensation and motor function of extremities grossly intact. Psych: Appropriate mood and affect. Course - Vital Signs Last Recorded V/S: Last Vital Signs Temp 35.9 C L 05/10/21 02:44 Pulse 89 05/10/21 02:44 Resp 18 05/10/21 02:44 BP 128/83 05/10/21 02:44 Pulse Ox 100 05/10/21 02:44 - Orders/Labs/Meds Orders: Active Orders 24 hr Category Date Time Status Head wo Cont [CT] Stat Exams 05/10/21 02:52 Taken Labs: Laboratory Tests 05/10/21 05/10/21 Range/Units 02:49 02:49 WBC 7.06 (4.23-9.07) K/mm3 RBC 4.71 (4.63-6.08) M/mm3 Hgb 14.3 D (13.7-17.5) gm/dl Hct 40.4 (40.1-51.0) % MCV 85.8 (79.0-92.2) fl MCH 30.4 (25.7-32.2) pg MCHC 35.4 (32.2-35.5) g/dl RDW Std Deviation 40.7 (35.1-43.9) fL Plt Count 303 (163-337) K/mm3 MPV 10.0 (9.4-12.3) fl Neut % (Auto) 58.0 (34.0-67.9) % Lymph % (Auto) 28.5 (21.8-53.1) % [place] % (Auto) 10.9 (5.3-12.2) % Eos % (Auto) 2.0 (0.8-7.0) Baso % (Auto) 0.3 (0.1-1.2) % Neut # (Auto) 4.10 (1.78-5.38) K/mm3 Lymph # (Auto) 2.01 (1.32-3.57) K/mm3 [place] # (Auto) 0.77 (0.30-0.82) K/mm3 Eos # (Auto) 0.14 (0.04-0.54) K/mm3 Baso # (Auto) 0.02 (0.01-0.08) K/mm3 Sodium 142 (136-145) mEq/L Potassium 2.9 L (3.5-5.1) mEq/L Chloride 104 (98-107) mEq/L Carbon Dioxide 22 (21-32) mEq/L Anion Gap 18.9 H (5-15) BUN 20 H (7-18) mg/dL Creatinine 1.1 (0.7-1.3) mg/dL Est Cr Clr Drug Dosing 77.42 mL/min Estimated GFR (MDRD) > 60 (>60) mL/min BUN/Creatinine Ratio 18.2 H (14-18) Glucose 98 (70-99) mg/dL Calcium 9.1 (8.5-10.1) mg/dL Total Bilirubin 0.4 (0.2-1.0) mg/dL AST 20 (15-37) U/L ALT 44 (16-63) U/L Alkaline Phosphatase 52 (46-116) U/L Total Protein 7.0 (6.4-8.2) g/dl Albumin 3.8 (3.4-5.0) g/dl Globulin 3.2 gm/dL Albumin/Globulin Ratio 1.2 (1-2) Ethyl Alcohol 0.00 (0.00) gm% Meds: Medications Discontinued Medications Generic Name Dose Route Start Last Admin Trade Name Tetoq PRN Reason Stop Dose Admin Potassium Chloride 60 meq 05/10/21 03:46 05/10/21 04:32 Potassium Chloride 20 Meq Tab.Er PO 05/10/21 03:47 60 meq ONETIME ONE Administration Departure - Departure Time of Disposition: 04:23 Disposition: Home, Self-Care 01 Clinical Impression: Methamphetamine abuse, Hypokalemia - Discharge Information Instructions: Hypokalemia, Methamphetamines Use Disorder Referrals: Tonya Harvey NP [Primary Care Provider] - Forms: ED Department Discharge Additional Instructions: Follow-up with your primary care physician in the next several days. Return to the emergency room for worsening symptoms or any other concerns. Sepsis Event Note (ED) - Focused Exam Vital Signs: Vital Signs Temp Pulse Resp BP Pulse Ox 05/10/21 02:44 35.9 C L 89 18 128/83 100 - My Orders Last 24 Hours: My Active Orders 05/10/21 02:52 Head wo Cont [CT] Stat - Assessment/Plan Last 24 Hours: My Active Orders 05/10/21 02:52 Head wo Cont [CT] Stat Assessment:: Patient is 55-year-old male after being unresponsive in his home. On reexamination, patient's is present. She states that she found the patient having a seizure describe some generalized tonic-clonic activity in the house. The patient and also disclosed that he is used meth within the last 4 days. Because of this, he has not slept at all. Patient otherwise had unremarkable ER course. His labs reviewed demonstrate mild hypokalemia and was given p.o. potassium in the emergency room. No other significant findings such as electrolyte aberrancy, intracranial hemorrhage, signs of infectious process. This point, patient is stable for discharge. His will drive him home and I urged follow-up with primary care in the next 1 to 2 days.
[2021-05-10] MEDS ORDERED: Potassium Chloride 20 MEQ Tab.ER PO ONE (03:46)
--- NOTE | 2021-05-10 06:54 | CT ---
Head CT Technique: Multiple axial sections through the brain were obtained. Intravenous contrast was not utilized. Reconstructed coronal and sagittal images were obtained. Comparison: Prior head CT study of 02/14/21. Findings: Ventricles along with basal cisterns and sulci over the convexities are slightly prominent. Small low density area is seen within the right thalamus which is stable most likely representing old lacunar infarct. Small areas of low signal are scattered within the periventricular white matter which most likely represent small vessel ischemic demyelination change. No other abnormal parenchymal densities are seen. No evidence of intracranial hemorrhage is seen. No midline shift or mass-effect is seen. No acute calvarial abnormality is seen. Impression: 1. Mild senescent change as described above. 2. Nothing acute is identified on noncontrast head CT study. Mild motion artifact is present. Diagnostic code #2 I agree with preliminary report from [facility], finalized on 05/10/21, 5:17 AM X RAY NURSE, code 1
== END 2021-05-10 04:35 | disposition home or self-care (01) ==
LOC: JD.ED 02:37
DX: F15.10 Other stimulant abuse, uncomplicated (principal); E87.6 Hypokalemia; E11.9 Type 2 diabetes mellitus without complications; E78.00 Pure hypercholesterolemia, unspecified; I10 Essential (primary) hypertension; Z88.0 Allergy status to penicillin; Z88.2 Allergy status to sulfonamides; Z88.8 Allergy status to other drugs, medicaments and biological substances; Z79.4 Long term (current) use of insulin
CPT/HCPCS: 36415; 70450; 80053; 80307; 85025; 99285; A9270

== ENCOUNTER 2021-11-11 15:40 | Emergency (ER) | payer MEDICARE, OTHER ==
[2021-11-11] MEDS ORDERED: Sodium Chloride 0.9% 10 ML Syringe FLUSH PRN (16:15)
[2021-11-11] MEDS ORDERED: Alum Hydrox/Mag Hydrox/Simeth 30 ML, Lidocaine 2% 15 ML PO ONE ×2 (16:15)
[2021-11-11 16:46] LABS: ESTIMATED GFR > 60 mL/min (>60)
[2021-11-11 17:44] VITALS: BP 165/85; PULSE 75
== END 2021-11-11 17:35 | disposition home or self-care (01) ==
LOC: JD.ED 15:40
DX: R07.89 Other chest pain (principal); I10 Essential (primary) hypertension; E11.9 Type 2 diabetes mellitus without complications; F17.210 Nicotine dependence, cigarettes, uncomplicated; E66.9 Obesity, unspecified; Z68.31 Body mass index [BMI] 31.0-31.9, adult; Z88.2 Allergy status to sulfonamides; Z88.0 Allergy status to penicillin; Z88.8 Allergy status to other drugs, medicaments and biological substances; Z79.899 Other long term (current) drug therapy; Z79.84 Long term (current) use of oral hypoglycemic drugs; Z79.4 Long term (current) use of insulin
CPT/HCPCS: 36415; 71045; 80053; 83735; 83880; 84484; 85025; 85379; 93005; 99285; A9270; J3490; 93010; 99284

== ENCOUNTER 2022-01-06 00:09 | Emergency (ER) | payer MEDICARE, OTHER ==
[2022-01-06] MEDS ORDERED: Morphine 2 MG/ML SYRINGE IVPUSH ONE ×2 (01:32→02:50)
[2022-01-06] MEDS: Nitroglycerin 0.4 MG Tab.SL SL PRN ×3 (01:44→01:54)
[2022-01-06] MEDS ORDERED: Lactated Ringers 1,000 ML IV SCH (01:45)
[2022-01-06] MEDS ORDERED: Alum Hydrox/Mag Hydrox/Simeth 30 ML, Lidocaine 2% 15 ML PO ONE ×2 (02:34)
[2022-01-06] MEDS ORDERED: Aspirin 81 MG Tab.Chew PO ONE (02:50)
[2022-01-06] MEDS ORDERED: Nitroglycerin/D5W 25 MG/250 ML BOTTLE IV SCH (03:00)
[2022-01-06] MEDS ORDERED: Heparin Sodium 5,000 Units/ML Vial IVPUSH ONE (03:05)
[2022-01-06] MEDS ORDERED: Heparin Sodium/D5W 25,000 UNITS/500 ML BAG IV SCH (03:15)
[2022-01-06 11:20] VITALS: BP 124/94; PULSE 88
== END 2022-01-06 11:13 ==
LOC: JD.ED 00:09
DX: I21.4 Non-ST elevation (NSTEMI) myocardial infarction (principal); E78.00 Pure hypercholesterolemia, unspecified; I10 Essential (primary) hypertension; E11.9 Type 2 diabetes mellitus without complications; E66.9 Obesity, unspecified; Z68.32 Body mass index [BMI] 32.0-32.9, adult; Z88.0 Allergy status to penicillin; Z88.2 Allergy status to sulfonamides; Z88.8 Allergy status to other drugs, medicaments and biological substances; Z79.4 Long term (current) use of insulin; Z79.899 Other long term (current) drug therapy
CPT/HCPCS: 36415; 71045; 80053; 83690; 84484; 85025; 85610; 85730; 93005; 96361; 96365; 96366; 96368; 96375; 96376; 99285; A9270; J1644; J2270; J3490; J7120

== ENCOUNTER 2022-08-17 11:05 | Emergency (ER) | payer MEDICARE, OTHER ==
[2022-08-17 12:13] VITALS: BP 183/100; PULSE 84
[2022-08-17] MEDS ORDERED: LORazepam 2 MG/ML SDV IM ONE (13:20)
[2022-08-17] MEDS ORDERED: Haloperidol Lactate 5 MG/ML SDV IM ONE (13:20)
== END 2022-08-17 16:30 ==
LOC: JD.ED 11:05
DX: R44.1 Visual hallucinations (principal); F15.90 Other stimulant use, unspecified, uncomplicated; R45.851 Suicidal ideations; E78.00 Pure hypercholesterolemia, unspecified; I10 Essential (primary) hypertension; K21.9 Gastro-esophageal reflux disease without esophagitis; E11.9 Type 2 diabetes mellitus without complications; E66.9 Obesity, unspecified; Z68.29 Body mass index [BMI] 29.0-29.9, adult; Z88.0 Allergy status to penicillin; Z88.2 Allergy status to sulfonamides; Z88.8 Allergy status to other drugs, medicaments and biological substances; Z86.16 Personal history of COVID-19; Z79.4 Long term (current) use of insulin; Z79.899 Other long term (current) drug therapy; Z20.822 Contact with and (suspected) exposure to COVID-19
CPT/HCPCS: 36415; 80053; 80143; 80179; 80306; 80307; 84443; 85007; 85027; 93005; 96372; 99285; J1630; J2060; U0002

== ENCOUNTER 2023-05-16 17:55 | Emergency (ER) | payer MEDICARE, OTHER ==
[2023-05-16] MEDS ORDERED: 50% Dextrose in Water 50 ML Syringe IVPUSH ONE (18:02)
[2023-05-16] MEDS ORDERED: Dextrose 5%-0.9% NaCl 1,000 ML IV SCH (18:15)
[2023-05-16 18:35] LABS: BASOPHILS PERCENT AUTO 0.3 % (0.0-1.0); EOSINOPHILS ABSOLUTE AUTO 0.1 K/mm3 (0.0-0.4); EOSINOPHILS PERCENT AUTO 1.3 % (0.0-6.0); HEMOGLOBIN 14.5 gm/dl (14.0-18.0); IMMATURE GRAN ABSOLUTE AUTO 0.03 K/mm3 (0.00-0.05); IMMATURE GRAN PERCENT AUTO 0.3 % (0.0-0.4); LYMPHOCYTES ABSOLUTE AUTO 1.8 K/mm3 (1.0-4.8); LYMPHOCYTES PERCENT AUTO 18.2 % (24.0-44.0); MEAN CORPUSCULAR HEMOGLOBIN 30.3 pg (28.0-32.0); MEAN CORPUSCULAR HGB CONC 36.3 g/dl (32.0-36.0); MEAN CORPUSCULAR VOLUME 83.7 fl (83.0-99.0); MEAN PLATELET VOLUME 10.1 fl (9.4-12.4); MONOCYTES ABSOLUTE AUTO 0.6 K/mm3 (0.0-0.8); MONOCYTES PERCENT AUTO 5.7 % (0.0-8.0); NEUTROPHILS ABSOLUTE AUTO 7.4 K/mm3 (1.8-7.7); NEUTROPHILS PERCENT AUTO 74.2 % (41.0-71.0); PLATELET COUNT,PLT 263 K/mm3 (150-400); RED BLOOD CELL COUNT 4.78 M/mm3 (4.52-5.90); WHITE BLOOD CELL COUNT,WBC 9.92 K/mm3 (3.9-11.3)
[2023-05-16] MEDS ORDERED: Aluminum Hydroxide/Magnesium Hydroxide/Simethicone Susp 30 ML Cup PO ONE (18:38)
[2023-05-16 18:47] LABS: HEMOGLOBIN A1C 6.9 %
[2023-05-16 19:14] LABS: A/G RATIO 1.1 (1-2); ALANINE AMINOTRANSFERASE,ALT 20 U/L (16-63); ALBUMIN 3.7 g/dl (3.4-5.0); ALKALINE PHOSPHATASE 60 U/L (46-116); ANION GAP 17.2 (5-15); ASPARTATE AMNIOTRANSFERASE,AST 14 U/L (15-37); BILIRUBIN TOTAL 0.4 mg/dL (0.2-1.0); BLOOD UREA NITROGEN,BUN 13 mg/dL (7-18); BUN/CREATININE RATIO 14.4 (14-18); C-REACTIVE PROTEIN <0.2 mg/dL (<1.0); CARBON DIOXIDE,CO2 22 mEq/L (21-32); CHLORIDE,CL 104 mEq/L (98-107); CREATINE KINASE,CK 116 U/L (39-308); CREATININE 0.9 mg/dL (0.7-1.3); EST CRCL DRUG DOSING (CG) 89.47 mL/min; ESTIMATED GFR 99 mL/min (>60); GLUCOSE RANDOM 144 mg/dL (70-99); POTASSIUM,K 3.2 mEq/L (3.5-5.1); PROTEIN TOTAL,TP 7.2 g/dl (6.4-8.2); SODIUM,NA 140 mEq/L (136-145); TROPONIN I HIGH SENSITIVITY 19 pg/mL (<=76)
[2023-05-16] MEDS ORDERED: Acetaminophen/oxyCODONE 325-5 MG Tab PO ONE (19:46)
[2023-05-16 19:54] LABS: APPEARANCE,URINE CLEAR (Clear); BILIRUBIN,URINE NEGATIVE (Negative); COLOR,URINE YELLOW (Yellow); GLUCOSE,URINE TRACE (Negative); KETONES,URINE NEGATIVE (Negative); LEUKOCYTE ESTERASE,URINE NEGATIVE (Negative); NITRITE,URINE NEGATIVE (Negative); OCCULT BLOOD,URINE NEGATIVE (Negative); PROTEIN,URINE 1+ (Negative); UROBILINOGEN,URINE 0.2 (0.2-1.0)
[2023-05-16 20:29] LABS: BACTERIA,URINE OCCASIONAL /hpf (FEW); MUCUS,URINE MODERATE /hpf (FEW); RBC,URINE 0-5 /hpf (0-5); SQUAMOUS EPITHELIAL CELLS,UR 0-5 /hpf (0-5); WBC,URINE 0-5 /hpf (0-5)
[2023-05-16 20:34] VITALS: BP 180/92; PULSE 64
== END 2023-05-16 20:30 | disposition home or self-care (01) ==
LOC: JD.ED 17:55
DX: G40.409 Other generalized epilepsy and epileptic syndromes, not intractable, without status epilepticus (principal); E11.649 Type 2 diabetes mellitus with hypoglycemia without coma; I10 Essential (primary) hypertension; I25.2 Old myocardial infarction; J45.909 Unspecified asthma, uncomplicated; E66.9 Obesity, unspecified; Z68.30 Body mass index [BMI] 30.0-30.9, adult; Z86.16 Personal history of COVID-19; Z79.899 Other long term (current) drug therapy; Z88.0 Allergy status to penicillin; Z88.2 Allergy status to sulfonamides; Z88.8 Allergy status to other drugs, medicaments and biological substances; Z79.4 Long term (current) use of insulin
CPT/HCPCS: 36415; 71045; 80053; 80307; 81001; 82550; 82947; 83036; 83605; 83735; 83880; 84484; 85025; 86140; 93005; 96361; 96374; 99285; A9270; J7042; 93010; 99284; J3490

== ENCOUNTER 2023-07-12 02:45 | Emergency (ER) | payer MEDICARE, OTHER ==
[2023-07-12] MEDS: OLANZapine 10 MG Vial IM ONE (03:26)
[2023-07-12 04:48] VITALS: BP 116/71; PULSE 88
== END 2023-07-12 04:00 | disposition home or self-care (01) ==
LOC: JD.ED 02:45
DX: F39 Unspecified mood [affective] disorder (principal); F51.04 Psychophysiologic insomnia; G40.309 Generalized idiopathic epilepsy and epileptic syndromes, not intractable, without status epilepticus; I10 Essential (primary) hypertension; I25.2 Old myocardial infarction; J45.909 Unspecified asthma, uncomplicated; E78.00 Pure hypercholesterolemia, unspecified; E66.9 Obesity, unspecified; E11.9 Type 2 diabetes mellitus without complications; Z68.30 Body mass index [BMI] 30.0-30.9, adult; Z86.16 Personal history of COVID-19; Z88.0 Allergy status to penicillin; Z88.2 Allergy status to sulfonamides; Z88.8 Allergy status to other drugs, medicaments and biological substances; Z79.4 Long term (current) use of insulin; Z79.84 Long term (current) use of oral hypoglycemic drugs; Z79.899 Other long term (current) drug therapy
CPT/HCPCS: 96372; 99284; J2405

== ENCOUNTER 2023-07-12 15:54 | Emergency (ER) | payer MEDICARE, OTHER ==
[2023-07-12] MEDS: OLANZapine 10 MG Vial IM ONE (17:32)
[2023-07-12 18:48] VITALS: BP 135/88; PULSE 75
== END 2023-07-12 18:48 | disposition home or self-care (01) ==
LOC: JD.ED 15:54
DX: Z76.0 Encounter for issue of repeat prescription (principal); I10 Essential (primary) hypertension; I25.2 Old myocardial infarction; J45.909 Unspecified asthma, uncomplicated; E78.00 Pure hypercholesterolemia, unspecified; E66.9 Obesity, unspecified; E11.9 Type 2 diabetes mellitus without complications; Z68.30 Body mass index [BMI] 30.0-30.9, adult; Z86.16 Personal history of COVID-19; Z88.0 Allergy status to penicillin; Z88.2 Allergy status to sulfonamides; Z88.8 Allergy status to other drugs, medicaments and biological substances; Z79.4 Long term (current) use of insulin; Z79.84 Long term (current) use of oral hypoglycemic drugs; Z79.899 Other long term (current) drug therapy
CPT/HCPCS: 96372; 99281; 99284; J2405

== ENCOUNTER 2023-07-13 10:02 | Emergency (ER) | payer MEDICARE, OTHER ==
[2023-07-13 10:32] VITALS: BP 153/83; PULSE 84
[2023-07-13 10:47] LABS: BASOPHILS ABSOLUTE AUTO 0.1 K/mm3 (0.0-0.2); BASOPHILS PERCENT AUTO 0.5 % (0.0-1.0); EOSINOPHILS ABSOLUTE AUTO 0.1 K/mm3 (0.0-0.4); EOSINOPHILS PERCENT AUTO 0.9 % (0.0-6.0); HEMATOCRIT 48.1 % (42.0-52.0); IMMATURE GRAN ABSOLUTE AUTO 0.04 K/mm3 (0.00-0.05); IMMATURE GRAN PERCENT AUTO 0.4 % (0.0-0.4); LYMPHOCYTES ABSOLUTE AUTO 2.3 K/mm3 (1.0-4.8); LYMPHOCYTES PERCENT AUTO 20.3 % (24.0-44.0); MEAN CORPUSCULAR HEMOGLOBIN 30.4 pg (28.0-32.0); MEAN CORPUSCULAR HGB CONC 35.3 g/dl (32.0-36.0); MEAN CORPUSCULAR VOLUME 85.9 fl (83.0-99.0); MEAN PLATELET VOLUME 9.7 fl (9.4-12.4); MONOCYTES ABSOLUTE AUTO 0.8 K/mm3 (0.0-0.8); MONOCYTES PERCENT AUTO 7.1 % (0.0-8.0); NEUTROPHILS ABSOLUTE AUTO 7.9 K/mm3 (1.8-7.7); NEUTROPHILS PERCENT AUTO 70.8 % (41.0-71.0); PLATELET COUNT,PLT 312 K/mm3 (150-400)
[2023-07-13 11:08] LABS: A/G RATIO 1.1 (1-2); ALBUMIN 4.3 g/dl (3.4-5.0); ANION GAP 16.3 (5-15); BILIRUBIN TOTAL 1.1 mg/dL (0.2-1.0); BUN/CREATININE RATIO 26.7 (14-18); CALCIUM 9.1 mg/dL (8.5-10.1); CREATININE 0.9 mg/dL (0.7-1.3); EST CRCL DRUG DOSING (CG) 91.25 mL/min; POTASSIUM,K 3.3 mEq/L (3.5-5.1); PROTEIN TOTAL,TP 8.4 g/dl (6.4-8.2); T4 FREE 1.44 ng/dL (0.76-1.46)
[2023-07-13 13:32] LABS: APPEARANCE,URINE CLEAR (Clear); BILIRUBIN,URINE NEGATIVE (Negative); COLOR,URINE YELLOW (Yellow); GLUCOSE,URINE NEGATIVE (Negative); KETONES,URINE TRACE (Negative); LEUKOCYTE ESTERASE,URINE NEGATIVE (Negative); NITRITE,URINE NEGATIVE (Negative); OCCULT BLOOD,URINE NEGATIVE (Negative); PH,URINE 5.5 (5.0-8.0); PROTEIN,URINE NEGATIVE (Negative); UROBILINOGEN,URINE 0.2 (0.2-1.0)
[2023-07-13 13:39] LABS: BARBITURATE SCREEN,URINE NEGATIVE (CUTOFF=200); BENZODIAZEPINES SCREEN,URINE NEGATIVE (CUTOFF=150); BUPRENORPHINE SCREEN,URINE NEGATIVE (CUTOFF=10); METHADONE SCREEN, URINE NEGATIVE (CUT0FF=200); METHAMPHETAMINES SCREEN, URINE NEGATIVE (CUTOFF=500); OXYCODONE SCREEN,URINE PRESUMPTIVE POSITIVE (CUT0FF=100); THC SCREEN,URINE 20 NG/ML NEGATIVE (CUTOFF=50)
[2023-07-13 13:55] LABS: AMPHETAMINES SCREEN, URINE NEGATIVE (CUTOFF=500)
[2023-07-13 14:09] LABS: BACTERIA,URINE FEW /hpf (FEW); HYALINE CASTS,URINE 0-5 /lpf (0-5); MUCUS,URINE MODERATE /hpf (FEW); RBC,URINE 0-5 /hpf (0-5); SQUAMOUS EPITHELIAL CELLS,UR 0-5 /hpf (0-5); WBC,URINE 0-5 /hpf (0-5)
== END 2023-07-13 16:45 ==
LOC: JD.ED 10:02
DX: F23 Brief psychotic disorder (principal); I10 Essential (primary) hypertension; I25.2 Old myocardial infarction; J44.9 Chronic obstructive pulmonary disease, unspecified; E11.9 Type 2 diabetes mellitus without complications; Z79.4 Long term (current) use of insulin; Z79.84 Long term (current) use of oral hypoglycemic drugs; Z88.8 Allergy status to other drugs, medicaments and biological substances; Z88.0 Allergy status to penicillin; Z88.2 Allergy status to sulfonamides; Z95.1 Presence of aortocoronary bypass graft; Z86.16 Personal history of COVID-19; Z79.899 Other long term (current) drug therapy
CPT/HCPCS: 36415; 80053; 80143; 80179; 80306; 80307; 81001; 84439; 85025; 99285

== ENCOUNTER 2023-08-22 00:27 | Emergency (ER) | payer MEDICARE, OTHER ==
[2023-08-22 00:37] VITALS: BP 132/79; PULSE 76
== END 2023-08-22 01:39 | disposition home or self-care (01) ==
LOC: JD.ED 00:27
DX: M62.830 Muscle spasm of back (principal); I10 Essential (primary) hypertension; I25.2 Old myocardial infarction; E78.00 Pure hypercholesterolemia, unspecified; J44.9 Chronic obstructive pulmonary disease, unspecified; E11.9 Type 2 diabetes mellitus without complications; Z95.1 Presence of aortocoronary bypass graft; Z88.0 Allergy status to penicillin; Z88.2 Allergy status to sulfonamides; Z88.6 Allergy status to analgesic agent; Z79.84 Long term (current) use of oral hypoglycemic drugs; Z79.4 Long term (current) use of insulin; Z79.899 Other long term (current) drug therapy; Z86.16 Personal history of COVID-19; Z87.891 Personal history of nicotine dependence
CPT/HCPCS: 96372; 99283; J3360

== ENCOUNTER 2024-07-10 16:27 | Emergency (ER) | payer MEDICARE, OTHER ==
[2024-07-10 17:05] VITALS: BP 158/105; PULSE 72
[2024-07-10] MEDS: Ketorolac 30 MG/ML SDV IM ONE (17:57)
== END 2024-07-10 18:26 | disposition home or self-care (01) ==
LOC: JD.ED 16:27
DX: S30.0XXA Contusion of lower back and pelvis, initial encounter (principal); I10 Essential (primary) hypertension; E78.00 Pure hypercholesterolemia, unspecified; I25.2 Old myocardial infarction; E11.9 Type 2 diabetes mellitus without complications; E66.9 Obesity, unspecified; K21.9 Gastro-esophageal reflux disease without esophagitis; J45.909 Unspecified asthma, uncomplicated; Z95.1 Presence of aortocoronary bypass graft; Z79.84 Long term (current) use of oral hypoglycemic drugs; Z79.899 Other long term (current) drug therapy; Z88.0 Allergy status to penicillin; Z88.2 Allergy status to sulfonamides; Z88.8 Allergy status to other drugs, medicaments and biological substances; Z68.31 Body mass index [BMI] 31.0-31.9, adult; W01.0XXA Fall on same level from slipping, tripping and stumbling without subsequent striking against object, initial encounter
CPT/HCPCS: 72131; 72192; 96372; 99283; J1885

== ENCOUNTER 2024-08-16 15:47 | Emergency (ER) | payer MEDICARE, OTHER ==
[2024-08-16 16:32] LABS: BASOPHILS PERCENT AUTO 0.4 % (0.0-1.0); EOSINOPHILS ABSOLUTE AUTO 0.1 K/mm3 (0.0-0.4); EOSINOPHILS PERCENT AUTO 1.4 % (0.0-6.0); HEMATOCRIT 40.2 % (42.0-52.0); IMMATURE GRAN ABSOLUTE AUTO 0.02 K/mm3 (0.00-0.05); IMMATURE GRAN PERCENT AUTO 0.3 % (0.0-0.4); LYMPHOCYTES ABSOLUTE AUTO 1.6 K/mm3 (1.0-4.8); LYMPHOCYTES PERCENT AUTO 19.7 % (24.0-44.0); MEAN CORPUSCULAR HEMOGLOBIN 30.5 pg (28.0-32.0); MEAN CORPUSCULAR HGB CONC 35.1 g/dl (32.0-36.0); MONOCYTES ABSOLUTE AUTO 0.6 K/mm3 (0.0-0.8); NEUTROPHILS ABSOLUTE AUTO 5.6 K/mm3 (1.8-7.7); NEUTROPHILS PERCENT AUTO 70.2 % (41.0-71.0); PLATELET COUNT,PLT 238 K/mm3 (150-400); RED BLOOD CELL COUNT 4.62 M/mm3 (4.52-5.90); WHITE BLOOD CELL COUNT,WBC 7.98 K/mm3 (3.9-11.3)
[2024-08-16 16:37] LABS: HEMOGLOBIN 14.1 gm/dl (14.0-18.0)
[2024-08-16 17:10] LABS: ALBUMIN 3.4 g/dl (3.4-5.0); ANION GAP 11.4 (5-15); BILIRUBIN TOTAL 0.5 mg/dL (0.2-1.0); BUN/CREATININE RATIO 11.1 (14-18); C-REACTIVE PROTEIN 1.57 mg/dL (<0.30); CALCIUM 8.4 mg/dL (8.5-10.1); CREATININE 0.9 mg/dL (0.7-1.3); EST CRCL DRUG DOSING (CG) 90.12 mL/min; POTASSIUM,K 3.4 mEq/L (3.5-5.1); PROTEIN TOTAL,TP 6.7 g/dl (6.4-8.2)
[2024-08-16] MEDS ORDERED: predniSONE 20 MG Tab PO ONE (18:43)
[2024-08-16] MEDS: Acetaminophen/oxyCODONE 325-5 MG Tab PO ONE (19:01)
[2024-08-16 19:13] VITALS: BP 141/91; PULSE 87
== END 2024-08-16 19:12 | disposition home or self-care (01) ==
LOC: JD.ED 15:47
DX: M54.42 Lumbago with sciatica, left side (principal); I10 Essential (primary) hypertension; I25.2 Old myocardial infarction; J44.89 Other specified chronic obstructive pulmonary disease; E66.9 Obesity, unspecified; E11.9 Type 2 diabetes mellitus without complications; F17.210 Nicotine dependence, cigarettes, uncomplicated; Z88.0 Allergy status to penicillin; Z88.2 Allergy status to sulfonamides; Z88.8 Allergy status to other drugs, medicaments and biological substances; Z79.4 Long term (current) use of insulin; Z79.899 Other long term (current) drug therapy; Z86.16 Personal history of COVID-19; Z68.28 Body mass index [BMI] 28.0-28.9, adult; W19.XXXA Unspecified fall, initial encounter
CPT/HCPCS: 36415; 70450; 80053; 80307; 85025; 86140; 87428; 99284; A9270

== ENCOUNTER 2025-02-10 19:39 | Inpatient (IN) | payer MEDICARE, OTHER ==
[2025-02-10 20:07] LABS: BASOPHILS ABSOLUTE AUTO 0.0 K/mm3 (0.0-0.2); BASOPHILS PERCENT AUTO 0.7 % (0.0-1.0); EOSINOPHILS ABSOLUTE AUTO 0.1 K/mm3 (0.0-0.4); EOSINOPHILS PERCENT AUTO 1.2 % (0.0-6.0); IMMATURE GRAN ABSOLUTE AUTO 0.02 K/mm3 (0.00-0.05); IMMATURE GRAN PERCENT AUTO 0.3 % (0.0-0.4); LYMPHOCYTES ABSOLUTE AUTO 1.6 K/mm3 (1.0-4.8); LYMPHOCYTES PERCENT AUTO 27.4 % (24.0-44.0); MEAN PLATELET VOLUME 10.3 fl (9.4-12.4); MONOCYTES ABSOLUTE AUTO 0.4 K/mm3 (0.0-0.8); MONOCYTES PERCENT AUTO 7.2 % (0.0-8.0); NEUTROPHILS ABSOLUTE AUTO 3.7 K/mm3 (1.8-7.7); NEUTROPHILS PERCENT AUTO 63.2 % (41.0-71.0); NRBC ABSOLUTE 0.00 (0.00-0.02); NRBC PERCENT 0.0 % (0.0-0.2); PLATELET COUNT,PLT 285 K/mm3 (150-400); RED BLOOD CELL COUNT 5.40 M/mm3 (4.52-5.90); WHITE BLOOD CELL COUNT,WBC 5.83 K/mm3 (3.9-11.3)
[2025-02-10 20:24] LABS: INR 1.04
[2025-02-10 20:25] LABS: PTT,PARTIAL THROMBOPLSTIN TIME 28.3 SECONDS (21.7-31.4)
[2025-02-10 20:30] LABS: A/G RATIO 1.1 (1-2); ALANINE AMINOTRANSFERASE,ALT 34 U/L (16-63); ASPARTATE AMNIOTRANSFERASE,AST 18 U/L (15-37); BILIRUBIN TOTAL 0.6 mg/dL (0.2-1.0); BLOOD UREA NITROGEN,BUN 15 mg/dL (7-18); CARBON DIOXIDE,CO2 25 mEq/L (21-32); CHLORIDE,CL 104 mEq/L (98-107); CREATININE 1.0 mg/dL (0.7-1.3); ESTIMATED GFR 86 mL/min (>60); GLUCOSE RANDOM 259 mg/dL (70-99); POTASSIUM,K 3.9 mEq/L (3.5-5.1); PROTEIN TOTAL,TP 7.6 g/dl (6.4-8.2); SODIUM,NA 140 mEq/L (136-145); TROPONIN I HIGH SENSITIVITY 21 pg/mL (<=76)
[2025-02-10 21:06] LABS: APPEARANCE,URINE CLEAR (Clear); GLUCOSE,URINE 2+ (Negative); OCCULT BLOOD,URINE NEGATIVE (Negative)
[2025-02-10] MEDS ORDERED: 50% Dextrose in Water 50 ML Syringe IVPUSH PRN (22:00)
[2025-02-10 22:34] LABS: BUPRENORPHINE SCREEN,URINE NEGATIVE (CUTOFF=10); METHADONE SCREEN, URINE NEGATIVE (CUT0FF=200); METHAMPHETAMINES SCREEN, URINE NEGATIVE (CUTOFF=500); OXYCODONE SCREEN,URINE NEGATIVE (CUT0FF=100); THC SCREEN,URINE 20 NG/ML NEGATIVE (CUTOFF=50)
[2025-02-10 22:40] LABS: TSH 0.687 uIU/mL (0.358-3.74)
[2025-02-10 22:51] LABS: AMPHETAMINES SCREEN, URINE NEGATIVE (CUTOFF=500)
[2025-02-11 05:56] LABS: BASOPHILS ABSOLUTE AUTO 0.0 K/mm3 (0.0-0.2); BASOPHILS PERCENT AUTO 0.3 % (0.0-1.0); EOSINOPHILS ABSOLUTE AUTO 0.1 K/mm3 (0.0-0.4); EOSINOPHILS PERCENT AUTO 1.1 % (0.0-6.0); IMMATURE GRAN ABSOLUTE AUTO 0.02 K/mm3 (0.00-0.05); IMMATURE GRAN PERCENT AUTO 0.3 % (0.0-0.4); LYMPHOCYTES ABSOLUTE AUTO 2.6 K/mm3 (1.0-4.8); LYMPHOCYTES PERCENT AUTO 36.2 % (24.0-44.0); MEAN PLATELET VOLUME 10.5 fl (9.4-12.4); MONOCYTES ABSOLUTE AUTO 0.7 K/mm3 (0.0-0.8); MONOCYTES PERCENT AUTO 10.0 % (0.0-8.0); NEUTROPHILS ABSOLUTE AUTO 3.7 K/mm3 (1.8-7.7); NEUTROPHILS PERCENT AUTO 52.1 % (41.0-71.0); NRBC ABSOLUTE 0.00 (0.00-0.02); NRBC PERCENT 0.0 % (0.0-0.2); PLATELET COUNT,PLT 254 K/mm3 (150-400); RED BLOOD CELL COUNT 4.99 M/mm3 (4.52-5.90); WHITE BLOOD CELL COUNT,WBC 7.12 K/mm3 (3.9-11.3)
[2025-02-11 06:28] LABS: A/G RATIO 1.2 (1-2); ALANINE AMINOTRANSFERASE,ALT 32.0 U/L (16-63); ASPARTATE AMNIOTRANSFERASE,AST 15.0 U/L (15-37); BILIRUBIN TOTAL 0.7 mg/dL (0.2-1.0); BLOOD UREA NITROGEN,BUN 18.0 mg/dL (7-18); CARBON DIOXIDE,CO2 25.0 mEq/L (21-32); CHOLESTEROL HDL 50.0 mg/dL (40-59); CHOLESTEROL LDL DIRECT 82.0 mg/dL (<100); CHOLESTEROL TOTAL 157.0 mg/dL (<200); CREATININE 1.0 mg/dL (0.7-1.3); EST CRCL DRUG DOSING (CG) 81.11 mL/min; ESTIMATED GFR 86.0 mL/min (>60); GLUCOSE RANDOM 224.0 mg/dL (70-99); PROTEIN TOTAL,TP 7.3 g/dl (6.4-8.2); SODIUM,NA 138.0 mEq/L (136-145)
[2025-02-11 06:50] LABS: CHLORIDE,CL 100.0 mEq/L (98-107)
[2025-02-11 06:57] LABS: POTASSIUM,K 3.2 mEq/L (3.5-5.1)
[2025-02-11] MEDS: Insulin Lispro 100 Unit/ML 3 ML KwikPen SUBCUT SCH ×2 (07:22→11:51)
[2025-02-11 08:58] VITALS: BP 165/97; PULSE 86
[2025-02-11] MEDS: Gadobenate Dimeglumine 529 MG/ML 20 ML SDV IVPUSH ONE (11:33)
[2025-02-11] MEDS: Sodium Chloride 0.9% 10 ML Syringe FLUSH SCH (11:33)
[2025-02-11] MEDS: Potassium Chloride 20 MEQ Tab.ER PO ONE (13:12)
== END 2025-02-11 14:53 | disposition home or self-care (01) | DRG 948 ==
LOC: JD.ED 19:39 → JD.MS 21:22
PROVIDERS: ADMIT Family Medicine; ATTEND Family Medicine
DX: R41.82 Altered mental status, unspecified (principal); S09.90XA Unspecified injury of head, initial encounter; J45.20 Mild intermittent asthma, uncomplicated; J44.9 Chronic obstructive pulmonary disease, unspecified; I10 Essential (primary) hypertension; K21.9 Gastro-esophageal reflux disease without esophagitis; G43.909 Migraine, unspecified, not intractable, without status migrainosus; F41.9 Anxiety disorder, unspecified; F32.A Depression, unspecified; I25.2 Old myocardial infarction; W19.XXXA Unspecified fall, initial encounter; M54.42 Lumbago with sciatica, left side; M54.41 Lumbago with sciatica, right side; G89.29 Other chronic pain; H54.7 Unspecified visual loss; F17.200 Nicotine dependence, unspecified, uncomplicated; E78.00 Pure hypercholesterolemia, unspecified; E11.9 Type 2 diabetes mellitus without complications; N20.0 Calculus of kidney; E66.9 Obesity, unspecified; Z68.29 Body mass index [BMI] 29.0-29.9, adult; Z79.899 Other long term (current) drug therapy; Z89.511 Acquired absence of right leg below knee; Z79.4 Long term (current) use of insulin; Z88.2 Allergy status to sulfonamides; Z79.84 Long term (current) use of oral hypoglycemic drugs; Z88.8 Allergy status to other drugs, medicaments and biological substances; Z86.16 Personal history of COVID-19; Z88.0 Allergy status to penicillin; Z98.890 Other specified postprocedural states; Z95.5 Presence of coronary angioplasty implant and graft
CPT/HCPCS: 36415; 70450; 71045; 72125; 80053; 80306; 81003; 82140; 83036; 84443; 84484; 85025; 85610; 85730; 93005; 99285; A9270; 70553; 70553-26; 80061; 82550; 82947; 93010; 94640; 97112-GP; 97161-GP; 99223; A9577; J1650

== ENCOUNTER 2025-04-21 12:06 | Emergency (ER) | payer MEDICARE, OTHER ==
[2025-04-21 13:08] LABS: BASOPHILS ABSOLUTE AUTO 0.0 K/mm3 (0.0-0.2); BASOPHILS PERCENT AUTO 0.7 % (0.0-1.0); EOSINOPHILS ABSOLUTE AUTO 0.0 K/mm3 (0.0-0.4); EOSINOPHILS PERCENT AUTO 0.7 % (0.0-6.0); IMMATURE GRAN ABSOLUTE AUTO 0.01 K/mm3 (0.00-0.05); IMMATURE GRAN PERCENT AUTO 0.2 % (0.0-0.4); LYMPHOCYTES ABSOLUTE AUTO 0.8 K/mm3 (1.0-4.8); LYMPHOCYTES PERCENT AUTO 19.4 % (24.0-44.0); MEAN PLATELET VOLUME 9.9 fl (9.4-12.4); MONOCYTES ABSOLUTE AUTO 0.4 K/mm3 (0.0-0.8); MONOCYTES PERCENT AUTO 9.1 % (0.0-8.0); NEUTROPHILS ABSOLUTE AUTO 3.0 K/mm3 (1.8-7.7); NEUTROPHILS PERCENT AUTO 69.9 % (41.0-71.0); NRBC ABSOLUTE 0.00 (0.00-0.02); NRBC PERCENT 0.0 % (0.0-0.2); PLATELET COUNT,PLT 207 K/mm3 (150-400); RED BLOOD CELL COUNT 5.31 M/mm3 (4.52-5.90); WHITE BLOOD CELL COUNT,WBC 4.28 K/mm3 (3.9-11.3)
[2025-04-21 13:21] LABS: A/G RATIO 1.2 (1-2); ALANINE AMINOTRANSFERASE,ALT 31.0 U/L (16-63); ASPARTATE AMNIOTRANSFERASE,AST 23.0 U/L (15-37); BILIRUBIN TOTAL 2.0 mg/dL (0.2-1.0); BLOOD UREA NITROGEN,BUN 15.0 mg/dL (7-18); CARBON DIOXIDE,CO2 26.0 mEq/L (21-32); CHLORIDE,CL 102.0 mEq/L (98-107); CREATININE 1.1 mg/dL (0.7-1.3); EST CRCL DRUG DOSING (CG) 73.74 mL/min; ESTIMATED GFR 77.0 mL/min (>60); GLUCOSE RANDOM 289.0 mg/dL (70-99); POTASSIUM,K 3.8 mEq/L (3.5-5.1); PROTEIN TOTAL,TP 7.4 g/dl (6.4-8.2); SODIUM,NA 137.0 mEq/L (136-145); TROPONIN I HIGH SENSITIVITY 14.0 pg/mL (<=76)
[2025-04-21] MEDS: Ondansetron 4 MG/2 ML SDV IVPUSH ONE (14:43)
[2025-04-21 16:04] VITALS: BP 189/93; PULSE 89
== END 2025-04-21 16:04 | disposition home or self-care (01) ==
LOC: JD.ED 12:06
DX: G50.0 Trigeminal neuralgia (principal); J32.0 Chronic maxillary sinusitis; I10 Essential (primary) hypertension; J44.89 Other specified chronic obstructive pulmonary disease; K21.9 Gastro-esophageal reflux disease without esophagitis; E11.9 Type 2 diabetes mellitus without complications; E66.9 Obesity, unspecified; F17.210 Nicotine dependence, cigarettes, uncomplicated; Z95.5 Presence of coronary angioplasty implant and graft; Z88.0 Allergy status to penicillin; Z88.2 Allergy status to sulfonamides; Z88.8 Allergy status to other drugs, medicaments and biological substances; Z91.041 Radiographic dye allergy status; Z79.4 Long term (current) use of insulin; Z79.899 Other long term (current) drug therapy; Z68.27 Body mass index [BMI] 27.0-27.9, adult
CPT/HCPCS: 36415; 70486; 80053; 84484; 85025; 86140; 93005; 96365; 96375; 96376; 99284; A9270; J0696; J1171; J2405; 93010